=== PATIENT | male | born 1940 | race Caucasian/White ===

== ENCOUNTER 2016-08-13 08:36 | Day surgery (SDC) | payer MEDICARE, BC ==
[~2016-08-13 08:36] MED LIST: Acetaminophen TAB* 325 MG PO PRN; Buffered Lidocaine 1% SYRIN* 3 ML/SYR SYRINGE INTRADERM ONE
[2016-08-13] MEDS ORDERED: Midazolam* 1 MG/ML 5 ML VIAL (5 MG) ONE (10:31)
[2016-08-13] MEDS ORDERED: fentaNYL* 50 MCG/ML 2 ML VIAL (100 MCG VIAL) ONE (11:02)
[2016-08-13 11:32] VITALS: BP 146/82
[2016-08-13] MEDS ORDERED: Proparacaine 0.5% OPHTH.SOL* 15 ML BTL ONE (13:43)
[2016-08-13] MEDS ORDERED: Povidone Iodine 5% OPTH* 30 ML BTL ONE (13:43)
[2016-08-13] MEDS ORDERED: Neomycin/Polymy/Dex OPTH.SUSP* MAXITROL 0.1% 5 ML ONE (13:43)
[2016-08-13] MEDS ORDERED: Lidocaine 2% EPI 1:200000 MPF* 20 ML VIAL ONE (13:43)
[2016-08-13] MEDS ORDERED: Lidocaine 1% MPF* 2 ML VIAL ONE (13:43)
[2016-08-13] MEDS ORDERED: Cyclopentolate 1% OPTH.SOL* 2 ML BTL ONE (13:43)
[2016-08-13] MEDS ORDERED: Flurbiprofen 0.03% OPTH.SOL* 2.5 ML BTL ONE (13:43)
[2016-08-13] MEDS ORDERED: acetaZOLAMIDE TAB* 250 MG ONE (13:43)
[2016-08-13] MEDS ORDERED: Phenylephrine 2.5% OPTH.SOL* 2 ML BTL ONE (13:43)
--- NOTE | 2016-08-13 15:08 | OP ---
DATE OF OPERATION: 08/13/2016 - [facility] DATE OF : 1940. SURGEON: Tuan Slade M.D. PREOPERATIVE DIAGNOSIS: Cataract left eye. POSTOPERATIVE DIAGNOSIS: Cataract left eye. OPERATIVE PROCEDURE: Phacoemulsification left eye with IOL. DESCRIPTION OF PROCEDURE: The patient was brought to the operating room after being given 1/2% Alcaine with epinephrine drops in the preoperative area. The eye was prepped and draped in the usual sterile fashion. Sterile drape and eyelid speculum were placed. Again, topical 1/2% Alcaine with epinephrine was given. A paracentesis incision was made at the 3 o'clock position with the No.75 blade. Clear cornea incision 2.2 x 2.2-mm was created at the 6 o'clock position starting at the anterior limbus using the 2.2-mm keratome. The anterior chamber was irrigated with 0.4 mL of 1% non-preservative intracameral lidocaine and filled with DisCoVisc. A capsulorrhexis was completed using the cystotome and the Utrata forceps. Hydrodissection was performed with balanced salt solution. The lens nucleus was removed with the Phacoemulsification handpiece without incident. Cortex was removed with the irrigation-aspiration handpiece. The capsular bag was re-inflated using DisCoVisc and an [id number] 21.5 implant was inserted with the shooter. The irrigation-aspiration handpiece was used to remove all residual DisCoVisc. The eye was refilled with balanced salt solution and the wound checked and found to be watertight. Topical Maxitrol drops were given. [id number]/[facility] #: [id number] [facility]
== END 2016-08-13 11:40 | disposition home or self-care (01) ==
LOC: OREAST 08:36
PROVIDERS: ATTEND Specialist
DX: H25.12 Age-related nuclear cataract, left eye (principal); H34.8312 Tributary (branch) retinal vein occlusion, right eye, stable; H47.323 Drusen of optic disc, bilateral; I10 Essential (primary) hypertension; Z86.73 Personal history of transient ischemic attack (TIA), and cerebral infarction without residual deficits
CPT/HCPCS: A9270-GY; J2250; J3010; V2632

== ENCOUNTER 2017-05-24 12:28 | Emergency (ER) | payer MEDICARE, BC ==
[2017-05-24 14:51] VITALS: BP 165/102
--- NOTE | 2017-05-24 15:28 | UC ---
Ashu Bonilla Stephanie, scribed for Yoni Wiley MD on 05/24/17 at 1525 . Back Pain HPI - HPI Summary HPI Summary: The pt is a 76 y/o M presenting to with c/o back pain that began this morning when he woke up. The pain is described as constant. The pt denies radiation of pain to the LE, fever, LE numbness and dysuria. Aggravating factors include bending, movement and lifting. Pt is interested in muscle relaxers and PT. - History of Current Complaint Chief Complaint: UCBackPain Stated Complaint: BACK PAIN Time Seen by Provider: 05/24/17 15:06 Hx Obtained From: Patient Onset/Duration: Sudden Onset, Lasting Hours - since this morning, Still Present Timing: Constant Severity Currently: Moderate Pain Intensity: 7 Pain Scale Used: 0-10 Numeric Aggravating Factor(s): Movement, Lifting, Bending Alleviating Factor(s): Position Associated Signs And Symptoms: Negative: Tingling - LE - Allergies/Home Medications Allergies/Adverse Reactions: Allergies Allergy/AdvReac Type Severity Reaction Status Date / Time No Known Allergies Allergy Verified 05/24/17 14:51 PMH/Surg Hx/FS Hx/Imm Hx Cardiovascular History: Hypertension Other History Of: Anticoagulant Therapy - Surgical History Surgical History: Yes Surgery Procedure, Year, and Place: to have a cardiac ablation Apr 2012; previous ablations; hernia; GB; appendectomy - Family History Known Family History: Positive: Unknown - The pt denies any fhx. - Social History Occupation: Retired Lives: Alone Alcohol Use: Weekly Alcohol Amount: 1-2 GLASSES PER WEEK Substance Use Type: None Smoking Status (MU): Never Smoked Tobacco Review of Systems Constitutional: Negative Skin: Negative Eyes: Negative ENT: Negative Respiratory: Negative Cardiovascular: Negative Gastrointestinal: Negative Genitourinary: Negative Motor: Negative Neurovascular: Negative Musculoskeletal: Other: - back pain Neurological: Negative Psychological: Negative All Other Systems Reviewed And Are Negative: Yes Physical Exam Triage Information Reviewed: Yes Vital Signs: Initial Vital Signs Temp 97.7 F 05/24/17 14:42 Pulse 86 05/24/17 14:42 Resp 17 05/24/17 14:42 BP 165/102 05/24/17 14:42 Pulse Ox 95 05/24/17 14:42 Vital Signs Reviewed: Yes - Additional Comments General: well-appearing, no pain distress Skin: warm, color reflects adequate perfusion, dry Head: normal Eyes: EOMI, JORGITO ENT: normal Neck: supple, nontender Respiratory: CTA, breath sounds present Cardiovascular: RRR Abdomen: soft, nontender Bowel: present Musculoskeletal: strength/ROM intact, tender in paraspinous muscles in lumbar region bilaterally Neurological: normal, sensory/motor intact, A&O x3 Psychological: affect/mood appropriate Back Pain Course/Dx - Course Course Of Treatment: Medications reviewed. PT REFERRAL TO [facility]. F/U PMD; GET RECHECK IF WORSE. - Differential Dx/Diagnosis Provider Diagnoses: LOW BACK SRAIN Discharge - Discharge Plan Condition: Stable Disposition: HOME Prescriptions: Cyclobenzaprine TAB* [Flexeril 10 MG TAB*] 10 mg PO TID PRN #15 tab PRN Reason: Pain Patient Education Materials: Low Back Strain (ED) Referrals: Fernando Larios MD [Primary Care Provider] - Additional Instructions: FOLLOW UP WITH YOUR DOCTOR AND [facility], [phone]. GET RECHECKED FOR ANY WORSENING OF YOUR CONDITION; PAIN, WEAKNESS, NUMBNESS, DIFFICULTY WITH URINATION, YOU FEEL ILL OR QUESTIONS OR CONCERNS. The documentation as recorded by the Ashu burdick Stephanie accurately reflects the service I personally performed and the decisions made by me, Yoni Wiley MD.
== END 2017-05-24 15:38 | disposition home or self-care (01) ==
LOC: UCEAST 12:28
DX: S33.5XXA Sprain of ligaments of lumbar spine, initial encounter (principal); X58.XXXA Exposure to other specified factors, initial encounter; Y93.9 Activity, unspecified; Y92.9 Unspecified place or not applicable; I10 Essential (primary) hypertension; Z79.01 Long term (current) use of anticoagulants; Z90.49 Acquired absence of other specified parts of digestive tract
CPT/HCPCS: 99212; G0463

== ENCOUNTER 2018-05-10 15:11 | Emergency (ER) | payer MEDICARE, BC ==
--- NOTE | 2018-05-10 15:55 | ED ---
Palpitations / Dysrhythmia - HPI Summary HPI Summary: A 77 y/o M with PMHx: afib presents to ED with intermittent episodes of irregular and racing palpitations onset 5 days ago. Associated sx: severe fatigue. Denies: syncope, SOB, diaphoresis, and recent illness. At bedside, he feels that he in a regular rhythm, but is still having severe fatigue. Two to three days ago, his palpitations lasted 2-3 hours. During the past few days, his HR has been mildly fast but not irregular. In the past 24 hours, he feels he 's been in normal rhythm. 6 years ago, the patient had an ablasion in [place] , and states his heart has been well since. Pt sees Dr. Osborn, cardio, who is scheduled to see tomorrow AM. He spoke with Dr. Osborn today who recommended the patient be evaluated in the ED. He takes fast-acting Cardizem 30mg as needed. PMHx also includes HTN. No DM. Non-smoker. - History of Current Complaint Chief Complaint: EDDysrhythmPalp Time Seen by Provider: 05/10/18 15:35 Hx Obtained From: Patient Onset/Duration: Lasting Days, Still Present - fatigue, Resolved - afib Timing: Intermittent Episodes Lasting: - 2-3 hours Severity Currently: Moderate Character: Fast, Irregular - Allergy/Home Medications Allergies/Adverse Reactions: Allergies Allergy/AdvReac Type Severity Reaction Status Date / Time No Known Allergies Allergy Verified 05/10/18 15:33 PMH/Surg Hx/FS Hx/Imm Hx Previously Healthy: No Endocrine/Hematology History: Reports: Hx Anticoagulant Therapy Denies: Hx Diabetes Cardiovascular History: Reports: Hx Hypertension, Other Cardiovascular Problems/ Disorders - HX ARRYTHMIA- ABLATION 4.5 YEARS AGO- NO PROBLEMS SINCE Denies: Hx Pacemaker/ICD Musculoskeletal History: Denies: Hx Scoliosis Sensory History: Reports: Hx Cataracts - BILATERAL, Hx Contacts or Glasses - READING Denies: Hx Hearing Aid Opthamlomology History: Reports: Hx Cataracts - BILATERAL, Hx Contacts or Glasses - READING Neurological History: Denies: Hx Headaches, Other Neuro Impairments/Disorders - Surgical History Surgery Procedure, Year, and Place: to have a cardiac ablation Apr 2012; previous ablations; hernia; GB; appendectomy Hx Anesthesia Reactions: No - Immunization History Date of Tetanus Vaccine: ukn Date of Influenza Vaccine: ukn Infectious Disease History: No Infectious Disease History: Denies: Traveled Outside the [place] in Last 30 Days - Family History Known Family History: Positive: None Negative: Cardiac Disease - Social History Lives: Alone Alcohol Use: Weekly Alcohol Amount: 1-2 GLASSES PER WEEK Hx Substance Use: No Substance Use Type: Reports: None Hx Tobacco Use: No Smoking Status (MU): Never Smoked Tobacco Review of Systems Positive: Fatigue. Negative: Skin Diaphoresis Positive: Palpitations Negative: Shortness Of Breath Negative: Syncope All Other Systems Reviewed And Are Negative: Yes Physical Exam - Summary Physical Exam Summary: Appearance: Well appearing, no pain distress Skin: warm, dry, reflects adequate perfusion Head/face: normal Eyes: EOMI, JORGITO ENT: mucous membranes moist Neck: supple, non-tender Respiratory: CTA, breath sounds present Cardiovascular: RRR, pulses symmetrical Abdomen: non-tender, soft Bowel Sounds: present Musculoskeletal: normal, strength/ROM intact Neuro: normal, sensory motor intact, A&Ox3 Triage Information Reviewed: Yes Vital Signs On Initial Exam: Initial Vitals Temp Pulse Resp BP Pulse Ox 97.1 F 77 16 155/99 96 05/10/18 15:29 05/10/18 15:29 05/10/18 15:29 05/10/18 15:29 05/10/18 15:29 Vital Signs Reviewed: Yes Diagnostics - Vital Signs Vital Signs Temp Pulse Resp BP Pulse Ox 05/10/18 15:29 97.1 F 77 16 155/99 96 - Laboratory Result Diagrams: 05/10/18 16:08 05/10/18 16:08 Lab Statement: Any lab studies that have been ordered have been reviewed, and results considered in the medical decision making process. - Radiology CXR Radiology Interpretation Completed By: Radiologist Summary of Radiographic Findings: IMPRESSION: No active cardiopulmonary disease. ED provider has reviewed this report. - EKG 1535 Cardiac Rate: NL - 77 bpm EKG Rhythm: Sinus Rhythm ST Segment: Non-Specific Summary of EKG Findings: 1st degree AV block, nml axis Re-Evaluation - Re-Evaluation 1 Re-Evaluation Time: 17:00 Change: Unchanged Comment: Discussing results with pt and plans for discharge. Pt voiced understanding. Course/Dx - Course Course Of Treatment: nurses notes reviewed. pt with a hx of pAfib. Possible having same s/p ablation. Controlled with prn IR Cardizem. Labs benign. Has f/u in am with Dr Osborn from [facility]. D/C in good condition. - Diagnoses Differential Diagnosis/HQI/PQRI: Positive: Medication Induced, Paroxymal SVT, V- Tach, Other - PVCs, PACs Provider Diagnoses: Palpitations Discharge - Sign-Out/Discharge Documenting (check all that apply): Patient Departure - D/C - Discharge Plan Condition: Improved Disposition: HOME Patient Education Materials: Heart Palpitations (ED) Referrals: Jensen Osborn MD [Medical Doctor] - Fernando Larios MD [Primary Care Provider] - Additional Instructions: go to [facility] [employer] and get a copay card to assist with your medication cost. Follow-up with your doctor first thing tomorrow as scheduled. Take your Cardizem as needed. Return if worse, chest pain, difficulty breathing, persistent palpitations, worse or other concerns. - Billing Disposition and Condition Condition: IMPROVED Disposition: Home - Attestation Statements Document Initiated by Scribe: Yes Documenting Scribe: Vivian Richards Provider For Whom Scribe is Documenting (Include Credential): Dr. Mikal Lemon MD Scribe Attestation: I, joseph Ruizibed for Dr. Mikal Lemon MD on 05/10/18 at 1730. Scribe Documentation Reviewed: Yes Provider Attestation: The documentation as recorded by the Vivian burdick accurately reflects the service I personally performed and the decisions made by me, Dr. Mikal Lemon MD Status of Scribe Document: Viewed
[2018-05-10 16:17] LABS: ABS Basophils 0 10^3/ul (0-0.2); ABS Eosinophils 0.3 10^3/ul (0-0.6); ABS Lymphocytes 1.5 10^3/ul (1.0-4.8); ABS Monocytes 0.7 10^3/ul (0-0.8); ABS Neutrophils 3.5 10^3/ul (1.5-7.7); ABS Nucleated RBC 0 10^3/ul; Eosinophil % 5.2 %; Hematocrit 46 % (42-52); Hemoglobin 15.5 g/dl (14.0-18.0); Mean Corpuscular HGB Conc 33 g/dl (31-36); Mean Corpuscular Hemoglobin 32 pg (27-31); Mean Corpuscular Volume 95 fL (80-94); Mean Platelet Volume 7.8 fL (7.4-10.4); Nucleated Red Blood Cells % 0; Platelet Count 509 10^3/ul (150-450); Red Blood Count 4.88 10^6/ul (4.00-5.40); Red Cell Distribution Width 15 % (10.5-15)
[2018-05-10] MEDS ORDERED: Apixaban* 5 MG TAB PO ONE (16:30)
[2018-05-10 16:39] LABS: Albumin 4.7 g/dL (3.2-5.2); Albumin/Globulin Ratio 1.6 (1-3); BUN/Creatinine Ratio 12.9 (8-20); Calcium 9.9 mg/dL (8.6-10.3); Total Bilirubin 0.5 mg/dL (0.2-1.0); Total Protein 7.7 g/dL (6.4-8.9)
[2018-05-10 17:19] LABS: TSH (Thyroid Stimulating Horm) 2.58 mcIU/mL (0.34-5.60)
[2018-05-10 17:27] VITALS: BP 159/94
== END 2018-05-10 17:26 | disposition home or self-care (01) ==
LOC: ED 15:11
DX: R00.2 Palpitations (principal); R53.83 Other fatigue; Z79.01 Long term (current) use of anticoagulants
CPT/HCPCS: 36415; 71045; 80053; 83605; 83735; 83880; 84443; 84484; 85025; 93005; 99282

== ENCOUNTER 2019-01-13 20:25 | Inpatient (IN) | payer MEDICARE, BC ==
--- OUTSIDE RECORDS SUMMARY | 2019-01-13 20:52 | XMS REPORT | Continuity of Care Document ---
:1940 External Reference #:[id number] Author Name Fernando Larios M.D. Address [address] [place] [address] Care Team Providers Name Role Phone Amadou Bower MD - Surgery Care Team Information [employer] Installer [phone] Jensen Osborn MD - Cardiovascular Care Team Information Segmental Pa[employer] Installer Disease Amadou Foreman - Cardiovascular Disease Care Team Information Segmental Pa[employer] Installer [phone] Problems Active Problems Provider Date Benign essential hypertension Fernando Larios M.D. 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 Onset: obstruction Cerebrovascular disease Fernando Larios M.D. Onset: 04/04/2013 Palpitations Fernando Larios M.D. Onset: 06/21/2018 Actinic keratosis Fernando Larios M.D. Onset: 01/03/2019 Acute prostatitis Fernando Larios M.D. Onset: 01/11/2019 Inactive Problems Chalazion Fernando Larios M.D. Onset: 01/03/2019 Inactive: 01/03/2019 Conjunctivitis Fernando Larios M.D. Onset: 01/03/2019 Inactive: 01/03/2019 Adult health examination Fernando Larios M.D. Onset: 01/03/2019 Inactive: 01/03/2019 Social History Type Date Description Comments Sex Unknown Tobacco Use Start: Unknown Never Smoked Cigarettes ETOH Use Rarely consumes alcohol Tobacco Use Start: Unknown Patient has never smoked Smoking Status Reviewed: 07/20/17 Patient has never smoked Allergies, Adverse Reactions, Alerts Description No Known Drug Allergies Medications Active Medications SIG Qnty Indications Ordering Provider Date Bactrim DS 1 by mouth twice 20tabs Fernando Larios, 01/11/2019 a day M.D. 800-160mg Tablets Tobramycin instill 1 drop 5ml Fernando Larios, 01/03/2019 0.3% into affected eye M.DRosalina Solution every 4 hours for infection Diazepam 1 by mouth four 90tabs Fernando Larios, 06/21/2018 2mg times a day as M.D. Tablets needed Ramipril 1 by mouth every 90caps Fernando Larios, 01/16/2017 2.5mg day M.D. Capsules Baby Aspirin 1 po qd Family Medicine 04/04/2013 [facility] Vitamin B-12 CR 1 po qd 100tabs Fernando Larios, 08/04/2011 M.D. 1000mcg Tablets ER Potassium Chloride take 1 tablet by 90tabs Lizeth Carranza, 06/10/2010 Leah ER mouth once daily [employer] 20Meq Tablets ER Vitamin D-3 1 po qd 30tabs Unknown 4000Unit Tablets History Medications Augmentin 1 by mouth twice a 14tabs Fernando Calzada 01/03/2019 - 875-125mg Tablets day x 7 days Fernanda Larios 01/10/2019 Polymyxin B instill 2 drops 10ml H00.1 Lizeth 01/01/2019 - Sulfate/Trimethoprim right eye qid x 5 1 KORY Carranza 01/03/2019 Sulfate [place], [place]: [address]-2.1Unit/ML-% chalazion, Solution conjunctivitis Physical Therapy treatment and M54.5 Arlyn Bar, 12/28/2018 - evaluation low back [email or web address] 01/03/2019 pain Methylprednisolone dose pack as 1tabs M54.5 Lizeth 12/22/2018 - 4mg instructed KORY Carranza 12/28/2018 Tablets Medications Administered in Office Medication SIG Qnty Indications Ordering Provider Date Injection Subcutaneous Or Unknown 12/12/2017 Intramuscular Injection H1N1 MDCR vaccine any route Fernando Larios M.D. 06/18/2009 Injection Injection Subcutaneous Or Carlo Jordan M.D. 07/04/2003 Intramuscular Injection Immunizations CPT Code Status Date Vaccine Reaction Lot # [id number] Given 12/11/2018 Influenza Vac, Quadriv[place], [place] [address] Given 05/26/2018 Zoster (Shingles) Vaccine (HZV), #2 Recombinant, Subunit, Adjuvanted 36821 Given 12/17/2017 Influenza Vac, Quadriv[place], [place] [address] Given 01/16/2017 High-Dose, Influenza Virus [id number] Vacccine-fluzone 65 and older 60014 Given 01/14/2016 High-Dose, Influenza Virus [id number] Vacccine-fluzone 65 and older 98679 Given 01/12/2015 Pneumococcal Conjugate Vacc-13 [id number] 18463 Given 01/12/2015 High-Dose, Influenza Virus [id number] Vacccine-fluzone 65 and older 38192 Given 01/09/2014 High-Dose, Influenza Virus [id number] Vacccine-fluzone 65 and older 90841 Given 04/04/2013 Tdap Tetanus, W Pertussis [id number] 27747 Given 02/26/2013 Preservative free flu 3 yrs+ and older [id number] Given 01/09/2011 Split Influenza Medicare: Fluzone 51771 Given 12/21/2009 DO Not Use Split Influenza Virus [id number] Vaccine 29456 Given 03/05/2009 Pneumococcal Immunization [id number] 17994 Given 02/08/2007 DO Not Use Split Influenza Virus [id number] Vaccine 75311 Given 10/08/2006 Zostivax [id number] 02875 Given 02/03/2005 DO Not Use Split Influenza Virus Vaccine 64329 Given 06/06/2003 Pneumococcal Immunization 21462 Given 06/06/2003 Td Immunization, For Use In Individuals 7 Years Or Older 05785 Given 06/06/2003 DT Immunization 04027 Given 03/02/2003 DO Not Use Split Influenza Virus Vaccine 26345 Given 03/02/2003 DO Not Use Split Influenza Virus Vaccine 28427 Given 01/27/2002 DO Not Use Split Influenza Virus Vaccine 80542 Given 03/01/2001 DO Not Use Split Influenza Virus Vaccine 05891 Given 02/07/2000 DO Not Use Split Influenza Virus Vaccine 09334 Given 01/28/1999 Whole Influenza Virus Vaccine 20473 Given 01/28/1999 DO Not Use Split Influenza Virus Vaccine 78776 Given 02/07/1998 Influenza Immunization 97847 Given 01/12/1997 Influenza Immunization 05100 Given 02/13/1993 Td Immunization, For Use In Individuals 7 Years Or Older Vital Signs Date Vital Result Comment 01/11/2019 7:54pm BP Systolic 148 mmHg BP Diastolic 82 mmHg Heart Rate 84 /min Body Temperature 98.6 F Respiratory Rate 20 /min Weight 226.00 lb 01/03/2019 2:02pm BP Systolic 130 mmHg BP Diastolic 80 mmHg Heart Rate 78 /min Body Temperature 97.7 F Height 70.25 inches 5'10.25" measured 01/16/17 Weight 228.00 lb BMI (Body Mass Index) 32.5 kg/m2 Results Test Date Facility Test Result H/L Range Note Ua - Non Micro (a) 01/11/2019 [facility] Medicine Appearance CLEAR (607)- - Color YELLOW Glucose, Urine (a/[facility]/CTX) NEG Bilirubin NEG Ketones TRACE SP Grav 1.015 Blood NEG PH 6.0 Protein NEG Urobil 0.2 Nitrite NEG Leukocytes ([facility]/Centrex) NEG Comprehensive Metabolic 01/03/2019 Alex Cummings([facility]) Sodium 135 mEq/L 134-149 Prof Potassium 4.7 mEq/L 3.6-5.5 Chloride 103 mEq/L 94-112 Carbon Dioxide 23 mEq/L 21-32 Glucose 108 mg/dL High 70-105 1 BUN 14 mg/dL 6-26 Creatinine 0.8 mg/dL 0.6-1.4 BUN/Creat Ratio 17.5 CALC 8.0-36.0 Calcium 9.3 mg/dL 8.6-10.2 Total Protein 7.0 g/dL 6.4-8.3 Albumin 4.7 g/dL 3.8-5.5 Globulin 2.3 g/dL 2.0-4.8 A/G Ratio 2.0 CALC 0.6-2.3 Alk. Phosphatase 81 U/L 22-95 Alt (SGPT) 32 U/L 7-35 Ast (Sgot) 32 U/L 5-34 Total Bilirubin 0.4 mg/dL 0.2-1.3 GFR Non- >60 ml/min/1.73m^ >=60 GFR >60 ml/min/1.73m^ >=60 Lipid Profile 01/03/2019 Alex Zoila([facility]) Cholesterol 188 mg/dL 120- 200 Triglycerides 138 mg/dL 30-200 HDL Cholesterol 60 mg/dL 30-70 LDL (Calculated) 100 CALC 0-129 VLDL Cholesterol 28 mg/dL 0-50 HDL Risk Factor 3.1 CALC 0.0-4.4 Laboratory test 01/03/2019 Alex Zoila([facility]) Free T4 1.27 ng/dL 0.75- 1.54 finding TSH 1.86 mIU/L 0.50-6.00 PSA 0.8 ng/mL 0.0-4.0 CBC Electronic Fma 01/03/2019 Alex Zoila(a) WBC 8.2 x10^3/UL 4.0- 10.0 RBC 5.43 x10^6/UL 3.93-6.00 HGB 16.7 g/dL 12.0-17.0 HCT 50 % 35-50 MCV 92.4 fL 80.0-95.0 MCH 30.8 pg 25.6-32.2 MCHC 33.3 g/dL 32.2-36.0 RDW-CV 15.4 % High 11.6-14.4 PLT 574 x10^3/UL High 163-400 MPV 9.0 fL Low 9.4-12.4 Meghan# 5.50 x10^3/UL 1.56-6.13 Lymph# 1.48 x10^3/UL 1.18-3.74 Owsley# 0.76 x10^3/UL 0.24-0.82 Eos # 0.4 x10^3/UL 0.0-0.5 Baso # 0.06 x10^3/UL 0.01-0.08 Meghan% 67.0 % 34.0-70.0 Lymph % 18.0 % Low 20.0-52.0 Owsley% 9.3 % 5.0-12.0 Eos% 4.4 % 0.7-7.0 Baso% 0.7 % 0.1-1.2 Laboratory test finding 12/28/2018 [facility] Quickstrep negative Negative (607)- - 1 NON-FASTING Procedures Date Code Description Status 01/03/2019 16560 Electrocardiogram Complete Completed 05/01/2015 73431233 Colonoscopy Completed 01/05/2008 12655982 Colonoscopy Completed Medical Devices Description No Information Available Encounters Type Date Location Provider Dx Diagnosis Office Visit 01/03/2019 [facility] Office Fernando Larios, H00.11 Chalazion right 2:00p M.DRosalina upper eyelid I10 Essential (primary) hypertension N40.0 Benign prostatic hyperplasia without lower urinry tract symp H10.89 Other conjunctivitis L57.0 Actinic keratosis Z00.00 Encntr for general adult medical exam w/o abnormal findings Z79.82 [facility] (current) use of aspirin Office Visit 01/01/2019 12:00p [facility] Office Lizeth H00.11 Chalazion right [facility], [facility] upper eyelid H11.31 Conjunctival hemorrhage, right eye Office Visit 12/28/2018 3:40p [facility] Office Gianluca Jacobs.Boubacar Acute pharyngFernanda shcaefer unspecified M54.5 Low back pain Assessments Date Code Description Provider 01/11/2019 I10 Essential (primary) hypertension Fernando Larios M.D. 01/11/2019 N41.0 Acute prostatitis Fernando Larios M.D. 01/03/2019 H00.11 Chalazion right upper eyelid Fernando Larios M.D. 01/03/2019 I10 Essential (primary) hypertension Fernando Larios M.D. 01/03/2019 N40.0 Benign prostatic hyperplasia without lower Fernando Larios M.D. urinary tract symptoms 01/03/2019 H10.89 Other conjunctivitis Fernando Larios M.D. 01/03/2019 L57.0 Actinic keratosis Fernando Larios M.D. 01/03/2019 Z00.00 Encounter for general adult medical Fernando Larios M.D. examination without abnormal findings 01/03/2019 Z79.82 [facility] (current) use of aspirin Fernando Larios M.D. 01/01/2019 H00.11 Chalazion right upper eyelid Lizeth Tere, [employer] 01/01/2019 H11.31 Conjunctival hemorrhage, right eye Lizetheric Carranza, [facility] 12/28/2018 J02.9 Acute pharyngitis, unspecified Arlyn Bar M.D. 12/28/2018 M54.5 Low back pain Arlyn Bar M.D. Plan of Treatment 01/11/2019 - Fernando Larios M.D.I10 Essential (primary) hypertensionComments: continue current medication, call if bp elevation is persistent above 140/ 90Follow up:Followup:. (Follow up)N41.0 Acute prostatitisComments:I feel he has prostatitis, new onset of inability to void, will start on bactrim and refer to Urology urinalysis normal tonightAllNew Medication:Bactrim DS 800-160 mg - 1 by mouth twice a day Functional Status Description No Information Available Mental Status Description No Information Available Referrals Refer to Dr Reason for Referral Status Appt Date Fernando Larios MD Consult and treat. LT Created [address] [place] [address]
--- OUTSIDE RECORDS SUMMARY | 2019-01-13 20:52 | XMS REPORT | Continuity of Care Document ---
:1940 External Reference #:[id number] Author Name Fernando Larios M.D. Address [address] [place] [address] Care Team Providers Name Role Phone Amadou Bower MD - Surgery Care Team Information Assembly Line Brazer [phone] Jensen Osborn MD - Cardiovascular Care Team Information Assembly Line Brazer Disease Amadou Foreman - Cardiovascular Disease Care Team Information Assembly Line Brazer [phone] Problems Active Problems Provider Date Benign essential hypertension Fernando Larios M.D. 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 Onset: obstruction Cerebrovascular disease Fernando Larios M.D. Onset: 04/04/2013 Palpitations Fernando Larios M.D. Onset: 06/21/2018 Actinic keratosis Fernando Larios M.D. Onset: 01/03/2019 Inactive Problems Chalazion Fernando Larios M.D. Onset: [...] Medications SIG Qnty Indications Ordering Provider Date Tobramycin instill 1 drop 5ml Fernando Larios, 01/03/2019 0.3% into affected eye M.D. Solution every 4 hours for infection Augmentin 1 by mouth twice 14tabs Fernando Larios, 01/03/2019 875-125mg a day x 7 days M.D. Tablets Diazepam 1 by mouth four 90tabs Fernnado Larios, 06/21/2018 2mg times a day as M.D. Tablets needed Ramipril 1 by mouth every 90caps Fernando Larios, 01/16/2017 2.5mg day M.D. Capsules Baby Aspirin 1 po qd Family Medicine 04/04/2013 81mg [facility] Vitamin B-12 CR 1 po qd 100tabs Fernando Larios, 08/04/2011 M.D. 1000mcg Tablets ER Potassium Chloride take 1 tablet by 90tabs Lizethdewey Carranza, 06/10/2010 Leah ER mouth once daily [employer] 20Meq Tablets ER Vitamin D-3 1 po qd 30tabs Unknown 4000Unit Tablets History Medications Polymyxin B instill 2 drops 10ml H00.11 [facility] 01/01/2019 - Sulfate/Trimethoprim right eye qid x 5 KORY Carranza 01/03/2019 Sulfate days, [place]: [address]-3.1Unit/ML-% chalazion, Solution conjunctivitis Physical Therapy treatment and M54.5 Arlyn Bar, 12/28/2018 - evaluation low back M.DRosalina 01/03/2019 pain Methylprednisolone dose pack as 1tabs M54.[address] [place] [address] 12/22/2018 - 4mg Tablets instructed Tere [facility] 12/28/2018 Medications Administered in Office Medication SIG Qnty Indications Ordering Provider Date Injection Subcutaneous Or Unknown 12/12/2017 Intramuscular Injection H1N1 MDCR vaccine any route Fernando Larios M.D. 06/18/2009 Injection Injection Subcutaneous Or Carlo Jordan M.D. 07/04/2003 Intramuscular Injection Immunizations CPT Code Status Date Vaccine Reaction Lot # [id number] Given 12/11/2018 Influenza Vac, Quadrivalent, [place] [address] Given 05/26/2018 Zoster (Shingles) Vaccine (HZV), #2 Recombinant, Subunit, Adjuvanted 00201 Given 12/17/2017 Influenza Vac, [place]riv[place], [place] [address] Given 01/16/2017 High-Dose, Influenza Virus [id number] Vacccine-fluzone 65 and older 67572 Given 01/14/2016 High-Dose, Influenza Virus [id number] Vacccine-fluzone 65 and older 95612 Given 01/12/2015 Pneumococcal Conjugate Vacc-13 [id number] 53749 Given 01/12/2015 High-Dose, Influenza Virus [id number] Vacccine-fluzone 65 and older 95268 Given 01/09/2014 High-Dose, Influenza Virus [id number] Vacccine-fluzone 65 and older 33230 Given 04/04/2013 Tdap Tetanus, W Pertussis [id number] 33338 Given 02/26/2013 Preservative free flu 3 yrs+ and older [id number] Given 01/09/2011 Split Influenza Medicare: Fluzone 03350 Given 12/21/2009 DO Not Use Split Influenza Virus [id number] Vaccine 94934 Given 03/05/2009 Pneumococcal Immunization [id number] 65671 Given 02/08/2007 DO Not Use Split Influenza Virus [id number] Vaccine 66661 Given 10/08/2006 Zostivax [id number] 45221 Given 02/03/2005 DO Not Use Split Influenza Virus Vaccine 59307 Given 06/06/2003 Pneumococcal Immunization 15421 Given 06/06/2003 Td Immunization, For Use In Individuals 7 Years Or Older 71203 Given 06/06/2003 DT Immunization 84791 Given 03/02/2003 DO Not Use Split Influenza Virus Vaccine 88503 Given 03/02/2003 DO Not Use Split Influenza Virus Vaccine 76322 Given 01/27/2002 DO Not Use Split Influenza Virus Vaccine 69081 Given 03/01/2001 DO Not Use Split Influenza Virus Vaccine 75433 Given 02/07/2000 DO Not Use Split Influenza Virus Vaccine 26126 Given 01/28/1999 Whole Influenza Virus Vaccine 30994 Given 01/28/1999 DO Not Use Split Influenza Virus Vaccine 51834 Given 02/07/1998 Influenza Immunization 88477 Given 01/12/1997 Influenza Immunization 87326 Given 02/13/1993 Td Immunization, For Use In Individuals 7 Years Or Older Vital Signs Date Vital Result Comment 01/03/2019 2:02pm BP Systolic 130 mmHg BP Diastolic 80 mmHg Heart Rate 78 /min Body Temperature 97.7 F Height 70.25 inches 5'10.25" measured 01/16/17 Weight 228.00 lb BMI (Body Mass Index) 32.5 kg/m2 01/01/2019 12:10pm BP Systolic 138 mmHg BP Diastolic 88 mmHg Heart Rate 84 /min Body Temperature 97.7 F Respiratory Rate 16 /min Height 70.25 inches 5'10.25" measured 01/16/17 Weight 229.25 lb BMI (Body Mass Index) 32.7 kg/m2 Results Test Date Facility Test Result H/L Range Note Laboratory test 01/03/2019 [facility](fma) Free T4 <pending> 0.75- 1.54 finding TSH <pending> 0.5-5.0 PSA (ALL Lab Comp) <pending> 0.0-4.0 Laboratory test finding 12/28/2018 [facility] Quickstrep negative Negative (607)- - Procedures Date Code Description Status 05/01/2015 30154685 Colonoscopy Completed 01/05/2008 61380840 Colonoscopy Completed Medical Devices Description No Information Available Encounters Type Date Location Provider Dx Diagnosis Office Visit 01/01/2019 [facility] Lizeth Tere, H00.11 Chalazion right 12:00p [employer] upper eyelid H11.31 Conjunctival hemorrhage, right eye Office Visit 12/28/2018 3:[facility]p [facility] Arlyn Bar, J02.9 Acute pharyngitis, MRosalinaDRosalina unspecified M54.5 Low back pain Assessments Date Code Description Provider 01/03/2019 H00.11 Chalazion right upper eyelid Fernando Larios M.D. 01/03/2019 I10 Essential (primary) hypertension Fernando Larios M.D. 01/03/2019 N40.0 Benign prostatic hyperplasia without lower Fernando Larios M.D. urinary tract symptoms 01/03/2019 H10.89 Other conjunctivitis Fernando Larios M.D. 01/03/2019 L57.0 Actinic keratosis Fernando Larios M.D. 01/03/2019 Z00.00 Encounter for general adult medical Fernando Larios M.D. examination without abnormal findings 01/01/2019 H00.11 Chalazion right upper eyelid Lizeth Carranza, [facility] 01/01/2019 H11.31 Conjunctival hemorrhage, right eye Lizeth Carranza, [facility] 12/28/2018 J02.9 Acute pharyngitis, unspecified Arlyn Bar M.D. 12/28/2018 M54.5 Low back pain Arlyn Bar M.D. Plan of Treatment 01/03/2019 - Fernando Larios M.D.H00.11 Chalazion right upper eyelidComments: Change from polymyxin to tobramycin ophthalmic, and Augmentin twice a day for one week. Consider repeat visit with [id number] Essential (primary) hypertensionNew Labs:Ua - Non Micro (Fma), Ordered: 01/03/19Comments:Blood pressure has been under reasonable control on present dose of ramipril 2.5 mg daily, continue to monitor hopefully to obtain readings less than 140/90N40.0 Benign prostatic hyperplasia without lower urinary tract symptomsNew Labs:Ua - Non Micro (Fma), Ordered: 01/03/19Comments:The patient was advised to have yearly digital rectal exams, and a yearly psaH10.89 Other conjunctivitisComments :Patient will contact us if no gccnhuvjkevQ09.0 Actinic keratosisComments: Continue followup with Dr. Sierra's office regarding actinic keratosis, we discussed the possibility of 5-fluorouracil lyaylL88.00 Encounter for general adult medical examination without abnormal findingsNew Labs:Ict Hemoccult (Fma) , Ordered: 01/03/19Ua - Non Micro (Fma), Ordered: 01/03/19Comments:Patient is already had a flu shot at his pharmacyEKG shows normal sinus rhythm, normal tracingFollow up:Followup:. (Follow up)AllNew Medication:Tobramycin 0.3 % - instill 1 drop into affected eye every 4 hours for infectionAugmentin 875-125 mg - 1 by mouth twice a day x 7 daysComments:Medication Management Patient Understands medications he's taking? Yes No Are there Barriersto Adherence? Yes No Has the patient been asked about herbal supplements and therapies, and OTC meds? Yes No Functional Status Description No Information Available Mental Status Description No Information Available Referrals Description No Information Available
--- OUTSIDE RECORDS SUMMARY | 2019-01-13 20:53 | XMS REPORT | Continuity of Care Document ---
:1940 External Reference #:[id number] Author Name Inna Obrien O.D. Address [address] [place] [address] Care Team Providers Name Role Phone Fernando Larios M.D. - Internal Care Team Information Publishing Director Medicine Problems Active Problems Provider Date Essential hypertension Onset: Ischemic stroke Tuan Slade M.D. Onset: 02/13/2015 Note: 2006 Drusen of optic disc Tuan Slade M.D. Onset: 02/13/2015 Nuclear senile cataract Tuan Slade M.D. Onset: 02/13/2015 Venous retinal branch occlusion Monica Meija O.D. Onset: 06/20/2016 Presence of intraocular lens Tuan Slade M.D. Onset: 08/07/2016 Blepharitis Monica Mejia O.D. Onset: 08/23/2016 Myopia Monica Mejia O.D. Onset: 10/09/2016 Regular astigmatism Monica Mejia O.D. Onset: 10/09/2016 Presbyopia Monica Mejia O.D. Onset: 10/09/2016 Vitreous degeneration Tuan Slade M.D. Onset: 10/27/2016 Migraine with typical aura Tuan Slade M.D. Onset: 11/09/2018 Superficial punctate keratitis Monica Mejia O.D. Onset: 12/29/2018 Angular blepharoconjunctivitis Inna Obrien O.D. Onset: 12/30/2018 Meibomian gland dysfunction right eye, Inna Obrien O.D. Onset: 2018 upper and lower eyelids Meibomian gland dysfunction left eye, Inna Obrien O.D. Onset: 2018 upper and lower eyelids Chalazion Inna Obrien O.D. Onset: 12/31/2018 Social History Type Date Description Comments Sex Unknown ETOH Use Occasionally consumes alcohol Tobacco Use Start: Unknown Patient has never smoked Recreational Drug Use Denies Drug Use Smoking Status Reviewed: 12/31/18 Patient has never smoked Allergies, Adverse Reactions, Alerts Description No Known Drug Allergies Medications Active Medications SIG Qnty Indications Ordering Provider Date Ocusoft Lid Scrub twice a day 60units Tuan Slade, 12/30/2018 Plus M.DRosalina Pads Neomycin/Polymyxin/De apply /" in 3.500gm H10.523 Inna Ibrahim 12/30/2018 xamethasone both eyes at Kathy Obrien bedtime for 2 3.5-43113-1.1 weeks. Ointment Fish Oil 1 by mouth every Tuan Slade, 02/12/2015 1000mg day M.DRosalina Capsules Lutein 20 Tuan Slade, 02/12/2015 Capsules M.D. Refresh One drop in both Tuan Slade, 02/12/2015 1.4-0.6% eyes as needed M.D. Solution Potassium Chloride Unknown Leah ER 20Meq Tablets ER Aspir-[address] Nikolas Complete Unknown Capsules Immunizations Description No Information Available Vital Signs Description No Information Available Results Description No Information Available Procedures Date Code Description Status 11/09/2018 59437 Est Patient Comprehensive Exam Completed 11/09/2018 510 Eye Scrubs 30 Count Completed Medical Devices Description No Information Available Encounters Type Date Location Provider Dx Diagnosis Office Visit 12/30/2018 Inna Maldonado H10.523 Angular 9:30a , pc Kathy Obrien blepharoconjuncti vitis, bilateral H02.88A Meibomian gland dysfnct right eye, upper and lower eyelids H02.88B Meibomian gland dysfnct left eye, upper and lower eyelids H16.141 Punctate keratitis, right eye Office Visit 12/29/2018 3:15p Tuan Hess Monica Mejia, H16.141 Punctate MD Yany, O.Emilia keratitis, right eye Assessments Date Code Description Provider 12/31/2018 H00.11 Chalazion right upper eyelid Inna Obrien O.D. 12/31/2018 H10.523 Angular blepharoconjunctivitis, Inna Obrien O.D. bilateral 12/30/2018 H10.523 Angular blepharoconjunctivitis, Inna Obrien O.D. bilateral 12/30/2018 H02.88A Meibomian gland dysfunction right eye, Inna Obrien O.D. upper and lower eyelids 12/30/2018 H02.88B Meibomian gland dysfunction left eye, Inna Obrien O.D. upper and lower eyelids 12/30/2018 H16.141 Punctate keratitis, right eye Inna Obrien O.D. 12/29/2018 H16.141 Punctate keratitis, right eye Monica Mejia O.D. 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 11/09/2018 G43.109 Migraine with aura, not intractable, Tuan Slade M.D. without status migrainosus Plan of Treatment Future Appointment(s):01/10/2019 3:20 pm - Inna Obrien O.D. at Tuan Slade [facility], 11/14/2019 1:45 pm - Tuan Slade M.D. at Tuan Slade [facility] , 11/14/2019 1:00 pm - [facility] at Tuan Slade [facility], 12/31/2018 - Inna Obrien O.D.H00.11 Chalazion right upper eyelidComments:USE HOT COMPRESSES FOR 5-10 MINUTES 3-4 TIMES A DAYUSE OINTMENT IN MORNING AND AT BEDTIME. APPLY TO ALL LID MARGINS.USE ARTIFICIAL TEARS AT LUNCH AND DINNER TIMEFollow up:5 DAY TPOHPWUS99.523 Angular blepharoconjunctivitis, bilateral Functional Status Description No Information Available Mental Status Description No Information Available Referrals Description No Information Available
--- OUTSIDE RECORDS SUMMARY | 2019-01-13 20:53 | XMS REPORT | Continuity of Care Document ---
:1940 External Reference #:[id number] Author Name Arlyn Bar M.D. Address [address] [place] [address] Care Team Providers Name Role Phone Amadou Bower MD - Surgery Care Team Information Iron Handler [phone] Jensen Osborn MD - Cardiovascular Care Team Information Iron Handler Disease Amadou Foreman - Cardiovascular Disease Care Team Information Iron Handler Problems Active Problems Provider Date Benign essential hypertension Fernando Larios M.D. 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 Onset: obstruction Skin sensation disturbance Fernando Larios M.D. Onset: 08/04/2011 Cerebrovascular disease Fernando Larios M.D. Onset: 04/04/2013 Palpitations Fernando Larios M.D. Onset: 06/21/2018 Social History Type Date Description Comments Sex Unknown Tobacco Use Start: Unknown Never Smoked Cigarettes ETOH Use Rarely consumes alcohol Tobacco Use Start: Unknown Patient has never smoked Smoking Status Reviewed: 07/20/17 Patient has never smoked Allergies, Adverse Reactions, Alerts Description No Known Drug Allergies Medications Active Medications SIG Qnty Indications Ordering Provider Date Physical Therapy treatment and M54.5 Arlyn Bar, 12/28/2018 evaluation low M.D. back pain Diazepam 1 by mouth four 90tabs Fernando Larios, 06/21/2018 2mg times a day as M.D. Tablets needed Elidel apply thin layer 30gm Jannie Sukumar 01/13/2018 1% Cream to affected skin LINNETTE Stevens twice daily for 2 weeks. may resume after 1 week break. Ramipril 1 by mouth every 90caps Fernando MarbellaRosalina Larios, 01/16/2017 2.5mg day M.D. Capsules Ciclopirox Olamine apply once a day 90units Fernando MarbellaRosalina Larios, 01/14/2016 to feet M.D. 0.77% Cream Baby Aspirin 1 po qd Family Medicine 04/04/2013 [facility] Vitamin B-12 CR 1 po qd 100tabs Fernando Larios, 08/04/2011 M.D. 1000mcg Tablets ER Potassium Chloride take 1 tablet by 90tabs [place] 06/10/2010 Leah ER mouth once daily KORY Carranza 20Meq Tablets ER Vitamin D-3 1 po qd 30tabs Unknown 4000Unit Tablets History Medications Methylprednisolone dose pack as 1tabs M54.5 [place] 12/22/2018 - 4mg Tablets instructed KORY Carranza 12/28/2018 Medications Administered in Office Medication SIG Qnty Indications Ordering Provider Date Injection Subcutaneous Or Unknown 12/12/2017 Intramuscular Injection H1N1 MDCR vaccine any route Fernando Larios M.D. 06/18/2009 Injection Injection Subcutaneous Or Carlo Jordan M.D. 07/04/2003 Intramuscular Injection Immunizations CPT Code Status Date Vaccine Reaction Lot # [id number] Given 12/11/2018 Influenza Vac, Quadriv[place], [place] [address] Given 05/26/2018 Zoster (Shingles) Vaccine (HZV), #2 Recombinant, Subunit, Adjuvanted 75089 Given 12/17/2017 Influenza Vac, Quadriv[place], [place] [address] Given 01/16/2017 High-Dose, Influenza Virus [id number] Vacccine-fluzone 65 and older 31320 Given 01/14/2016 High-Dose, Influenza Virus [id number] Vacccine-fluzone 65 and older 24819 Given 01/12/2015 Pneumococcal Conjugate Vacc-13 [id number] 41275 Given 01/12/2015 High-Dose, Influenza Virus [id number] Vacccine-fluzone 65 and older 15003 Given 01/09/2014 High-Dose, Influenza Virus [id number] Vacccine-fluzone 65 and older 42986 Given 04/04/2013 Tdap Tetanus, W Pertussis [id number] 51904 Given 02/26/2013 Preservative free flu 3 yrs+ and older [id number] Given 01/09/2011 Split Influenza Medicare: Fluzone 66347 Given 12/21/2009 DO Not Use Split Influenza Virus [id number] Vaccine 91994 Given 03/05/2009 Pneumococcal Immunization [id number] 56167 Given 02/08/2007 DO Not Use Split Influenza Virus [id number] Vaccine 82393 Given 10/08/2006 Zostivax [id number] 35029 Given 02/03/2005 DO Not Use Split Influenza Virus Vaccine 00079 Given 06/06/2003 Pneumococcal Immunization 13301 Given 06/06/2003 Td Immunization, For Use In Individuals 7 Years Or Older 54122 Given 06/06/2003 DT Immunization 23946 Given 03/02/2003 DO Not Use Split Influenza Virus Vaccine 37903 Given 03/02/2003 DO Not Use Split Influenza Virus Vaccine 90666 Given 01/27/2002 DO Not Use Split Influenza Virus Vaccine 98797 Given 03/01/2001 DO Not Use Split Influenza Virus Vaccine 37365 Given 02/07/2000 DO Not Use Split Influenza Virus Vaccine 14461 Given 01/28/1999 Whole Influenza Virus Vaccine 39558 Given 01/28/1999 DO Not Use Split Influenza Virus Vaccine 20420 Given 02/07/1998 Influenza Immunization 07096 Given 01/12/1997 Influenza Immunization 98199 Given 02/13/1993 Td Immunization, For Use In Individuals 7 Years Or Older Vital Signs Date Vital Result Comment 12/28/2018 3:43pm BP Systolic 128 mmHg BP Diastolic 70 mmHg Heart Rate 92 /min Body Temperature 97.6 F Respiratory Rate 16 /min Height 70.25 inches 5'10.25" measured 01/16/17 Weight 226.00 lb BMI (Body Mass Index) 32.2 kg/m2 06/21/2018 10:31am BP Systolic 132 mmHg BP Diastolic 82 mmHg Heart Rate 78 /min Body Temperature 98.2 F Height 70.25 inches 5'10.25" measured 01/16/17 Weight 234.00 lb BMI (Body Mass Index) 33.3 kg/m2 Results Description No Information Available Procedures Date Code Description Status 05/01/2015 12299303 Colonoscopy Completed 01/05/2008 01139072 Colonoscopy Completed Medical Devices Description No Information Available Encounters Description No Information Available Assessments Date Code Description Provider 12/28/2018 J02.9 Acute pharyngitis, unspecified Arlyn Bar M.D. 12/28/2018 M54.5 Low back pain Arlyn Bar M.D. Plan of Treatment Future Appointment(s):01/03/2019 2:00 pm - Fernando Larios M.D. at [facility]v2912/28/2018 - Arlyn Bar M.D.J02.9 Acute pharyngitis, unspecifiedNew Labs:Quickstrep, Ordered: 12/28/18Comments:patient was instructed to call or return if symptoms did not vnmczbyD90.5 Low back painNew Medication:Physical Therapy - treatment and evaluation low back painComments:Take medications as directed. Can use heat or ice on area 15 minutes on/off. Use a tennis ball or foam roller to massage and loosen muscle spasm. Stretching exercises are recommended twice a day. Callif symptoms aren't improved/worsen in next 1-2 weeks. Refer to physical therapyFollow up:physicalAllComments:Medication Management Patient Understands medications he's taking? Yes No Are there Barriersto Adherence? Yes No Has the patient been asked about herbal supplements and therapies, and OTC meds? Yes No Functional Status Description No Information Available Mental Status Description No Information Available Referrals Description No Information Available
--- OUTSIDE RECORDS SUMMARY | 2019-01-13 20:53 | XMS REPORT | Continuity of Care Document ---
:1940 External Reference #:[id number] Author Name Inna Obrien O.D. Address [address] [place] [address] Care Team Providers Name Role Phone Fernando Larios M.D. - Internal Care Team Information Switchboard Manager Medicine Problems Active Problems Provider Date Essential hypertension Onset: Ischemic stroke Tuan Slade M.D. Onset: 02/13/2015 Note: 2006 Drusen of optic disc Tuan Slade M.D. Onset: 02/13/2015 Nuclear senile cataract Tuan Slade M.D. Onset: 02/13/2015 Venous retinal branch occlusion Monica Mejia O.D. Onset: 06/20/2016 Presence of intraocular lens Tuan Slade M.D. Onset: 08/07/2016 Blepharitis Monica Mejia O.D. Onset: 08/23/2016 Myopia Monica Mejia O.D. Onset: 10/09/2016 Regular astigmatism Monica Mejia O.D. Onset: 10/09/2016 Presbyopia Monica Mejia O.D. Onset: 10/09/2016 Vitreous degeneration Tuan Slade M.D. Onset: 10/27/2016 Migraine with typical aura Tuan Slade M.D. Onset: 11/09/2018 Superficial punctate keratitis Monica Mejia O.D. Onset: 12/29/2018 Meibomian gland dysfunction left eye, Inna Obrien O.D. Onset: 2018 upper and lower eyelids Meibomian gland dysfunction right eye, Inna Obrien O.D. Onset: 2018 upper and lower eyelids Angular blepharoconjunctivitis Inna Obrien O.D. Onset: 12/30/2018 Social History Type Date Description Comments Sex Unknown ETOH Use Occasionally consumes alcohol Tobacco Use Start: Unknown Patient has never smoked Recreational Drug Use Denies Drug Use Smoking Status Reviewed: 12/30/18 Patient has never smoked Allergies, Adverse Reactions, Alerts Description No Known Drug Allergies Medications Active Medications SIG Qnty Indications Ordering Provider Date Ocusoft Lid Scrub twice a day 60units Tuan Slade, 12/30/2018 Plus M.D. Pads Neomycin/Polymyxin/De apply 04/23" in 3.500gm H10.523 Inna Ibrahim 12/30/2018 xamethasone both eyes at [place], O.D. bedtime for 2 3.5-79099-3.1 weeks. Ointment Fish Oil 1 by mouth every Tuan Slade, 02/12/2015 1000mg day M.D. Capsules Lutein 20 Tuan Slade, 02/12/2015 Capsules M.D. Refresh One drop in both Tuan Slade, 02/12/2015 1.4-0.6% eyes as needed M.D. Solution Potassium Chloride Unknown Leah ER 20Meq Tablets ER Aspir-[address] Multi Complete Unknown Capsules Immunizations Description No Information Available Vital Signs Description No Information Available Results Description No Information Available Procedures Date Code Description Status 11/09/2018 43368 Est Patient Comprehensive Exam Completed 11/09/2018 510 Eye Scrubs 30 Count Completed Medical Devices Description No Information Available Encounters Type Date Location Provider Dx Diagnosis Office Visit 12/29/2018 Tuan Slade, Monica Mejia, H16.141 Punctate 3:15p , pc Kathy keratitis, right eye Assessments Date Code Description Provider 12/30/2018 H10.523 Angular blepharoconjunctivitis, Inna Obrien O.D. [...] without status migrainosus Plan of Treatment Future Appointment(s):11/14/2019 1:45 pm - Tuan Slade M.D. at Tuan Slade [facility], 11/14/2019 1:00 pm - [facility] at Tuan Slade [facility], 2018 - Inna Obrien O.D.H10.523 Angular blepharoconjunctivitis, bilateralNew Medication:Neomycin/Polymyxin/Dexamethasone 3.5-01859-8.1 - apply 1/4" in both eyes at bedtime for 2 weeks.Comments:USE HOT COMPRESSES 5-10 MINUTES AT LEAST TWICE A DAYUSE OINTMENT ON ALL LIDS AT BED TIME BOTH EYESUSE LID SCRUBSARTIFICIAL TEARS 3-4XDAYFollow up:1-2 KMSRYQ61.88A Meibomian gland dysfunction right eye, upper and lower lhhioxhZ85.88B Meibomian gland dysfunction left eye, upper and lower qvgrmhxU46.141 Punctate keratitis, right eye Functional Status Description No Information Available Mental Status Description No Information Available Referrals Description No Information Available
--- OUTSIDE RECORDS SUMMARY | 2019-01-13 20:53 | XMS REPORT | Continuity of Care Document ---
:1940 External Reference #:[id number] Author Name KORY Enamorado Address [address] [place] [address] Care Team Providers Name Role Phone Amadou Bower MD - Surgery Care Team Information Medical Supervisor [phone] Jensen Osborn MD - Cardiovascular Care Team Information Medical Supervisor Disease Amadou Foerman - Cardiovascular Disease Care Team Information Medical Supervisor Problems Active Problems Provider Date Benign essential [...] Medications Active Medications SIG Qnty Indications Ordering Date Provider Polymyxin B instill 2 drops right 10ml H00.11 Lizeth 01/01/2019 Sulfate/Trimethopr eye qid x 5 days, KORY Carranza im Sulfate ind: chalazion, conjunctivitis 77627-3.1Unit/ML-% Solution Physical Therapy treatment and 4 Arlyn Bar, 12/28/2018 evaluation low back M.D. pain Diazepam 1 by mouth four times 90tabs Fernando Calzada 06/21/2018 2mg a day as needed Fernanda Larios Tablets Elidel apply thin layer to 30gm Jannie San. 01/13/2018 1% Cream affected skin twice LINNETTE Stevens daily for 2 weeks. may resume after 1 week break. Ramipril 1 by mouth every day 90caps Fernando F. 01/16/2017 2.5mg Fernanda Larios Capsules Ciclopirox Olamine apply once a day to 90units Fernando FRosalina 01/14/2016 feet Fernanda Larios 0.77% Cream Baby Aspirin 1 po qd [facility] 04/04/2013 81mg [facility] Vitamin B-12 CR 1 po qd 100tabs Fernando FRosalina 08/04/2011 Fernanda Larios 1000mcg Tablets ER Potassium Chloride take 1 tablet by 90tabs [place] 06/10/2010 Leah ER mouth once daily KORY Carranza 20Meq Tablets ER Vitamin D-3 1 po qd 30tabs Unknown 4000Unit Tablets History Medications Methylprednisolone dose pack as 1tabs M54.5 Lizeth 12/22/2018 - 4mg Tablets instructed KORY Carranza 12/28/2018 Medications Administered in Office Medication SIG Qnty Indications Ordering Provider Date Injection Subcutaneous Or Unknown 12/12/2017 Intramuscular Injection H1N1 MDCR vaccine any route Fernando Larios M.D. 06/18/2009 Injection Injection Subcutaneous Or Carlo Jordan M.D. 07/04/2003 Intramuscular Injection Immunizations CPT Code Status Date Vaccine Reaction Lot # [id number] Given 12/11/2018 Influenza Vac, Quadriv[place], [place] [id number] Given 05/26/2018 Zoster (Shingles) Vaccine (HZV), #2 Recombinant, Subunit, Adjuvanted 01212 Given 12/17/2017 Influenza Vac, Quadriv[place], [place] [address] Given 01/16/2017 High-Dose, Influenza Virus [id number] Vacccine-fluzone 65 and older 58908 Given 01/14/2016 High-Dose, Influenza Virus [id number] Vacccine-fluzone 65 and older 13667 Given 01/12/2015 Pneumococcal Conjugate Vacc-13 [id number] 08853 Given 01/12/2015 High-Dose, Influenza Virus [id number] Vacccine-fluzone 65 and older 09153 Given 01/09/2014 High-Dose, Influenza Virus [id number] Vacccine-fluzone 65 and older 32258 Given 04/04/2013 Tdap Tetanus, W Pertussis [id number] 14066 Given 02/26/2013 Preservative free flu 3 yrs+ and older [id number] Given 01/09/2011 Split Influenza Medicare: Fluzone 15476 Given 12/21/2009 DO Not Use Split Influenza Virus [id number] Vaccine 18568 Given 03/05/2009 Pneumococcal Immunization [id number] 33481 Given 02/08/2007 DO Not Use Split Influenza Virus [id number] Vaccine 40558 Given 10/08/2006 Zostivax [id number] 71114 Given 02/03/2005 DO Not Use Split Influenza Virus Vaccine 10883 Given 06/06/2003 Pneumococcal Immunization 31931 Given 06/06/2003 Td Immunization, For Use In Individuals 7 Years Or Older 74671 Given 06/06/2003 DT Immunization 69327 Given 03/02/2003 DO Not Use Split Influenza Virus Vaccine 95588 Given 03/02/2003 DO Not Use Split Influenza Virus Vaccine 98554 Given 01/27/2002 DO Not Use Split Influenza Virus Vaccine 35977 Given 03/01/2001 DO Not Use Split Influenza Virus Vaccine 84910 Given 02/07/2000 DO Not Use Split Influenza Virus Vaccine 92231 Given 01/28/1999 Whole Influenza Virus Vaccine 03004 Given 01/28/1999 DO Not Use Split Influenza Virus Vaccine 07720 Given 02/07/1998 Influenza Immunization 59106 Given 01/12/1997 Influenza Immunization 21984 Given 02/13/1993 Td Immunization, For Use In Individuals 7 Years Or Older Vital Signs Date Vital Result Comment 01/01/2019 12:10pm BP Systolic 138 mmHg BP Diastolic 88 mmHg Heart Rate 84 /min Body Temperature 97.7 F Respiratory Rate 16 /min Height 70.25 inches 5'10.25" measured 01/16/17 Weight 229.25 lb BMI (Body Mass Index) 32.7 kg/m2 12/28/2018 3:43pm BP Systolic 128 mmHg BP Diastolic 70 mmHg Heart Rate 92 /min Body Temperature 97.6 F Respiratory Rate 16 /min Height 70.25 inches 5'10.25" measured 01/16/17 Weight 226.00 lb BMI (Body Mass Index) 32.2 kg/m2 Results Test Date Facility Test Result H/L Range Note Laboratory test 12/28/2018 [facility] Quickstrep negative Negative finding (607)- - Procedures Date Code Description Status 05/01/2015 92381372 Colonoscopy Completed 01/05/2008 95230994 Colonoscopy Completed Medical Devices Description No Information Available Encounters Type Date Location Provider Dx Diagnosis Office Visit 12/28/2018 [facility] Arlyn Bar J02.9 Acute pharyngitis, 3:40p M.DRosalina unspecified M54.5 Low back pain Assessments Date Code Description Provider 01/01/2019 H00.11 Chalazion right upper eyelid Lizeth Carranza, [facility] 01/01/2019 H11.31 Conjunctival hemorrhage, right eye Lizeth Carranza, [facility] 12/28/2018 J02.9 Acute pharyngitis, unspecified Arlyn Bar M.D. 12/28/2018 M54.5 Low back pain Arlyn Bar M.D. Plan of Treatment Future Appointment(s):01/03/2019 2:00 pm - Fernando Larios M.D. at [facility]01/01/2019 - Lizeth Carranza, FNPH00.11 Chalazion right upper eyelidNew Medication:Polymyxin B Sulfate/Trimethoprim Sulfate 61290-4.1 Unit/ML-% - instill 2 drops right eye qid x 5 days, ind: chalazion, conjunctivitisComments: SWITCH from ointment to drops, DO NOT USE BOTHOk to continue lubricant drops as previously prescribed/described, use the lubricant drops first and follow with medicated drops so as to retain the medicated dropsI would suggest only treating right eye, the left eye is not affectedWarm compresses help to unclog the gland responsible for the swollen lid: make a washrag very warm under tap water, and keep applied to closed eye until the heat is gonePerform the compress at least 2x dailyAvoid rubbing, scratching the eyes which further irritatesThis may take up to 10 days to resolve entirely, even havingstarted sxdbhzpzaN93.31 Conjunctival hemorrhage, right eyeAllComments:Medication Management Patient Understands medications he 's taking? Yes No Are there Barriers to Adherence? Yes No Has the patient been asked about herbal supplements and therapies, andOTC meds? Yes No As always, we strongly encourage a healthy diet and making physical activity a part of your every day life. If you have questions about how or where to start, please contact the office. Functional Status Description No Information Available Mental Status Description No Information Available Referrals Description No Information Available
--- OUTSIDE RECORDS SUMMARY | 2019-01-13 20:53 | XMS REPORT | Continuity of Care Document ---
:1940 External Reference #:[id number] Author Name Monica Mejia O.D. Address [address] [place] [address] Care Team Providers Name Role Phone Fernando Larios M.D. - Internal Care Team Information Greens Picker Medicine Problems Active Problems Provider Date Essential [...] punctate keratitis Monica Mejia O.D. Onset: 12/29/2018 Social History Type Date Description Comments Sex Unknown ETOH Use Occasionally consumes alcohol Tobacco Use Start: Unknown Patient has never smoked Recreational Drug Use Denies Drug Use Smoking Status Reviewed: 12/29/18 Patient has never smoked Allergies, Adverse Reactions, Alerts Description No Known Drug Allergies Medications Active Medications SIG Qnty Indications Ordering Provider Date Fish Oil 1 by mouth every Tuan Slade, 02/12/2015 1000mg Capsules day M.D. Lutein 20 Tuan Slade, 02/12/2015 Capsules M.D. Refresh One drop in both Tuan Slade, 02/12/2015 1.4-0.6% Solution eyes as needed M.D. 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 right eye, stable 11/09/2018 Z96.1 Presence of intraocular lens Tuan Slade M.D. 11/09/2018 G43.109 Migraine with aura, not intractable, Tuan Slade M.D. without status migrainosus Plan of Treatment Future Appointment(s):11/14/2019 1:45 pm - Tuan Slade M.D. at [facility], 11/14/2019 1:00 pm - [facility], 2018 - Monica Mejia O.D.H16.141 Punctate keratitis, right eyeComments: Smoking can increase the risk of developing or worsening any eye related disease , as well as affect your overall health. If you are a smoker, we strongly recommend that you quit.If you are not a smoker, we strongly recommend that you do not start. INCREASE THE ARTIFICIAL TEARS TO 3-4 TIMES A DAY IN THE RIGHT EYEIF YOUR SYMPTOMS PERSIST, PLEASE CALL THE OFFICE TO BE SEENFollow up: SCHEDULED Functional Status Description No Information Available Mental Status Description No Information Available Referrals Description No Information Available
[2019-01-13] MEDS ORDERED: Ondansetron INJ* 2 MG/ML VIAL IV ONE (23:00)
[2019-01-13] MEDS ORDERED: NS 0.9% 1000 ML** 1,000 ML IV ONE (23:00)
[2019-01-13] MEDS ORDERED: Ketorolac INJ* 30 MG/ML 1 ML VIAL IV ONE (23:00)
[2019-01-13] MEDS ORDERED: cefTRIAXone(*) 1 GM in NS 0.9% 50 ML* 50 ML IVPB ONE (23:00)
--- NOTE | 2019-01-13 23:01 | ED ---
Abdominal Pain/Male - HPI Summary HPI Summary: This pt is a 78 y/[facility] lower abdominal pain since 01/10/19. Patient reports he saw his PCP on 01/11/19 for this abd pain and was placed on Bactrim for a UTI. Since then he notes his abd pain has been worsening. Patient saw Dr. Tenorio, urologist, today and had a bradford catheter placed. Pt states he has emptied his bradford twice since being in the ED today and the last time was about 15 minutes ago at 2245. He notes he has had some back pain described as "muscle soreness" for the past 1 month. As of today, pt reports decreased appetite. Denies fever, nausea, vomiting, feeling of urinary retention. Pt also reports he usually walks 3-4 miles a day but he states he wouldn't trust himself to walk through the door right now. He states it feels like his balance is off. PMHx includes CVA where he also had unsteady gait. NKDA. - History of Current Complaint Chief Complaint: EDUrogenitalProblems Stated Complaint: ABD PAIN PER PT Time Seen by Provider: 01/13/19 22:36 Hx Obtained From: Patient Onset/Duration: Lasting Days, Still Present Timing: Lasting Days Severity Currently: Moderate Pain Intensity: 8 Pain Scale Used: 0-10 Numeric Location: Suprapubic Radiates: No Character: Burning Aggravating Factor(s): Nothing Alleviating Factor(s): Nothing Associated Signs And Symptoms: Positive: Other - POSITIVE: decreased appetite, unsteady gait.. Negative: Fever, Nausea, Vomiting - Allergies/Home Medications Allergies/Adverse Reactions: Allergies Allergy/AdvReac Type Severity Reaction Status Date / Time No Known Allergies Allergy Verified 01/13/19 20:35 Home Medications: Home Medications Ramipril CAP* [Altace CAP*] 2.5 mg PO DAILY 01/14/19 [History Confirmed 01/14/19 ] PMH/Surg Hx/FS Hx/Imm Hx Endocrine/Hematology History: Reports: Hx Anticoagulant Therapy Denies: Hx Diabetes Cardiovascular History: Reports: Hx Hypertension, Other Cardiovascular Problems/ Disorders - HX ARRYTHMIA- ABLATION 4.5 YEARS AGO- NO PROBLEMS SINCE Denies: Hx Pacemaker/ICD Musculoskeletal History: Denies: Hx Scoliosis Sensory History: Reports: Hx Cataracts - BILATERAL, Hx Contacts or Glasses - READING Denies: Hx Hearing Aid Opthamlomology History: Reports: Hx Cataracts - BILATERAL, Hx Contacts or Glasses - READING Neurological History: Reports: Hx CVA Denies: Hx Headaches, Other Neuro Impairments/Disorders - Surgical History Surgery Procedure, Year, and Place: to have a cardiac ablation Apr 2012; previous ablations; hernia; GB; appendectomy Hx Anesthesia Reactions: No - Immunization History Date of Tetanus Vaccine: ukn Date of Influenza Vaccine: ukn Immunizations Up to Date: Yes Infectious Disease History: No Infectious Disease History: Denies: Traveled Outside the [place] in Last 30 Days - Family History Known Family History: Positive: None - The pt denies any fhx. Negative: Cardiac Disease - Social History Alcohol Use: Weekly Alcohol Amount: 1-2 GLASSES PER WEEK Hx Substance Use: No Substance Use Type: Reports: None Hx Tobacco Use: No Smoking Status (MU): Never Smoked Tobacco Review of Systems - ROS Summary Review of Systems Summary: Home Medications Medication Instructions Recorded Confirmed Type Potassium Chlor TAB* [Klor Con 10 20 meq PO DAILY 02/10/12 01/14/19 History ER TAB*] Aspirin 81 mg CHEW TAB* [Aspirin 81 mg PO DAILY 04/27/15 01/14/19 History Low Dose TAB*] Ramipril CAP* [Altace CAP*] 2.5 mg PO DAILY 01/14/19 01/14/19 History Constitutional: Other - POSITIVE: decreased appetite Negative: Fever, Chills Positive: Abdominal Pain. Negative: Vomiting, Nausea Negative: other - NEGATIVE: urinary retention Neurological: Other - POSITIVE: unsteady gait All Other Systems Reviewed And Are Negative: Yes Physical Exam - Summary Physical Exam Summary: General: Well-developed, Well-nourished male. Patient appears shaky. Patient is not ill-appearing. HEENT: Normocephalic, Atraumatic. Eyes: Conjuctiva normal, PERRL. Ears: TMs within normal limits. Nares: (-) discharge, (-) erythema. Oropharynx: Clear, mucous membranes moist, (-) exudates. Neck: Soft, FROM, (-) lymphadenopathy, (-) thyromegaly, (-) JVD. Cardiovascular: Normal sinus rhythm, (-) murmur. Lungs: Clear to auscultation bilaterally (-) wheezes, (-) rales, (-) rhonchi. Abdomen: Soft, moderate suprapubic tenderness to palpation, non-distended, (-) organomegaly, normal bowel sounds. Back: (-) CVA tenderness Extremities: No edema. Skin: Warm, dry, (-) rash. Neuro: Alert and oriented x3, no focal deficits. Psychiatric: Mood normal, affect normal. Triage Information Reviewed: Yes Vital Signs On Initial Exam: Initial Vitals Temp Pulse Resp BP Pulse Ox 98.8 F 74 20 156/88 94 01/13/19 20:30 01/13/19 20:30 01/13/19 20:30 01/13/19 20:30 01/13/19 20:30 Vital Signs Reviewed: Yes - Shannan Coma Scale Best Eye Response: 4 - Spontaneous Best Motor Response: 6 - Obeys Commands Best Verbal Response: 5 - Oriented Coma Scale Total: 15 Diagnostics - Vital Signs Vital Signs Temp Pulse Resp BP Pulse Ox 01/13/19 20:30 98.8 F 74 20 156/88 94 - Laboratory Result Diagrams: 01/14/19 00:16 01/14/19 00:16 Lab Statement: Any lab studies that have been ordered have been reviewed, and results considered in the medical decision making process. - CT CT abdomen/pelvis CT Interpretation Completed By: Radiologist Summary of CT Findings: IMPRESSION: There is colonic diverticulosis without evidence for acute diverticulitis. Dr. Calix has reviewed this report. Brain CT Summary of CT Findings: Pending official radiology report. Re-Evaluation - Re-Evaluation First Eval Re-Evaluation Time: 03:39 Change: Unchanged Comment: Pt reports he is still in pain. Pt states he lives at home alone. He is requesting admission. Second Eval Re-Evaluation Time: 04:00 Comment: Bladder scan shows 45 CC. Abdominal Pain Male Course/Dx - Course Assessment/Plan: Pt is a 78 y/o male presenting to [facility] c/o worsening lower abdominal pain since 01/10/19. Patient reports he saw his PCP on 01/11/19 for this abd pain and was placed on Bactrim for a UTI. Since then he notes his abd pain has been worsening. Patient saw Dr. Tenorio, urologist, today and had a bradford catheter placed. Pt states he has emptied his bradford twice since being in the ED today and the last time was about 15 minutes ago at 2245. He notes he has had some back pain described as "muscle soreness" for the past 1 month. As of today, pt reports decreased appetite. On exam, pt is shaky but not ill appearing. Patient has moderate suprapubic tenderness to palpation. Lab work is unremarkable except for platelet count of 585, sodium 129. Abdomen/Pelvis CT shows there is colonic diverticulosis without evidence for acute diverticulitis. In the ED course the pt was given IV fluids, Toradol, Zofran, Rocephin, fentanyl. On re-evaluation pt is still c/o abd pain and is requesting admission. Bladder scan shows 45 cc. Discussed case with Dr. Yan , hospitalist, who will evaluate the pt. Dr. Yan accepts the patient for admission. Brain CT is pending at this time. - Diagnoses Provider Diagnoses: Gait disturbance - Provider Notifications Discussed Care Of Patient With: Yasmine Yan - hospitalist Time Discussed With Above Provider: 04:41 Instructed by Provider To: Other - Discussed with Dr. Yan, hospitalist, who will evaluate the pt. Discharge ED - Sign-Out/Discharge Documenting (check all that apply): Patient Departure - Admit to [facility] Patient Received Moderate/Deep Sedation with Procedure: No - Discharge Plan Condition: Stable Disposition: ADMITTED TO [facility] Referrals: Fernando Larios MD [Primary Care Provider] - - Billing Disposition and Condition Condition: STABLE Disposition: Admitted to [facility] - Attestation Statements Document Initiated by Winter: Yes Documenting Raymundoibalvin: Marcelle Patel Provider For Whom Winter is Documenting (Include Credential): Dr. Gianna Calix MD Scribe Attestation: Marcelle Bonilla scribed for Dr. Gianna Calix MD on 01/14/19 at 0615. Scribe Documentation Reviewed: Yes Provider Attestation: The documentation as recorded by the Marcelle burdick accurately reflects the service I personally performed and the decisions made by me, Dr. Gianna Calix MD Status of Scribe Document: Viewed
[2019-01-13] MEDS ORDERED: NS 0.9% 50 ML* 50 ML ONE (23:06)
[2019-01-14 00:35] LABS: ABS Basophils 0.1 10^3/ul (0-0.2); ABS Eosinophils 0.2 10^3/ul (0-0.6); ABS Lymphocytes 1.2 10^3/ul (1.0-4.8); ABS Monocytes 0.8 10^3/ul (0-0.8); ABS Neutrophils 6.6 10^3/ul (1.5-7.7); Eosinophil % 2.5 %; Hematocrit 45 % (42-52); Hemoglobin 15.2 g/dL (14.0-18.0); Lymphocyte % 12.9 %; Mean Corpuscular HGB Conc 34 g/dL (31-36); Mean Corpuscular Hemoglobin 31 pg (27-31); Mean Corpuscular Volume 93 fL (80-94); Mean Platelet Volume 7.3 fL (7.4-10.4); Platelet Count 585 10^3/uL (150-450); Red Blood Count 4.88 10^6 /uL (4.18-5.48); Red Cell Distribution Width 15 % (10-15)
[2019-01-14 00:47] LABS: Albumin 3.9 g/dL (3.2-5.2); Albumin/Globulin Ratio 1.7 (1-3); BUN/Creatinine Ratio 11.7 (8-20); Calcium 8.4 mg/dL (8.6-10.3); EGFR African American 84.7 (>60); Globulin 2.3 g/dL (2-4); Potassium 4.2 mmol/L (3.5-5.0); Total Bilirubin 0.5 mg/dL (0.2-1.0); Total Protein 6.2 g/dL (6.4-8.9)
[2019-01-14 01:15] LABS: Urine Appearance Clear; Urine Bacteria Absent (Absent); Urine Bilirubin Negative (Negative); Urine Blood 2+ (Negative); Urine Color Straw; Urine Glucose Negative (Negative); Urine Ketones Trace (Negative); Urine Nitrite Negative (Negative); Urine Protein Negative (Negative); Urine Red Blood Cell Trace(0-2/hpf) (Absent); Urine Specific Gravity 1.003 (1.010-1.030); Urine Urobilinogen Negative (Negative); Urine White Blood Cell 1+(6-10/hpf) (Absent)
[2019-01-14] MEDS ORDERED: Iohexol 300* (CONTRAST) 10 ML SDV IV ONE (01:36)
[2019-01-14] MEDS ORDERED: Eye Irrigation Solution 30 ML BOTTLE BOTH EYES ONE (02:36)
[2019-01-14] MEDS: fentaNYL* 50 MCG/ML 2 ML VIAL (100 MCG VIAL) IV SLOW PU PRN ×2 (02:45→08:21)
[2019-01-14] MEDS ORDERED: Morphine INJ* 2 MG/ML 1 ML SYRINGE (TWO MG - NEW SYRINGE VERSION) IV PRN ×2 (05:21→18:18)
[2019-01-14] MEDS: oxyCODONE/Acetamin 5/325 MG* TAB PO PRN ×2 (07:40→17:28)
[2019-01-14] MEDS: Enoxaparin(*) 40 MG/0.4 ML SYR SUBCUT SCH (07:42)
[2019-01-14] MEDS: Aspirin 81 mg CHEW TAB* 81 MG TAB.CHEW PO SCH (08:09)
[2019-01-14] MEDS: Potassium Chlor TAB* 10 MEQ TAB.ER PO SCH (08:09)
[2019-01-14] MEDS: Ramipril CAP* 2.5 MG PO SCH (08:09)
--- NOTE | 2019-01-14 08:57 | HP ---
CC: Dr. Fernando Larios * HISTORY AND PHYSICAL: DATE OF ADMISSION: 01/14/19 PRIMARY CARE PROVIDER: Dr. Fernando Larios. ATTENDING PHYSICIAN: Dr. Yasmine Yan.* (DICTATED BY ODALYS CELAYA NP) CHIEF COMPLAINT: Abdominal pain. HISTORY OF PRESENT ILLNESS: Mr. Soto is 78-year-old male with past medical history of atrial fibrillation and flutter, hypertension and CVA, who presented to the emergency room yesterday evening with complaints of abdominal pain. The patient reports that abdominal pain started on 01/10/19. There were no aggravating or alleviating factors. On 01/11/19, he saw his primary care provider because of this pain and was prescribed a course of Bactrim for a urinary tract infection. It is unclear if the patient had a positive UA at that time or if this was just based on symptoms. The patient did start taking the antibiotics, though did note worsening in pain. Yesterday, 01/13/19, the patient saw Dr. Tenorio. It sounds as though the patient was noted to have some urinary retention. He was not sure how much he was retaining, although Dr. Tenorio put in a Nash that has not resolved the abdominal pain. He also reports feeling quite weak and unsteady on his feet. He believes that this is recrudescence of his stroke symptom secondary to pain. He does note a decreased appetite. He describes the pain as 8/10, sharp and burning in the lower abdomen and suprapubic area. He did have a bowel movement on the morning of 01/13/19, which was normal. No fevers, no shortness of breath, no chest pain , no nausea or vomiting, no focal neurological deficits. In the emergency room, the patient had an abdomen and pelvis CT, which showed diverticulosis, though no evidence of diverticulitis. No acute process. His vitals were stable. Labs were mostly unremarkable. Because of the patient's continued pain, hospitalist service was asked to evaluate for admission. PAST MEDICAL HISTORY: 1. Atrial fibrillation/flutter, status post ablation and multiple cardioversions. 2. Hypertension. 3. CVA. 4. Obstructive sleep apnea, not on CPAP. PAST SURGICAL HISTORY: 1. Cholecystectomy. 2. Appendectomy. 3. Inguinal hernia repair. HOME MEDICATIONS: 1. Aspirin 81 mg p.o. daily. 2. Potassium chloride 20 mEq p.o. daily. 3. Ramipril 2.5 mg p.o. daily. ALLERGIES: No known drug allergy. FAMILY HISTORY: The patient's parents both of lung cancer. SOCIAL HISTORY: The patient denies any tobacco or recreational drug use. He reports 1 to 2 alcoholic drinks per week. He is retired and lives alone, though he does rent out a room to a college student. The patient's friend Campos Hammond will be his surrogate decision maker in the event he is unable to make his own decisions. REVIEW OF SYSTEMS: All 11-point review of systems was performed and all the pertinent positive and negative findings are in the HPI. All other systems are negative. PHYSICAL EXAMINATION GENERAL: Mr. Soto is a well-developed, well-nourished overweight white male lying in bed, in no acute distress. He appears his stated age. He is sleeping on my arrival to his room. VITAL SIGNS: Temp 98.9, heart rate 70, respiratory rate 18, oxygen saturation 91 % on room air, blood pressure 136/78. HEENT: Head is atraumatic, normocephalic. Visual dumont are grossly intact. Pupils are equal, round, and reactive to light and accommodation. Extraocular movements intact. Oral mucous membranes are moist. NECK: Thyroid not palpable. No lymphadenopathy. RESPIRATORY: Symmetrical chest expansion. No chest wall deformities. Lungs are clear to auscultation throughout. No rhonchi, wheezes, or rubs. CARDIOVASCULAR: Regular rate and rhythm. S1, S2 present. No murmurs, rubs, or gallops. ABDOMEN: Soft, tender throughout particularly to the lower quadrants and suprapubic area. Bowel sounds are normoactive. EXTREMITIES: Skin is warm and smooth bilaterally. No edema. Pedal pulses 2+ bilaterally. NEURO: Awake, alert, and oriented x4, though he is forgetful. Moves all extremities. DIAGNOSTIC STUDIES/LAB DATA: WBC 9.0, RBC 4.88, hemoglobin 15.2, hematocrit 45 , platelets 585. Sodium 129, potassium 4.2, chloride 99, carbon dioxide 23, BUN 12, creatinine 1.03, glucose 111, lactic acid 0.8. Urinalysis with trace ketones, 2+ blood, 2+ leukocyte esterase, and 1+ white blood cell. Abdomen pelvis CT reads as there is colonic diverticulosis without evidence for acute diverticulitis. ASSESSMENT AND PLAN: Mr. Soto is a 78-year-old male with past medical history of atrial fibrillation and flutter, hypertension and cerebrovascular accident, who presented to the emergency room with complaints of intractable abdomen pain. The patient will be admitted on observation for: 1. Intractable abdominal pain: There is no clear cause of this pain, although I suspect that the pain is related to urinary retention. It is unclear if the patient has had issues with urinary retention in the past, although he certainly was having some degree of urinary retention which prompted Dr. Tenorio to place a Nash in the office and I would hope that now that the bladder has been decompressed, pain will begin to dissipate. He did receive 1 dose of fentanyl in the emergency room without relief. Going forward, I have ordered Percocet and morphine to manage his pain. 2. Weakness: The patient reports generalized weakness secondary to pain. He is typically independent, but does not feel as though he would be able to ambulate even in his room at this point. I do not think this represents any acute neurological process, although the ED physician has ordered a brain CT, which is pending at this time. I have ordered physical therapy and occupational therapy evaluation. 3. Atrial fibrillation/flutter: He is in normal sinus rhythm. He is not any medication for his atrial fibrillation and does not take any anticoagulation per his choice. 4. Hypertension: The patient is normotensive at this point. The systolic pressure in the 130s. I will continue with ramipril. 5. History of cerebrovascular accident: The patient does not have any residual neurological deficits from his cerebrovascular accident. I will continue aspirin. 6. FEN: The patient does not require any fluid resuscitation or electrolyte repletion. I have ordered a heart-healthy diet. 7. Code status: The patient will be full code. 8. DVT prophylaxis: According to the DVT Risk Assessment, the patient scores a 4, putting him at high risk. I have ordered Lovenox. TIME SPENT: Approximately 50 minutes were spent on this admission; greater than half of that spent face to face with the patient obtaining my history, performing my physical examination and reviewing the plan of care. The case has been reviewed with my attending Dr. Yan who is in agreement with the plan of care. ODALYS CELAYA, AGENCY DEVELOPMENT MANAGER [id number]/[facility] #: [id number] [facility] MEDICAL CENTERManuel
[2019-01-14] MEDS ORDERED: HYDROmorphone INJ1* 1 MG/ML SYRINGE IV SLOW PU PRN (10:46)
--- NOTE | 2019-01-14 18:23 | PN ---
Progress Note - Progress Note Date of Service: 01/14/19 Note: Follow-up note: Patient admitted earlier this AM w/ abdominal pain, recent bladder catheter insertion. Pain nearly constant, had some relief from morphine. Dilaudid causes nausea, not helpful w/ pain. Selected Entries 01/14/19 16:03 Pulse Rate 57 Respiratory 20 Rate Blood Pressure 126/71 (mmHg) O2 Sat by Pulse 94 Oximetry PE: alert, anxious appearance Lungs: clear Heart; RRR, no murmur Abdo: soft, tender epigastric, +BS, no masses A/P: Abdo pain: discussed with Dr. Tenorio, not -related. Differential includes gastritis/ulcer, vs mesenteric ischemia Will have Doppler mesenteric, and consult with Dr. Winter.
[2019-01-15] MEDS: Carboxymethylcellulose/Glyceri 10 ML OPHTH.GEL lubricant eye gel BOTH EYES PRN ×3 (00:51→22:02)
[2019-01-15] MEDS ORDERED: Famotidine IV* 10 MG/ML 2 ML (20 mg) IV SLOW PU ONE (01:17)
[2019-01-15] MEDS: Acetaminophen TAB* 325 MG PO PRN ×3 (01:46→22:02)
[2019-01-15] MEDS: Enoxaparin(*) 40 MG/0.4 ML SYR SUBCUT SCH (05:28)
[2019-01-15 07:09] LABS: ABS Basophils 0.1 10^3/ul (0-0.2); ABS Eosinophils 0.2 10^3/ul (0-0.6); ABS Lymphocytes 0.9 10^3/ul (1.0-4.8); ABS Monocytes 0.8 10^3/ul (0-0.8); ABS Neutrophils 6.7 10^3/ul (1.5-7.7); Eosinophil % 2.1 %; Hematocrit 45 % (42-52); Hemoglobin 15.3 g/dL (14.0-18.0); Lymphocyte % 10.6 %; Mean Corpuscular HGB Conc 34 g/dL (31-36); Mean Corpuscular Hemoglobin 31 pg (27-31); Mean Corpuscular Volume 92 fL (80-94); Mean Platelet Volume 7.3 fL (7.4-10.4); Platelet Count 595 10^3/uL (150-450); Red Cell Distribution Width 15 % (10-15); White Blood Count 8.6 10^3/uL (3.5-10.8)
[2019-01-15 07:24] LABS: BUN/Creatinine Ratio 10.5 (8-20); Calcium 8.8 mg/dL (8.6-10.3); EGFR African American 82.9 (>60); EGFR Non-African American 68.5 (>60); Potassium 4.4 mmol/L (3.5-5.0)
[2019-01-15] MEDS: Ramipril CAP* 2.5 MG PO SCH (08:12)
[2019-01-15] MEDS: Potassium Chlor TAB* 10 MEQ TAB.ER PO SCH (08:13)
[2019-01-15] MEDS: Aspirin 81 mg CHEW TAB* 81 MG TAB.CHEW PO SCH (08:13)
[2019-01-15 11:52] LABS: C Reactive Protein 11.14 mg/L (<8.01)
--- NOTE | 2019-01-15 13:56 | PN ---
Subjective Date of Service: 01/15/19 Interval History: Patient feels maybe 50% better. He has no nausea, diarrhea. He also feels weak, can walk w/ walker and assist. He has an appetite. He is concerned a UTI could be missed, because he was on antibiotic when urine collected here and in Dr. Tenorio's office. Family History: Unchanged from Admission Social History: Unchanged from Admission Past Medical History: Unchanged from Admission Objective Active Medications: Acetaminophen (Tylenol Tab*) 650 mg PO Q4H PRN PRN Reason: MILD PAIN or TEMP > 100.4 Last Admin: 01/15/19 08:13 Dose: 650 mg Aspirin (Aspirin 81 Mg Chew Tab*) 81 mg PO DAILY [facility] Last Admin: 01/15/19 08:13 Dose: 81 mg Carboxymethylcellulose/Glycerin (Refresh Optive Gel Eye Gel) 1 applic BOTH EYES TID PRN PRN Reason: DRY EYE Last Admin: 01/15/19 00:51 Dose: 1 drop Enoxaparin Sodium (Lovenox(*)) 40 mg SUBCUT Q24H [facility] Last Admin: 01/15/19 05:28 Dose: 40 mg Morphine Sulfate (Morphine Inj (Syringe))*) 2 mg IV Q3H PRN PRN Reason: PAIN - SEVERE Last Admin: 01/14/19 20:58 Dose: 2 mg Oxycodone/Acetaminophen (Percocet 5/325 Tab*) 1 tab PO Q4H PRN PRN Reason: PAIN - MODERATE Last Admin: 01/14/19 17:28 Dose: 1 tab Potassium Chloride (Klor Con Er Tab*) 20 meq PO DAILY [facility] Last Admin: 01/15/19 08:13 Dose: 20 meq Ramipril (Altace Cap*) 2.5 mg PO DAILY [facility] Last Admin: 01/15/19 08:12 Dose: 2.5 mg Vital Signs - 8 hr 01/15/19 01/15/19 07:18 11:20 Temperature 36.9 C 36.8 C Pulse Rate 66 96 Respiratory 16 16 Rate Blood Pressure 125/61 151/77 (mmHg) O2 Sat by Pulse 96 93 Oximetry Oxygen Devices in Use Now: None Appearance: alert, no distress Eyes: No Scleral Icterus Ears/Nose/Mouth/Throat: NL Teeth, Lips, Gums Neck: NL Appearance and Movements; NL JVP Respiratory: Symmetrical Chest Expansion and Respiratory Effort Cardiovascular: NL Sounds; No Murmurs; No JVD, RRR, - Abdominal: No Hepatosplenomegaly, - - +BS, subjective tenderness rosa-umbilical Lymphatic: No Cervical Adenopathy Lines/Tubes/Other Access: Clean, Dry and Intact Peripheral IV Nutrition: Taking PO's Result Diagrams: 01/15/19 06:57 01/15/19 06:57 Microbiology and Other Data: Microbiology 01/13/19 00:59 Urine Culture - Final Urine No Growth (<1,000 CFU/mL) 01/14/19 00:16 Aerobic Blood Culture - Preliminary Blood Venous No Growth Day 1 Anaerobic Blood Culture - Preliminary No Growth Day 1 01/14/19 00:16 Aerobic Blood Culture - Preliminary Blood Venous No Growth Day 1 Anaerobic Blood Culture - Preliminary No Growth Day 1 Assess/Plan/Problems-Billing Assessment: 78 year old man w/ recent urinary catheter insertion due to retention, admitted with diffuse abdominal pain unknown etiology - Patient Problems (1) Abdominal pain Current Visit: Yes Status: Acute Priority: High Code(s): R10.9 - UNSPECIFIED ABDOMINAL PAIN SNOMED Code(s): 65797273 Comment: -Differential includes gastritis, cardio-embolic disease to intestinal vascular bed, mesenteric adenitis, or atypical pain from cystitis -Discussed extensively with Dr. Winter -Will assess EKG, telemetry, since he has h/o a-fib and is not anticoagulated. (2) UTI (urinary tract infection) Current Visit: Yes Status: Acute Priority: Medium Comment: -Has been off antibiotics since admission -Will check UA, and try to obtain culture data from Dr. Larios (3) Paroxysmal atrial fibrillation Current Visit: Yes Status: Acute Priority: Medium Code(s): I48.0 - PAROXYSMAL ATRIAL FIBRILLATION SNOMED Code(s): 606352568 Comment: -Checking EKG to assure NSR -will monitor on telemetry Status and Disposition: will make inpatient due to duration, further testing needed
--- NOTE | 2019-01-15 13:59 | CONS ---
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 This morning on my entering the room he states "for the first time I am beginning to feel better." Yesterday, his ongoing symptoms were unexplained and this had led to consideration of further tests and consults including reinterpretation of the CT scan for vascular problems. He states that in general he has not been having any gastrointestinal problems, taking psyllium steadily and with that he has a regular bowel pattern every morning and that has not been a problem. Regular bowel movements appearing normal have continued throughout this current illness. He had his regular physical exam with Dr Larios on 01/10/19 and said everything was fine. The next morning; however, he began feeling horrible with burning lower abdominal distress and motions with both hands well below the umbilicus. Later, he will admit that the burning correlated with urination and he was having trouble urinating. He saw his primary office the very day after his physical and was started on Bactrim. He was referred to Urology and had a catheter placed during the day on 01/13/19. He was feeling worse in the evening and went to the emergency room. He was afebrile. His white count was normal at 9.0. CT scan showed no acute disease. There was diverticulosis, but no diverticulitis. He continued to have distress during the day yesterday. An addendum to his CT scan showed a very healthy vascular supply to the gut. He states he has not been treated ever for any stomach acid problems or peptic conditions recognizing many [id number] remedies, which he does not use or need. He has had colonoscopies for screening, most recently in April 2015 where there was a small tubular adenoma in the rectum. There was mild prather colonic diverticulosis without much scarring then and at previous screening exams in 2007 and 2000. PAST MEDICAL HISTORY: 1. History of atrial fibrillation - status post ablation x4 (Dr Harjit Ayers) and he is followed carefully by Dr. Osborn, being on low dose aspirin only. 2. Hypertension. 3. Diverticulosis - prather colonic without any treatment for diverticulitis to my knowledge. 4. Colon polyp - rectal tubular adenoma - Apr 2015 5. Status post hemorrhoidal banding, 2011. 6. Right hemidiaphragm paralysis - listed in 2003 and he saw a local supply chain procurement manager, Dr. Daigle in consult. 7. Appendectomy in 1953. 8. Cholecystectomy in 1994. 9. Inguinal hernia repair. 10. 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 He is a lifetime nonsmoker. REVIEW OF SYSTEMS: He had a right eye infection treated with "supercharged penicillin" (?Augmentin) that ended about 10 days ago. He is a little bit vague on those details. There is no history of seizure. He has had neurologic consults with Dr. Whiteside last in 2008. No history of acid indigestion or vomiting or restrictive diet. He has been obese. No history of hepatitis, jaundice or abnormal LFTs. No history of recent fracture. PHYSICAL EXAM: He is a pleasant, interactive and smiling man in a chair having just had two-thirds of a clear liquid diet. He is afebrile, 98.2. Blood pressure 151/77. HEENT exam is unremarkable. He is anicteric. Mucous membranes are normal. His lungs are clear. Heart sounds are irregular, but normal sounding. The abdomen is obese, symmetric with old appendectomy scar. He is tender throughout, but to very superficial palpation and it seems unexpected and out of proportion to his smiling and saying he has an interest in eating. Extremities show no edema. Neurologic is nonfocal with normal cranial nerves and movement of all four extremities. LABS: Hemoglobin 15.3, hematocrit 45, white count 8.6, platelets 595,000. LFTs normal. Albumin 3.9. Last iron panel and B12 from 2011 showed ferritin 182, B12 of 758. Urinalysis from 01/13/19 showed specific gravity 1.003, 2+ blood, 2+ esterase , absent bacteria, negative nitrite. IMPRESSION: At this time, the patient is improving and his stated interest in food certainly overrides concerns about abdominal tenderness on exam which seems atypical. He is not on antibiotics. The overall picture is not quite clear, though there was no evidence of any gastrointestinal inflammatory process or obstruction and no indication right now for further studies on the GI tract. His thromboembolic risk is elevated the question is how much? Still he does not seem sick enough for a clot to the gut. Agree with advancing his diet as is being planned and follow his course. It seems most likely that the functioning of his urinary tract will control his reported symptom level. [id number]/[facility] #: [id number] DONNA
[2019-01-15 18:54] LABS: Urine Appearance Clear; Urine Bacteria 1+ (Absent); Urine Bilirubin Negative (Negative); Urine Blood 2+ (Negative); Urine Color Straw; Urine Glucose Negative (Negative); Urine Ketones Negative (Negative); Urine Nitrite Negative (Negative); Urine Protein Negative (Negative); Urine Red Blood Cell Trace(0-2/hpf) (Absent); Urine Specific Gravity 1.002 (1.010-1.030); Urine Urobilinogen Negative (Negative); Urine White Blood Cell Trace(0-5/hpf) (Absent)
[2019-01-16] MEDS: Carboxymethylcellulose/Glyceri 10 ML OPHTH.GEL lubricant eye gel BOTH EYES PRN ×2 (03:57→09:32)
[2019-01-16] MEDS: Enoxaparin(*) 40 MG/0.4 ML SYR SUBCUT SCH (05:35)
[2019-01-16] MEDS: Potassium Chlor TAB* 10 MEQ TAB.ER PO SCH (09:31)
[2019-01-16] MEDS: Acetaminophen TAB* 325 MG PO PRN (09:32)
[2019-01-16] MEDS: Ramipril CAP* 2.5 MG PO SCH (09:32)
[2019-01-16] MEDS: Aspirin 81 mg CHEW TAB* 81 MG TAB.CHEW PO SCH (09:35)
[2019-01-16 12:02] VITALS: BP 123/61
[2019-01-16] MEDS ORDERED: Tamsulosin CAP* 0.4 MG PO SCH (21:00)
--- NOTE | 2019-01-16 23:13 | DS ---
CC: Dr. Larios; Dr. Tenorio * DISCHARGE SUMMARY: DATE OF ADMISSION: 01/14/19 DATE OF DISCHARGE: 01/16/19 PRIMARY DIAGNOSES: Abdominal pain, unknown etiology. SECONDARY DIAGNOSES: 1. Recent history of parostitis and bladder outlet obstruction, treated with Nash catheter. 2. Paroxysmal atrial fibrillation. 3. History of stroke with right-sided weakness. 4. Hypertension. 5. Obstructive sleep apnea, they are not currently treated with CPAP. 6. Blepharitis, right eye. MEDICATIONS ON DISCHARGE: 1. Aspirin 81 mg p.o. daily. 2. Potassium chloride 20 mEq p.o. daily. 3. Ramipril 2.5 mg p.o. daily. 4. Acetaminophen 650 mg p.o. q.4 hours p.r.n. 5. Refresh optho gel 1 application both eyes, 3 times a day for dry eyes. 6. Tamsulosin 0.4 mg p.o. q.p.m. 7. Tobramycin 0.3 mg topical solution, 1 drop right eye q.4 hours. CONSULTATIONS: Dr. Winter of Gastroenterology. PROCEDURES: None. HOSPITAL COURSE: Mr. Soto was admitted to the emergency department with severe abdominal pain without any associated fever, nausea, vomiting, or diarrhea. He in the week prior to admission had been to Dr. Tenorio's office and had excessive post void residual, which led to a fixing of a Nash catheter. Routine records from visit earlier the week with Dr. Larios, also where he was diagnosed with prostatitis, but the urine culture was negative. He was treated during the last week with Bactrim for prostatitis and this was stopped on admission due to lack of cultures and lack of clarity of other diagnosis. Please see the history and physical for full details of the presentation. In short, the patient had negative abdominopelvic CT as well as a negative CT of the brain. Initial white count was 9.0, platelets were 585. Initial sodium was 129, which joanna to 130 on the next day. Lactic acid was normal, liver enzymes were normal. Urinalysis showed specific gravity of 1.003, trace ketones , 2+ blood, 1+ leukocyte esterase, and urine culture was negative. Urinalysis was repeated on 01/15/19 and it showed only 2+ blood and 1+ bacteria. Urine culture is pending on discharge. The patient's abdominal pain was evaluated by Dr. Winter. He saw no associated symptoms and did not advise endoscopy or colonoscopy. We discussed possibilities including pain from prostatitis as well as mesenteric adenitis, and cardioembolic disease to the celiac trunk. The CT of the abdomen was re- reviewed by Radiology and they found patent celiac artery and superior mesenteric and inferior mesenteric arteries. We had ordered a Doppler of those arteries, but this was deferred to outpatient if necessary. The patient also presented with weakness and trouble walking, which led to his CAT scan. He, during the 2 days of hospital, progressed to walking well with a walker. He had a physical therapy evaluation as well. No clear etiology was found for his trouble walking, although he has history of old stroke, which might be masked when there is an infectious process going on. DISPOSITION: To home. STATUS: Inpatient. ACTIVITY: As tolerated. Walks with walker. CONDITION: Stable. DIET: Regular. FOLLOWUP: Follow up with Dr. Tenorio as planned on 01/19/19 regarding a voiding trial with Nash catheter. He shall also see Dr. Larios within 1 week. [id number]/[facility] #: [id number] MTDD
== END 2019-01-16 15:30 | disposition home or self-care (01) | DRG 392 ==
LOC: ED 20:25 → MEDTELE 01-14 05:21 → OBSVTOIN 01-14 14:10 → INTOOBSV 01-14 14:10 → OBSVTOIN 01-15 14:10
PROVIDERS: ADMIT Hospitalist; ATTEND Internal Medicine
DX: R10.9 Unspecified abdominal pain (principal); N39.0 Urinary tract infection, site not specified; K57.90 Diverticulosis of intestine, part unspecified, without perforation or abscess without bleeding; I10 Essential (primary) hypertension; D12.6 Benign neoplasm of colon, unspecified; I48.0 Paroxysmal atrial fibrillation; H26.9 Unspecified cataract; G47.33 Obstructive sleep apnea (adult) (pediatric); R53.1 Weakness; H01.003 Unspecified blepharitis right eye, unspecified eyelid; Z90.49 Acquired absence of other specified parts of digestive tract; Z86.73 Personal history of transient ischemic attack (TIA), and cerebral infarction without residual deficits; Z72.89 Other problems related to lifestyle; Z80.1 Family history of malignant neoplasm of trachea, bronchus and lung; Z79.82 Long term (current) use of aspirin
CPT/HCPCS: 36415; 70450; 74177; 80048; 80053; 81003; 81015; 82272; 83605; 85025; 86140; 87040; 87086; 93005; 96365; 96372; 96375; 96376; 99285; A9270-GY; G0378; G8978-GP-CK; G8979-GP-CI; G8987-GO-CJ; G8988-GO-CI; J1170; J1650; J1885; J2270; J2405; J3010; Q9967

== ENCOUNTER 2019-01-18 10:59 | Emergency (ER) | payer MEDICARE, BC ==
--- OUTSIDE RECORDS SUMMARY | 2019-01-18 11:15 | XMS REPORT | Continuity of Care Document ---
:1940 External Reference #:[id number] Author Name Lisa Haley M.D. (transmitted by agent of provider Nellie Morris) Address [address] [address] Care Team Providers Name Role Phone Fernando Larios MD - Family Medicine Care Team Information Classified Advertising Manager [phone] Amadou Foreman MD - Clinical Care Team Information Classified Advertising Manager [phone] Cardiac Electrophysiology Problems Active Problems Provider Date Benign essential hypertension Jensen Osborn M.D. Onset: 02/07/2011 Atrial flutter Jensen Osborn M.D. Onset: 08/11/2011 Palpitations Jensen Osborn M.D. Onset: 08/11/2011 Morbid obesity Jensen Osborn M.D. Onset: 08/11/2011 Atrial fibrillation Jensen Osborn M.D. Onset: 08/11/2011 Electrocardiogram abnormal Jensen Osborn M.D. Onset: 01/05/2013 Social History Type Date Description Comments Sex Unknown ETOH Use Consumes 1 glass of wine per week Tobacco Use Start: Unknown Patient has never smoked Recreational Drug Use Denies Drug Use Smoking Status Reviewed: 06/16/18 Patient has never smoked Exercise Type/Frequency Exercises regularly Walks 2-3 miles daily Allergies, Adverse Reactions, Alerts Active Allergies Reaction Severity Comments Date Cardizem CD fatigue 07/25/2004 betapace fatigue 07/25/2004 Altace sore throat.on higher 10/22/2006 dose Cozaar ?depression 08/25/2007 Lopressor depression 05/22/2010 Multaq gi upset 10/10/2010 Flecanide fatigue 10/24/2011 Tikosyn transient QTc 11/27/2011 prolongation. Inactive Allergies NKDA feels washed out on beta blockers 07/07/2003 Medications Active Medications SIG Qnty Indications Ordering Provider Date Ramipril 1 by mouth every 90caps Jensen Calzada 05/11/2016 2.5mg Capsules day Fernanda Osborn Aspir-81 1 po qd 100tabs Jensen Calzada 01/05/2013 [address] Potassium Chloride ER 1 by mouth every 90tabs Jensen Calzada 02/17/2012 day Fernanda Osborn 20Meq Tablets ER Cardizem 1 by mouth every 60tabs Lina Chang, 10/10/2010 30mg Tablets day as needed N.P. Immunizations Description No Information Available Vital Signs Date Vital Result Comment 06/16/2018 9:39am Height 69 inches 5'9" Weight 231.38 lb with shoes Heart Rate 78 /min BP Systolic Sitting 118 mmHg BP Diastolic Sitting 80 mmHg BP Systolic Standing 126 mmHg BP Diastolic Standing 80 mmHg BMI (Body Mass Index) 34.2 kg/m2 Ejection Fraction 55-60% 06/07/18 05/11/2018 9:23am Height 69 inches 5'9" Weight 232.25 lb with shoes Heart Rate 78 /min BP Systolic Sitting 136 mmHg BP Diastolic Sitting 88 mmHg BMI (Body Mass Index) 34.3 kg/m2 Ejection Fraction 60-65% echo 05/06/17 Results Description No Information Available Procedures Description No Information Available Medical Devices Description No Information Available Encounters Description No Information Available Assessments Description No Information Available Plan of Treatment 06/16/2018 - Lina Chang, N.P.I48.0 Paroxysmal atrial fibrillationFollow up: 6 mo JFM OV 2mo SaraRecommendations:OK to take cardizem 30mg PRN for sustained palpitations I'll ask Anurag about having PRN sotalol.I10 Essential (primary) xcnkfgxbladgZ04.1 Atrial premature snubenbjwsslkuV04.9 Sleep disorder, unspecified Functional Status Description No Information Available Mental Status Description No Information Available Referrals Description No Information Available
[2019-01-18] MEDS ORDERED: Ondansetron INJ* 2 MG/ML VIAL IV ONE (12:42)
[2019-01-18] MEDS ORDERED: Famotidine IV* 10 MG/ML 2 ML (20 mg) IV SLOW PU ONE (12:42)
[2019-01-18] MEDS ORDERED: Lactated Ringers 1000 ML Bag* 1,000 ML IV ONE (13:00)
--- NOTE | 2019-01-18 13:17 | ED ---
Abdominal Pain/Male - HPI Summary HPI Summary: This pt is a 78 y/o male presenting to [facility] c/o lower abd pain. Pt was recently admitted for 4 days for abd pain and was discharged home 2 days ago. Pt reports his lower abdominal pain has increased and can't take care of himself at home secondary to poor balance. He notes he barely got any sleep last night secondary to pain, which he describes as burning pain in his lower abdomen. He states he spoke with his PCP, Dr. Larios, last night and he was concerned there was no diagnosis. Denies chest pain, SOB, headache, change in vision or hearing, weakness in arms or legs. Pt notes his balance had been off prior to his admission 4 days ago and notes he started using his walker (after not having to use it for a decade) 6 days ago secondary to pain. Pt has hx of CVA and notes Dr. Whiteside, his neurologist, told him that for the rest of his life when pt gets "sick or tired" he would have balance issues. Pt states his catheter was placed by Dr. Tenorio on 01/13/19 in his office because pt was not fully voiding. Pt reports burning with urination currently. - History of Current Complaint Chief Complaint: EDAbdPain Stated Complaint: ABD PAIN PER PT Time Seen by Provider: 01/18/19 12:39 Hx Obtained From: Patient Onset/Duration: Lasting Days, Still Present Timing: Lasting Days Severity Currently: Moderate Pain Intensity: 6 Pain Scale Used: 0-10 Numeric Location: Other - Lower abdomen Radiates: No Character: Burning Aggravating Factor(s): Nothing Alleviating Factor(s): Nothing Associated Signs And Symptoms: Negative: Fever, Chest Pain - Allergies/Home Medications Allergies/Adverse Reactions: Allergies Allergy/AdvReac Type Severity Reaction Status Date / Time No Known Allergies Allergy Verified 01/18/19 11:13 PMH/Surg Hx/FS Hx/Imm Hx Endocrine/Hematology History: Reports: Hx Anticoagulant Therapy - Apirin Denies: Hx Diabetes Cardiovascular History: Reports: Hx Hypertension, Other Cardiovascular Problems/ Disorders - HX ARRYTHMIA- ABLATION 4.5 YEARS AGO- NO PROBLEMS SINCE Denies: Hx Pacemaker/ICD Respiratory History: Reports: Hx Sleep Apnea Musculoskeletal History: Reports: Hx Arthritis Denies: Hx Scoliosis Sensory History: Reports: Hx Cataracts - BILATERAL, Hx Contacts or Glasses - Reading Denies: Hx Hearing Aid Opthamlomology History: Reports: Hx Cataracts - BILATERAL, Hx Contacts or Glasses - Reading Neurological History: Reports: Hx CVA Denies: Hx Headaches, Hx Seizures, Other Neuro Impairments/Disorders - Surgical History Surgery Procedure, Year, and Place: to have a cardiac ablation Apr 2012; previous ablations; hernia; GB; appendectomy Hx Anesthesia Reactions: No - Immunization History Date of Tetanus Vaccine: [facility] Date of Influenza Vaccine: 12/09/2018 Immunizations Up to Date: Yes Infectious Disease History: No Infectious Disease History: Denies: Traveled Outside the [place] in Last 30 Days - Family History Known Family History: Positive: None - Pt denies any Negative: Cardiac Disease - Social History Alcohol Use: Weekly Alcohol Amount: 1-2 GLASSES PER WEEK Hx Substance Use: No Substance Use Type: Reports: None Hx Tobacco Use: No Smoking Status (MU): Never Smoked Tobacco Review of Systems Negative: Fever Negative: Other - NEGATIVE: change in vision Negative: Other - NEGATIVE: change in hearing Negative: Chest Pain Negative: Shortness Of Breath Positive: Abdominal Pain Positive: burning Neurological: Other - POSITIVE: balance off Negative: Headache All Other Systems Reviewed And Are Negative: Yes Physical Exam - Summary Physical Exam Summary: Constitutional: Well-developed, Well-nourished, Alert. (-) Distressed Skin: Warm, Dry HENT: Normocephalic; Atraumatic Eyes: Conjunctiva normal Neck: Musculoskeletal ROM normal neck. (-) JVD, (-) Stridor, (-) Tracheal deviation Cardio: Rhythm regular, rate normal, Heart sounds normal; Intact distal pulses; The pedal pulses are 2+ and symmetric. Radial pulses are 2+ and symmetric. Pulmonary/Chest wall: Effort normal. (-) Respiratory distress, (-) Wheezes, (-) Rales Abd: Soft, No suprapubic tenderness, (-) Distension, (-) Guarding, (-) Rebound : Bradford in place. Circumcised. No discharge or bleeding from urethral meatus. There is discharge and odor coming from his pants possibly from leaking around catheter. Musculoskeletal: No edema. Neuro: Alert, Oriented x3 Psych: Patient is anxious about me hurting him during exam, but as soon as I distract him patient is fine. Triage Information Reviewed: Yes Vital Signs On Initial Exam: Initial Vitals Temp Pulse Resp BP Pulse Ox 98.0 F 86 18 140/84 96 01/18/19 11:04 01/18/19 11:04 01/18/19 11:04 01/18/19 11:04 01/18/19 11:04 Vital Signs Reviewed: Yes Procedures - Sedation Patient Received Moderate/Deep Sedation with Procedure: No Diagnostics - Vital Signs Vital Signs Temp Pulse Resp BP Pulse Ox 01/18/19 11:04 98.0 F 86 18 140/84 96 - Laboratory Lab Results: Lab Results 01/18/19 Range/Units 12:05 Parasite Exam Pending Result Diagrams: 01/18/19 13:44 01/18/19 13:44 Lab Statement: Any lab studies that have been ordered have been reviewed, and results considered in the medical decision making process. Re-Evaluation - Re-Evaluation First Eval Re-Evaluation Time: 14:48 Change: Improved Comment: Reviewed resuls with pt. Pt notes he is drinking a lot of cups of water a day. He will be discharged home with follow up from his PCP. Abdominal Pain Male Course/Dx - Course Assessment/Plan: Pt is a 78 y/o male presenting to [facility] c/o lower abd pain. Pt was recently admitted for 4 days for abd pain and was discharged home 2 days ago. Pt reports his lower abdominal pain has increased and can't take care of himself at home secondary to poor balance. He notes he barely got any sleep last night secondary to pain, which he describes as burning pain in his lower abdomen. Pt also c/o burning with urination. Pt has bradford in place. In the ED course the pt received IV fluids, Pepcid, and Zofran. Patient has no white count, sodium is 129 [address] [place] [address] he lives. His sodium was 130 and 131 when he was admitted and there is no change today. Glucose is normal. Creatinine is normal. Urine specific gravity is 1.002 and I suspect he is drinking too much water and needs fluid restriction per day. UA shows 3+ blood, trace leukocytes , no bacteria, no nitrates, no WBC. Stool specimen is brown, formed and soft pasty. Stools studies were negative. No signs of infection. CT abdomen/pelvis from 01/14/19 shows diverticulosis without diverticulitis. Pt has no LLQ pain, no fever, no chills, no tachycardia and I have no reason he has suddenly developed diverticulitis. Furthermore diverticulosis should not be attributing to his abd pain. During pt's last admission he had a GI consult and had no inflammatory process or obstrution found. The chances of ischemic colitis is also negative because his lactic acid is normal. I reviewed results with pt and importance of following up with his PCP regarding sodium level. - Diagnoses Provider Diagnoses: Abdominal pain Discharge ED - Sign-Out/Discharge Documenting (check all that apply): Patient Departure - Discharge home - Discharge Plan Condition: Good Disposition: HOME Patient Education Materials: Abdominal Pain (ED) Referrals: Fernando Larios MD [Primary Care Provider] - - Billing Disposition and Condition Condition: GOOD Disposition: Home - Attestation Statements Document Initiated by Winter: Yes Documenting Scribe: Marcelle Patel Provider For Whom Winter is Documenting (Include Credential): Amadou Brown MD Scribe Attestation: Marcelle Bonilla, scribed for Amadou Brown MD on 01/31/19 at 0756. Scribe Documentation Reviewed: Yes Provider Attestation: The documentation as recorded by the Marcelle burdick accurately reflects the service I personally performed and the decisions made by me, Amadou Brown MD Status of Scribalvin Document: Viewed
[2019-01-18 13:56] LABS: ABS Basophils 0.1 10^3/ul (0-0.2); ABS Eosinophils 0.2 10^3/ul (0-0.6); ABS Lymphocytes 0.9 10^3/ul (1.0-4.8); ABS Monocytes 0.7 10^3/ul (0-0.8); ABS Neutrophils 5.8 10^3/ul (1.5-7.7); Eosinophil % 2.7 %; Hematocrit 46 % (42-52); Hemoglobin 15.4 g/dL (14.0-18.0); Lymphocyte % 11.8 %; Mean Corpuscular HGB Conc 33 g/dL (31-36); Mean Corpuscular Hemoglobin 31 pg (27-31); Mean Corpuscular Volume 92 fL (80-94); Mean Platelet Volume 7.4 fL (7.4-10.4); Nucleated Red Blood Cells % 0.1; Platelet Count 676 10^3/uL (150-450); Red Blood Count 5.02 10^6 /uL (4.18-5.48); Red Cell Distribution Width 15 % (10-15); White Blood Count 7.7 10^3/uL (3.5-10.8)
[2019-01-18 14:01] LABS: Urine Appearance Clear; Urine Bacteria Absent (Absent); Urine Bilirubin Negative (Negative); Urine Blood 3+ (Negative); Urine Color Straw; Urine Glucose Negative (Negative); Urine Ketones Negative (Negative); Urine Nitrite Negative (Negative); Urine Protein Negative (Negative); Urine Red Blood Cell Trace(0-2/hpf) (Absent); Urine Specific Gravity 1.002 (1.010-1.030); Urine Urobilinogen Negative (Negative); Urine White Blood Cell Trace(0-5/hpf) (Absent)
[2019-01-18 14:16] LABS: Albumin 3.9 g/dL (3.2-5.2); Albumin/Globulin Ratio 1.6 (1-3); BUN/Creatinine Ratio 13.9 (8-20); EGFR African American 115.1 (>60); EGFR Non-African American 95.1 (>60); Globulin 2.5 g/dL (2-4); Indirect Bilirubin 0.3 mg/dL (0.3-1.0); Magnesium 1.8 mg/dL (1.9-2.7); Potassium 4.7 mmol/L (3.5-5.0); Total Bilirubin 0.4 mg/dL (0.2-1.0); Total Protein 6.4 g/dL (6.4-8.9)
[2019-01-18 16:06] VITALS: BP 153/85
== END 2019-01-18 16:01 | disposition home or self-care (01) ==
LOC: ED 10:59
DX: R10.30 Lower abdominal pain, unspecified (principal); Z79.82 Long term (current) use of aspirin; I10 Essential (primary) hypertension; R30.0 Dysuria; Z86.73 Personal history of transient ischemic attack (TIA), and cerebral infarction without residual deficits
CPT/HCPCS: 36415; 80048; 80076; 81003; 81015; 83605; 83690; 83735; 85025; 87045; 87046; 87077; 87086; 87177; 87209; 87328; 87329; 87899; 96361; 96365; 99283; J2405

== ENCOUNTER 2019-06-01 08:35 | Emergency (ER) | payer MEDICARE, BC ==
--- OUTSIDE RECORDS SUMMARY | 2019-06-01 08:52 | XMS REPORT | Continuity of Care Document ---
:1940 External Reference #:[id number] Author Name Lizeth Tere, [facility] Address [address] [place] [address] Care Team Providers Name Role Phone Amadou Bower MD - Surgery Care Team Information Compliance Aide [phone] Jensen Osborn MD - Cardiovascular Care Team Information Compliance Aide Disease Amadou Foreman - Cardiovascular Disease Care Team Information Compliance Aide Problems Active Problems Provider Date Benign essential hypertension Fernando Larios M.D. 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 Onset: obstruction Cerebrovascular disease Fernando Larios M.D. Onset: 04/04/2013 Actinic keratosis Fernando Larios M.D. Onset: 01/03/2019 Acute pharyngitis Fernando Larios M.D. Onset: 02/19/2019 Inactive Problems Chalazion Fernando Larios M.D. Onset: 01/03/2019 Inactive: 01/03/2019 Conjunctivitis Fernando Larios M.D. Onset: 01/03/2019 Inactive: 01/03/2019 Adult health examination Fernando Larios M.D. Onset: 01/03/2019 Inactive: 01/03/2019 Acute prostatitis Fernando Larios M.D. Onset: 01/11/2019 Inactive: 02/01/2019 Diarrhea Fernando Larios M.D. Onset: 01/17/2019 Inactive: 02/01/2019 Social History Type Date Description Comments Sex Unknown Tobacco Use Start: Unknown Never Smoked Cigarettes ETOH Use Rarely consumes alcohol Tobacco Use Start: Unknown Patient has never smoked Smoking Status Reviewed: 02/23/19 Patient has never smoked Allergies, Adverse Reactions, Alerts Description No Known Drug Allergies Medications Active Medications SIG Qnty Indications Ordering Provider Date Ketoconazole apply to 60gm B37.2 Lizeth Carranza, 03/26/2019 2% Cream affected area STORE HAND groin twice a day Diazepam 1 by mouth four 90tabs Fernando Larios, 06/21/2018 2mg Tablets times a day as M.D. needed Ramipril Take 1 Capsule 90caps Fernando Larios, 01/16/2017 2.5mg By Mouth Once M.D. Capsules Daily Baby Aspirin 1 po qd Family [facility]04[facility]2013 [facility] Vitamin B-12 CR 1 po qd 100tabs Fernando Larios, 08/04/2011 M.D. 1000mcg Tablets ER Potassium Chloride take 1 tablet by 90tabs Fernando Larios, 06/10/2010 Leah ER mouth once daily M.D. 20Meq Tablets ER Vitamin D-3 1 po qd 30tabs Unknown 4000Unit Tablets History Medications Cipro 1 by mouth twice a 14tabs Fernando Calzada 02/19/2019 - 250mg Tablets day x 7 d Fernanda Larios 03/26/2019 Uroxatral 1 by mouth every day 60tabs Fernando Calzada 01/28/2019 - 10mg Tablets ER Fernanda Larios 02/19/2019 24HR Note needs stayabimbola Calzada 01/28/2019 - stabilization device Fernanda Larios 02/19/2019 Oxycodone-Acetaminophen take one tablet by 30tabs Fernando Calzada 01/17/2019 - mouth every 6 hours Fernanda Larios 02/19/2019 5-325mg Tablets as needed - maximum daily dose of 4 per day Bactrim DS 1 by mouth twice a 20tabs Fernando Calzada 01/11/2019 - 800-160mg Tablets day Fernanda Larios 02/19/2019 Tobramycin instill 1 drop into 5ml Fernando Calzada 01/03/2019 - 0.3% Solution affected eye every 4 Fernanda Larios 02/19/2019 hours for infection Augmentin 1 by mouth twice a 14tabs Fernando Calzada 01/03/2019 - 875-125mg Tablets day x 7 days Fernanda Larios 01/10/2019 Polymyxin B instill 2 drops 10ml H00.1 Lizeth 01/01/2019 - Sulfate/Trimethoprim right eye qid x 5 1 KORY Carranza 01/03/2019 Sulfate days, [place]: [address]-4.1Unit/ML-% chalazion, Solution conjunctivitis Physical Therapy treatment and M54.5 Arlyn Bar 12/28/2018 - evaluation low back Fernanda 01/03/2019 pain Methylprednisolone dose pack as 1tabs M54.5 [place] 12/22/2018 - 4mg instructed KORY Carranza 12/28/2018 Tablets Medications Administered in Office Medication SIG Qnty Indications Ordering Provider Date Injection Subcutaneous Or Unknown 12/12/2017 Intramuscular Injection H1N1 MDCR vaccine any route Fernando Larios M.D. 06/18/2009 Injection Injection Subcutaneous Or Carlo Jordan M.D. 07/04/2003 Intramuscular Injection Immunizations CPT Code Status Date Vaccine Reaction Lot # 16811 Given 12/11/2018 Influenza Vac, Quadriv[place], [place] [id number] Given 05/26/2018 Zoster (Shingles) Vaccine (HZV), #2 Recombinant, Subunit, Adjuvanted 10039 Given 12/17/2017 Influenza Vac, Quadriv[place], [place] [address] Given 01/16/2017 High-Dose, Influenza Virus [id number] Vacccine-fluzone 65 and older 74170 Given 01/14/2016 High-Dose, Influenza Virus [id number] Vacccine-fluzone 65 and older 19042 Given 01/12/2015 Pneumococcal Conjugate Vacc-13 [id number] 61252 Given 01/12/2015 High-Dose, Influenza Virus [id number] Vacccine-fluzone 65 and older 06479 Given 01/09/2014 High-Dose, Influenza Virus [id number] Vacccine-fluzone 65 and older 27717 Given 04/04/2013 Tdap Tetanus, W Pertussis [id number] 70626 Given 02/26/2013 Preservative free flu 3 yrs+ and older [id number] Given 01/09/2011 Split Influenza Medicare: Fluzone 28918 Given 12/21/2009 DO Not Use Split Influenza Virus [id number] Vaccine 98702 Given 03/05/2009 Pneumococcal Immunization [id number] 21588 Given 02/08/2007 DO Not Use Split Influenza Virus [id number] Vaccine 91778 Given 10/08/2006 Zostivax [id number] 50685 Given 02/03/2005 DO Not Use Split Influenza Virus Vaccine 33122 Given 06/06/2003 Pneumococcal Immunization 46579 Given 06/06/2003 Td Immunization, For Use In Individuals 7 Years Or Older 56630 Given 06/06/2003 DT Immunization 94092 Given 03/02/2003 DO Not Use Split Influenza Virus Vaccine 43605 Given 03/02/2003 DO Not Use Split Influenza Virus Vaccine 43214 Given 01/27/2002 DO Not Use Split Influenza Virus Vaccine 85029 Given 03/01/2001 DO Not Use Split Influenza Virus Vaccine 51036 Given 02/07/2000 DO Not Use Split Influenza Virus Vaccine 22986 Given 01/28/1999 Whole Influenza Virus Vaccine 81535 Given 01/28/1999 DO Not Use Split Influenza Virus Vaccine 75030 Given 02/07/1998 Influenza Immunization 20033 Given 01/12/1997 Influenza Immunization 43279 Given 02/13/1993 Td Immunization, For Use In Individuals 7 Years Or Older Vital Signs Date Vital Result Comment 05/07/2019 11:24am BP Systolic 168 mmHg BP Diastolic 90 mmHg Heart Rate 84 /min Body Temperature 98.6 F Respiratory Rate 16 /min Weight 229.00 lb 04/07/2019 2:36pm BP Systolic 166 mmHg BP Diastolic 100 mmHg Heart Rate 86 /min Body Temperature 97.2 F Weight 232.00 lb Results Test Acquired Date Facility Test Result H/L Range Note Ua - Non Micro (Fma) 02/23/2019 family [facility] Appearance clear (607)- - Color yellow Glucose, Urine (Fma/CMC/CTX) neg Bilirubin neg Ketones neg SP Grav 1.015 Blood neg PH 7.0 Protein neg Urobil 0.2 Nitrite neg Leukocytes (Fma/CMC/Centrex) neg Laboratory test finding 02/19/2019 [facility] Quickstrep NEG Negative (607)- - Ua - Micro (Fma) 02/19/2019 family [facility] Appearance cloudy (607)- - Color yellow Glucose, Urine (Fma/CMC/CTX) neg Bilirubin neg Ketones neg SP Grav 1.010 Blood trace-intact PH 6.5 Protein neg Urobil 0.2 Nitrite positive Leukocytes (Fma/CMC/Centrex) large Hyaline - /Lpf Granular - /Lpf WBC (Fma,Centrex) >50 RBC 1-2 Mucus (Fma/CBC/Centrex) small amt /Lpf Epith - /Lpf Bacteria 2++ /Hpf Amorphous (Fma/CMC/Centrex) - /Lpf Crystals, Fluid (Fma/CMC/CTX) - Z#Comments - Urine Culture And 02/19/2019 [facility] Urine Culture SEE RESULT 1 Sensitivities BELOW Ict-Hemoccult 01/21/2019 [facility] Ict Hemoccult (1) 01/10/19 Neg. (MCR)Fma Screeni (607)- - Ict Hemoccult-(2) 01/11/19 Neg. Ict-Hemoccult (3) 01/12/19 Neg. Ova & Parasites Full 01/18/2019 [facility] Parasitic Exam, See Comment 2 Result O P: 01/18/2019 [facility] O P: SEE RESULT 3 Giardia/Cryptospor Giardia/Cryptospo BELOW Screen r Screen Laboratory test 01/18/2019 [facility] Stool Culture SEE RESULT 4, 5 finding BELOW Urine Culture And 01/18/2019 [facility] Urine Culture SEE RESULT 6 Sensitivities BELOW Laboratory test 01/18/2019 [facility] Magnesium 1.8 mg/dL Low 1.9-2.7 finding Lipase 17 U/L Normal 11.0-82.0 Liver Function Panel 01/18/2019 [facility] Total Protein 6.4 g/dL Normal 6.4- 8.9 Albumin 3.9 g/dL Normal 3.2-5.2 Globulin 2.5 g/dL Normal 2-4 Albumin/Globulin Ratio 1.6 Normal 1-3 Total Bilirubin 0.40 mg/dL Normal 0.2-1.0 Direct Bilirubin 0.10 mg/dL Normal 0.03-0.18 Indirect Bilirubin 0.3 mg/dL Normal 0.3-1.0 Alkaline Phosphatase 82 U/L Normal 34-104 Alt 49 U/L Normal 7-52 Ast 31 U/L Normal 13-39 Basic Metabolic Panel 01/18/2019 [facility] Sodium 129 mmol/L Low 135-145 Potassium 4.7 mmol/L Normal 3.5-5.0 Chloride 98 mmol/L Low 101-111 Co2 Carbon Dioxide 25 mmol/L Normal 22-32 Anion Gap 6 mmol/L Normal 2-11 Glucose 115 mg/dL High 70-100 Blood Urea Nitrogen 11 mg/dL Normal 6-24 Creatinine 0.79 mg/dL Normal 0.67-1.17 BUN/Creatinine Ratio 13.9 Normal 8-20 Calcium 9.0 mg/dL Normal 8.6-10.3 Egfr Non- 95.1 >60 Egfr 115.1 >60 7 Laboratory test finding 01/18/2019 [facility] Lactic Acid 1.2 mmol/L Normal 0.5- 2.0 8 Urinalysis Profile 01/18/2019 [facility] Urine Color Straw Urine Appearance Clear Urine Specific [place] 1.002 Low 1.010-1.030 Urine pH 6.0 Normal 5-9 Urine Urobilinogen Negative Negative Urine Ketones Negative Negative Urine Protein Negative Negative Urine Leukocytes Trace Abnormal Negative Urine Blood 3+ Abnormal Negative Urine Nitrite Negative Negative Urine Bilirubin Negative Negative Urine Glucose Negative Negative Urine White Blood Cell Trace(0-5/hpf) Absent Urine Red Blood Cell Trace(0-2/hpf) Absent Urine Bacteria Absent Absent CBC Auto Diff 01/18/2019 [facility] White Blood Count 7.7 10^3/uL Normal 3.5- 10.8 Red Blood Count 5.02 10^6/uL Normal 4.18-5.48 Hemoglobin 15.4 g/dL Normal 14.0-18.0 Hematocrit 46 % Normal 42-52 Mean Corpuscular Volume 92 fL Normal 80-94 Mean Corpuscular Hemoglobin 31 pg Normal 27-31 Mean Corpuscular HGB Conc 33 g/dL Normal 31-36 Red Cell Distribution Width 15 % Normal 10-15 Platelet Count 676 10^3/uL High 150-450 Mean Platelet Volume 7.4 fL Normal 7.4-10.4 Abs Neutrophils 5.8 10^3/uL Normal 1.5-7.7 Abs Lymphocytes 0.9 10^3/uL Low 1.0-4.8 Abs Monocytes 0.7 10^3/uL Normal 0-0.8 Abs Eosinophils 0.2 10^3/uL Normal 0-0.6 Abs Basophils 0.1 10^3/uL Normal 0-0.2 Abs Nucleated RBC 0.0 10^3/uL Granulocyte % 75.5 % Lymphocyte % 11.8 % Monocyte % 9.0 % Eosinophil % 2.7 % Basophil % 1.0 % Nucleated Red Blood Cells % 0.1 Urine Culture And 01/14/2019 [facility] Urine Culture SEE RESULT 9 Sensitivities BELOW Laboratory test 01/14/2019 [facility] Blood Culture SEE RESULT 10 finding BELOW CBC Auto Diff 01/14/2019 [facility] White Blood 9.0 10^3/uL Normal 3.5-10.8 Count Red Blood Count 4.88 10^6/uL Normal 4.18-5.48 Hemoglobin 15.2 g/dL Normal 14.0-18.0 Hematocrit 45 % Normal 42-52 Mean Corpuscular Volume 93 fL Normal 80-94 Mean Corpuscular Hemoglobin 31 pg Normal 27-31 Mean Corpuscular HGB Conc 34 g/dL Normal 31-36 Red Cell Distribution Width 15 % Normal 10-15 Platelet Count 585 10^3/uL High 150-450 Mean Platelet Volume 7.3 fL Low 7.4-10.4 Abs Neutrophils 6.6 10^3/uL Normal 1.5-7.7 Abs Lymphocytes 1.2 10^3/uL Normal 1.0-4.8 Abs Monocytes 0.8 10^3/uL Normal 0-0.8 Abs Eosinophils 0.2 10^3/uL Normal 0-0.6 Abs Basophils 0.1 10^3/uL Normal 0-0.2 Abs Nucleated RBC 0.0 10^3/uL Granulocyte % 74.1 % Lymphocyte % 12.9 % Monocyte % 9.2 % Eosinophil % 2.5 % Basophil % 1.3 % Nucleated Red Blood Cells % 0.0 Urinalysis Profile 01/14/2019 [facility] Urine Color Straw Urine Appearance Clear Urine Specific [place] 1.003 Low 1.010-1.030 Urine pH 5.0 Normal 5-9 Urine Urobilinogen Negative Negative Urine Ketones Trace Abnormal Negative Urine Protein Negative Negative Urine Leukocytes 2+ Abnormal Negative Urine Blood 2+ Abnormal Negative Urine Nitrite Negative Negative Urine Bilirubin Negative Negative Urine Glucose Negative Negative Urine White Blood Cell 1+(6-10/hpf) Abnormal Absent Urine Red Blood Cell Trace(0-2/hpf) Absent Urine Bacteria Absent Absent Comp Metabolic Panel 01/14/2019 [facility] Sodium 129 mmol/L Low 135-145 Potassium 4.2 mmol/L Normal 3.5-5.0 Chloride 99 mmol/L Low 101-111 Co2 Carbon Dioxide 23 mmol/L Normal 22-32 Anion Gap 7 mmol/L Normal 2-11 Glucose 111 mg/dL High 70-100 Blood Urea Nitrogen 12 mg/dL Normal 6-24 Creatinine 1.03 mg/dL Normal 0.67-1.17 BUN/Creatinine Ratio 11.7 Normal 8-20 Calcium 8.4 mg/dL Low 8.6-10.3 Total Protein 6.2 g/dL Low 6.4-8.9 Albumin 3.9 g/dL Normal 3.2-5.2 Globulin 2.3 g/dL Normal 2-4 Albumin/Globulin Ratio 1.7 Normal 1-3 Total Bilirubin 0.50 mg/dL Normal 0.2-1.0 Alkaline Phosphatase 61 U/L Normal 34-104 Alt 21 U/L Normal 7-52 Ast 22 U/L Normal 13-39 Egfr Non- 70.0 >60 Egfr 84.7 >60 11 Laboratory test 01/14/2019 [facility] Lactic Acid 0.8 mmol/L Normal 0.5-2.0 12 finding Ua - Non Micro 01/11/2019 family medicine Appearance CLEAR (Fma) (607)- - Color YELLOW Glucose, Urine (Fma/CMC/CTX) NEG Bilirubin NEG Ketones TRACE SP Grav 1.015 Blood NEG PH 6.0 Protein NEG Urobil 0.2 Nitrite NEG Leukocytes (Fma/[facility]rex) NEG Comprehensive Metabolic 01/03/2019 [facility]) Sodium 135 mEq/L 134-149 Prof Potassium 4.7 mEq/L 3.6-5.5 Chloride 103 mEq/L 94-112 Carbon Dioxide 23 mEq/L 21-32 Glucose 108 mg/dL High 70-105 13 BUN 14 mg/dL 6-26 Creatinine 0.8 mg/dL [...] >60 ml/min/1.73m^ >=60 Lipid Profile 01/03/2019 Alex [facility]) Cholesterol 188 mg/dL 120- 200 Triglycerides 138 mg/dL 30-200 HDL Cholesterol 60 mg/dL 30-70 LDL (Calculated) 100 CALC 0-129 VLDL Cholesterol 28 mg/dL 0-50 HDL Risk Factor 3.1 CALC 0.0-4.4 Laboratory test 01/03/2019 Alex Cummings([facility]) Free T4 1.27 ng/dL 0.75- 1.54 finding TSH 1.86 mIU/L 0.50-6.00 PSA 0.8 ng/mL 0.0-4.0 CBC Electronic Fma 01/03/2019 Alex Cummings([facility]) WBC 8.2 x10^3/UL 4.0- 10.0 RBC 5.43 x10^6/UL 3.93-6.00 HGB 16.7 g/dL 12.0-17.0 HCT 50 % 35-50 MCV 92.4 fL 80.0-95.0 MCH 30.8 pg 25.6-32.2 MCHC 33.3 g/dL 32.2-36.0 RDW-CV 15.4 % High 11.6-14.4 PLT 574 x10^3/UL High 163-400 MPV 9.0 fL Low 9.4-12.4 Meghan# 5.50 x10^3/UL 1.56-6.13 Lymph# 1.48 x10^3/UL 1.18-3.74 Bullock# 0.76 x10^3/UL 0.24-0.82 Eos # 0.4 x10^3/UL 0.0-0.5 Baso # 0.06 x10^3/UL 0.01-0.08 Meghan% 67.0 % 34.0-70.0 Lymph % 18.0 % Low 20.0-52.0 Bullock% 9.3 % 5.0-12.0 Eos% 4.4 % 0.7-7.0 Baso% 0.7 % 0.1-1.2 Laboratory test finding 12/28/2018 [facility] Quickstrep negative Negative (601)- - 1 SEE RESULT BELOW Name: CORRINERADHA : [address]: Fernando Larios MD Acct: [id number] Unit: [id number] AGE: 78 Location: [facility] Re02/19/19 SEX: M Status: REG REF SPEC: [id number] MARLON: 02/19/[address]: Fernando Larios MD REQ: [id number] RECD: 02/19/19 STATUS:COMP _ SOURCE: URINE SPDESC: ORDERED: Urine Culture COMMENTS: [id number] Urine Source: Random Procedure Result Reported Site Urine Culture Final 02/22/19- 0843 ML Mixed upon extended incubation. Suggest resubmission. * ML - Main Lab . END OF REPORT DEPARTMENT OF PATHOLOGY, [address] [place] [address] Miguel Harmon M.D. Director CLIA # [id number] 2 SOURCE: STOOL PARASITIC EXAMINATION FINAL No parasites seen. Cryptosporidium, Cyclospora, and microsporidia are not readily detected by this method. Single negative specimen does not rule out parasitic infection. Test Performed by: [place] [address] Rn Teacher: Yoni Ramirez M.D. Ph.D.; CLIA# [id number] 3 SEE RESULT BELOW Name: RADHA SOTO : [address]: Amadou Brown MD Acct: [id number] Unit: [id number] AGE: 78 Location: ED Re01/18/19 SEX: M Status: REG ER SPEC: [id number] MARLON: 01/18/[address]: Myla BECKER REQ: [id number] RECD: 01/18/19 STATUS: JANIE PETE DR: Amadou Larios MD _ SOURCE: STOOL [facility]: ORDERED: O P: Giar/Crypt Procedure Result Reported Site O P: Giardia/Cryptospor Screen Final 01/18/19- 1417 ML Organism 1 Neg Cryptosporidium/Giardia Giardia and cryptosporidium antigen testing performed by enzyme immunoassay. Specimen has been forwarded to reference lab for microscopic parasite examination. TEST LIMITATIONS: As with all diagnostic procedures, the results obtained should be used in conjunction with other clinical information available to the physician, including confirmation by another method. Negative results can occur in samples containing antigen below lower limits of detection of the assay. One negative specimen does not rule out the possibility of a parasitic infection. To improve detection it is recommended that three specimens be collected on separate days over a period of not more than seven days. The use of colonic washes, aspirates or other diluted sample types has not been established and could affect the performance of the assay. Stool samples contaminated with an oily or particulate base (eg. Barium, mineral oil etc.) could interfere with the test and are not recommended. * ML - Main Lab . END OF REPORT DEPARTMENT OF PATHOLOGY, [address] [place] [address] Miguel Harmon M.D. Director [facility] # [id number] 4 PLAIN CONTAINER ONLY RECEIVED: PLACE INTO [employer] AT 1305 5 SEE RESULT BELOW Name: RADHA SOTO : [address]: Amadou Brown MD Acct: [id number] Unit: [id number] AGE: 78 Location: ED Re01/18/19 SEX: M Status: DEP ER SPEC: [id number] MARLON: 01/18/[address]: Myla BECKER REQ: [id number] RECD: 01/18/19 STATUS: JANIE PETE DR: Amadou Larios MD _ SOURCE: STOOL SPDESC: ORDERED: Stool Culture COMMENTS: PLAIN CONTAINER ONLY RECEIVED: PLACE INTO [employer] AT 1305 Procedure Result Reported Site Stool Culture Final 01/20/19- 0911 ML Result No enteric pathogens isolated Overgrowth of pseudomonas observed Testing for Salmonella, Shigella, Aeromonas, Plesiomonas, Yersinia and Campylobacter are included in a Stool Culture. Vibrio spp not routinely tested for in a stool culture. If testing is desired, please request specifically when placing test order. Sensitivities not routinely performed on stool isolates, as antibiotics may prolong the carriage rate of bacteria. Please contact the microbiology lab if sensitivities are required. Stool Specimen Description Final 01/18/19- 1306 ML Stool Color Brown Stool Form Formed Stool Consistency Soft Pasty Shiga Toxin 1 2 Final 01/19/19- 1536 ML Organism 1 Negative Shiga Toxin 1 2 Immunochromatographic Assay * ML - Main Lab . END OF REPORT DEPARTMENT OF PATHOLOGY, [address] [place] [address] Miguel Harmon M.D. Director [facility] # [id number] 6 SEE RESULT BELOW Name: RADHA SOTO : [address]: Amadou Brown MD Acct: [id number] Unit: [id number] AGE: 78 Location: ED Re01/18/19 SEX: M Status: DEP ER SPEC: [id number] MARLON: 01/18/19-[address]: Amadou Brown MD REQ: [id number] RECD: 01/18/19 STATUS: COMP [facility] DR: Fernando Larios MD _ SOURCE: URINE SPDESC: ORDERED: Urine Culture Procedure Result Reported Site Urine Culture Final 01/19/19- 1226 ML No Growth (<1,000 CFU/mL) * ML - Main Lab . END OF REPORT DEPARTMENT OF PATHOLOGY, [address] [place] [address] Miguel Harmon M.D. Director [facility] # [id number] 7 Because ethnic data is not always readily available, this report includes an eGFR for both -Americans and non- Americans. The National Kidney Disease Education Program (NKDEP) does not endorse the use of the MDRD equation for patients that are not between the ages of 18 and 70, are , have extremes of body size, muscle mass, or nutritional status, or are non- or non-. According to the National Kidney Foundation, irrespective of diagnosis, the stage of the disease is based on the level of kidney function: Stage Description GFR(mL/min/1.73 m(2)) 1 Kidney damage with normal or decreased GFR 90 2 Kidney damage with mild decrease in GFR 60-89 3 Moderate decrease in GFR 30-59 4 Severe decrease in GFR 15-29 5 Kidney failure <15 (or dialysis) 8 [facility] Severe Sepsis and Septic Shock Management Bundle Measure requires all lactic acids initially measuring >2.0 mmol/L be repeated. 9 SEE RESULT BELOW Name: RADHA SOTO : [address]: Lucy Brothers MD Acct: [id number] Unit: [id number] AGE: 78 Location: [place] [address] Re01/14/19 SEX: M Status: ADM Marie SPEC: [id number] MARLON: 01/13/[address] [facility] [address]: Gianna Calix MD REQ: [id number] RECD: 01/14/19 STATUS: JANIE PETE DR: Fernando Larios MD _ SOURCE: URINE SPDESC: ORDERED: Urine Culture Procedure Result Reported Site Urine Culture Final 01/15/19- 09 ML No Growth (<1,000 CFU/mL) * ML - Main Lab . END OF REPORT DEPARTMENT OF PATHOLOGY, [address] [place] [address] Miguel Harmon M.D. Director [facility] # [id number] 10 SEE RESULT BELOW Name: GUCCIRADHA BORJAS : [address]: Lucy Brothers MD Acct: [id number] Unit: [id number] AGE: 78 Location: [place] [address] Re01/14/19 Dis: 01/16/19 SEX: M Status: DIS IN SPEC: [id number] MARLON: 01/14/19-[address] [facility] [address]: Gianna Calix MD REQ: [id number] RECD: 01/14/190023 STATUS: JANIE PETE DR: Fernando Larios MD _ SOURCE: BLOOD,VENO SPDESC: ORDERED: Blood Cult Procedure Result Reported Site Aerobic Culture Bottle Final 01/19/19- 0025 ML No Growth Day 5 Anaerobic Culture Bottle Final 01/19/19- 0025 ML No Growth Day 5 * ML - [facility] . END OF REPORT DEPARTMENT OF PATHOLOGY, [address] [place] [address] Miguel Harmon M.D. Director [facility] # [id number] 11 Because ethnic data is not always readily available, this report includes an eGFR for both -Americans and non- Americans. The National Kidney Disease Education Program (NKDEP) does not endorse the use of the MDRD equation for patients that are not between the ages of 18 and 70, are , have extremes of body size, muscle mass, or nutritional status, or are non- or non-. According to the National Kidney Foundation, irrespective of diagnosis, the stage of the disease is based on the level of kidney function: Stage Description GFR(mL/min/1.73 m(2)) 1 Kidney damage with normal or decreased GFR 90 2 Kidney damage with mild decrease in GFR 60-89 3 Moderate decrease in GFR 30-59 4 Severe decrease in GFR 15-29 5 Kidney failure <15 (or dialysis) 12 [facility] Severe Sepsis and Septic Shock Management Bundle Measure requires all lactic acids initially measuring >2.0 mmol/L be repeated. 13 NON-FASTING Procedures Date Code Description Status 01/03/2019 84949 Electrocardiogram Complete Completed 05/01/2015 98009044 Colonoscopy Completed 01/05/2008 74201047 Colonoscopy Completed Medical Devices Description No Information Available Encounters Type Date Location Provider Dx Diagnosis Office Visit 04/07/2019 [facility] Office Lizeth B37.2 Candidiasis of skin 2:30p Tere, STORE HAND and nail Office Visit 03/26/2019 [facility] Office Lizeth B37.2 Candidiasis of skin 12:30p Tere, STORE HAND and nail Office Visit 02/23/2019 [facility] Office Lizeth N40.0 Benign prostatic 9:45a Tere, STORE HAND hyperplasia without lower urinry tract symp N39.0 Urinary tract infection, site not specified Office Visit 02/19/2019 9:00a [facility] Fernando Calzada N40.0 Benign prostatic Fernanda Larios hyperplasia without lower urinry tract symp J02.9 Acute pharyngitis, unspecified R10.84 Generalized abdominal pain N39.0 Urinary tract infection, site not specified Office Visit 01/28/2019 3:00p [facility] Office Fernando Calzada N40.1 Benign prostatic Fernanda Larios hyperplasia with lower urinary tract symp Office Visit 01/11/2019 6:40p Main Office Fernando Calzada I10 Essential Fernanda Larios (primary) hypertension N41.0 Acute prostatitis Office Visit 01/03/2019 2:00p [facility] Fernando Calzada H00.11 Chalazion right Ric M.D. 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 unspecified M54.5 Low back pain Assessments Date Code Description Provider 05/07/2019 B37.2 Candidiasis of skin and nail Lizeth Tere, [facility] 05/07/2019 I10 Essential (primary) hypertension Lizeth Tere, [facility] 05/07/2019 R53.1 Weakness Lizeth Tere, [facility] 04/07/2019 B37.2 Candidiasis of skin and nail Lizeth Tere, [facility] 03/26/2019 B37.2 Candidiasis of skin and nail Lizeth Tere, [facility] 02/23/2019 N40.0 Benign prostatic hyperplasia without lower Lizeth Tere, [facility] urinary tract symptoms 02/23/2019 N39.0 Urinary tract infection, site not specified Lzieth Tere, [facility] 02/19/2019 N40.0 Benign prostatic hyperplasia without lower Fernando Larios M.D. urinary tract symptoms 02/19/2019 J02.9 Acute pharyngitis, unspecified Fernando Larios M.D. 02/19/2019 R10.84 Generalized abdominal pain Fernando Larios M.D. 02/19/2019 N39.0 Urinary tract infection, site not specified Fernando Larios M.D. 01/28/2019 N40.1 Benign prostatic hyperplasia with lower Fernando Larios M.D. urinary tract symptoms 01/21/2019 Z12.11 Encounter for screening for malignant Fernando Larios M.D. neoplasm of colon 01/21/2019 Z12.12 Encounter for screening for malignant Fernando Larios M.D. neoplasm of rectum 01/17/2019 R19.7 Diarrhea, unspecified Fernando Larios M.D. 01/11/2019 I10 Essential (primary) hypertension Fernando Larios [...] M.D. examination without abnormal findings 01/03/2019 Z79.82 FDC (current) use of aspirin Fernando Larios M.D. 01/01/2019 H00.11 Chalazion right upper eyelid Lizeth Carranza, [facility] 01/01/2019 H11.31 Conjunctival hemorrhage, right eye Lizeth Carrnaza, [facility] 12/28/2018 J02.9 Acute pharyngitis, unspecified Arlyn Bar M.D. 12/28/2018 M54.5 Low back pain Arlyn Bar M.D. Plan of Treatment Future Appointment(s):07/01/2019 10:00 am - Fernando Larios M.D. at [facility]05/07/2019 - Lizeth Carranza, FNPB37.2 Candidiasis of skin and nailI10 Essential (primary) hypertensionNew Labs:Comp Metabolic-ALL Lab [facility], Ordered : 05/07/19CBC Electronic-ALL Lab Compani, Ordered: 05/07/19Comments:The patient will continue to monitor blood pressure in the near future, and let me know the blood pressure results if there are readings above 135/85.Follow up: increase ramipril to 5 mg daily, in split doses is fine, and I need to know your blood pressure by about WEDS/THURS next week at the zauoyjI55.1 Weakness Functional Status Description No Information Available Mental Status Description No Information Available Referrals Refer to Reason for Referral Status Appt Date Taye Tenorio Consult and treat. LT Created [address] [place] [address] [place] [address] [phone]
--- OUTSIDE RECORDS SUMMARY | 2019-06-01 08:52 | XMS REPORT | Continuity of Care Document ---
:1940 External Reference #:[id number] Author Name Tuan Lei MD Address [address] [place] [address] Care Team Providers Name Role Phone Amadou Bower MD - Surgery Care Team Information Manager Terminal [phone] Jensen Osborn MD - Cardiovascular Care Team Information Manager Terminal Disease Amadou Foreman - Cardiovascular Disease Care Team Information Manager Terminal [phone] Problems Active Problems Provider Date Benign essential [...] Medications SIG Qnty Indications Ordering Provider Date Fluconazole 300mg orally 6tabs B37.2 Tuan BlairRosalina 05/09/2019 100mg once a week, MD Quique Tablets repeat in one week. Ketoconazole apply to 60gm B37.2 Tuan BlairRosalina 03/26/2019 2% Cream affected area MD Quique groin twice a day Diazepam 1 by mouth four 90tabs Fernando Larios, 06/21/2018 2mg Tablets times a day as M.D. needed Ramipril take 2 capsule 180caps Lizeth Carranza, 01/16/2017 2.5mg by mouth once [employer] Capsules daily Baby Aspirin 1 po qd Family Medicine 04/04/2013 81mg [facility] Vitamin B-12 CR 1 po qd 100tabs [...] Polymyxin B instill 2 drops 10ml H00.1 [place] 01/01/2019 - Sulfate/Trimethoprim right eye qid x 5 1 [facility] 01/03/2019 Sulfate [place], [place]: [address]-7.1Unit/ML-% chalazion, Solution conjunctivitis Physical Therapy treatment and M54.5 Arlyn Bar 12/28/2018 - evaluation low back Fernanda 01/03/2019 pain Methylprednisolone dose pack as 1tabs M54.5 Lizeth 12/22/2018 - 4mg instructed [facility] 12/28/2018 Tablets Medications Administered in Office Medication SIG Qnty Indications Ordering Provider Date Injection Subcutaneous Or Unknown 12/12/2017 Intramuscular Injection H1N1 MDCR vaccine any route Fernando Larios M.D. 06/18/2009 Injection Injection Subcutaneous Or Carlo Jordan M.D. 07/04/2003 Intramuscular Injection Immunizations CPT Code Status Date Vaccine Reaction Lot # [id number] Given 12/11/2018 Influenza Vac, Quadriv[place], [place] [address] Given 05/26/2018 Zoster (Shingles) Vaccine (HZV), #2 Recombinant, Subunit, Adjuvanted 00671 Given 12/17/2017 Influenza Vac, Quadriv[place], [place] [address] Given 01/16/2017 High-Dose, Influenza Virus [id number] Vacccine-fluzone 65 and older 75070 Given 01/14/2016 High-Dose, Influenza Virus [id number] Vacccine-fluzone 65 and older 94084 Given 01/12/2015 Pneumococcal Conjugate Vacc-13 [id number] 88604 Given 01/12/2015 High-Dose, Influenza Virus [id number] Vacccine-fluzone 65 and older 38060 Given 01/09/2014 High-Dose, Influenza Virus [id number] Vacccine-fluzone 65 and older 23830 Given 04/04/2013 Tdap Tetanus, W Pertussis [id number] 25842 Given 02/26/2013 Preservative free flu 3 yrs+ and older [id number] Given 01/09/2011 Split Influenza Medicare: Fluzone 50500 Given 12/21/2009 DO Not Use Split Influenza Virus [id number] Vaccine 78786 Given 03/05/2009 Pneumococcal Immunization [id number] 48650 Given 02/08/2007 DO Not Use Split Influenza Virus [id number] Vaccine 19099 Given 10/08/2006 Zostivax [id number] 69949 Given 02/03/2005 DO Not Use Split Influenza Virus Vaccine 58110 Given 06/06/2003 Pneumococcal Immunization 77669 Given 06/06/2003 Td Immunization, For Use In Individuals 7 Years Or Older 89996 Given 06/06/2003 DT Immunization 70765 Given 03/02/2003 DO Not Use Split Influenza Virus Vaccine 17654 Given 03/02/2003 DO Not Use Split Influenza Virus Vaccine 81112 Given 01/27/2002 DO Not Use Split Influenza Virus Vaccine 35856 Given 03/01/2001 DO Not Use Split Influenza Virus Vaccine 92119 Given 02/07/2000 DO Not Use Split Influenza Virus Vaccine 97369 Given 01/28/1999 Whole Influenza Virus Vaccine 83473 Given 01/28/1999 DO Not Use Split Influenza Virus Vaccine 87125 Given 02/07/1998 Influenza Immunization 23453 Given 01/12/1997 Influenza Immunization 14788 Given 02/13/1993 Td Immunization, For Use In Individuals 7 Years Or Older Vital Signs Date Vital Result Comment 05/09/2019 8:30am BP Systolic 160 mmHg BP Diastolic 84 mmHg Heart Rate 80 /min Body Temperature 97.7 F Height 70 inches 5'10" per pt Weight 228.00 lb BMI (Body Mass Index) 32.7 kg/m2 05/07/2019 11:24am BP Systolic 168 mmHg BP Diastolic 90 mmHg Heart Rate 84 /min Body Temperature 98.6 F Respiratory Rate 16 /min Weight 229.00 lb Results Test Acquired Date Facility Test Result H/L Range Note CBC + Hematology 05/10/2019 [facility] WBC 9.3 x10E3/uL 3.4-10.8 Review [address] [place] [address] (607)- - RBC 5.96 x10E6/uL High 4.14-5.80 Hemoglobin 18.5 g/dL High 13.0-17.7 Hematocrit 54.3 % High 37.5-51.0 MCV 91 fL 79-97 MCH 31.0 pg 26.6-33.0 MCHC 34.1 g/dL 31.5-35.7 RDW 15.1 % 11.6-15.4 Immature Cells TNP NRBC TNP Laboratory test 05/09/2019 [facility] Fungal Cult <pending> finding Other Sources CBC Electronic ([facility] 05/07/2019 [facility] WBC 7.61 4.0-10.0 New) (607)- - RBC 6.32 High 3.93-6.0 Hemoglobin (Fma/CMC/CTX) 19.2 g/dL High 12.0-17.0 Hematocrit (a/CMC/CTX) 58.4 % High 35.0-50.0 Mean Corpuscular Vol 92.4 fL 80-95 Mean Corpuscular Hemoglobin 30.4 pg 25.6-32.2 Mean Corpuscular Hemo Concen 32.9 g/dL 32.2-36.0 Platelets 699 10^3/ul High 163-400 RDW-CV 15.9 High 11.6-14.4 Mean Platelet Volume 8.6 fL 8.0-12.4 Absolute Neutrophils BLD 5.56 1.56-6.13 Absolute Lymphocytes 1.00 Low 1.18-3.74 Absolute Monocytes BLD Auto 0.70 0.24-0.82 Absolute Eos Blood 0.22 0.04-0.54 Absolute Basophils 0.09 High 0.01-0.08 Neutrophil % 73.1 % High 34.0-70.0 Lymph% 13.1 % Low 20.0-52.0 Monocytes % 9.2 % 5.0-12.0 Eos % 2.9 % 0.7-7.0 Basophil% 1.2 % 0-1.2 Ua - Non Micro ([facility]) 02/23/2019 [facility] Appearance clear (607)- - Color yellow Glucose, Urine (a/CMC/CTX) neg Bilirubin neg Ketones neg SP Grav 1.015 Blood neg PH 7.0 Protein neg Urobil 0.2 Nitrite neg Leukocytes ([facility]) neg Laboratory test finding 02/19/2019 [facility] Quickstrep NEG Negative (607)- - Ua - Micro (Fma) 02/19/2019 [facility] Appearance cloudy (607)- - Color yellow Glucose, [...] - Z#Comments - Urine Culture And 02/19/2019 [facility] Urine Culture SEE RESULT 1 Sensitivities BELOW Ict-Hemoccult 01/21/2019 [facility] Ict Hemoccult (1) 01/10/19 Neg. (MCR)Fma Screeni (607)- - Ict Hemoccult-(2) 01/11/19 Neg. Ict-Hemoccult (3) 01/12/19 Neg. Ova & Parasites Full 01/18/2019 [facility] Parasitic Exam, See Comment 2 Result O P: 01/18/2019 [facility] O P: SEE RESULT 3 Giardia/Cryptospor Giardia/Cryptospo BELOW Screen r Screen Laboratory test 01/18/2019 [facility] Stool Culture SEE RESULT 4, 5 finding BELOW Urine Culture And 01/18/2019 [facility] Urine Culture SEE RESULT 6 Sensitivities BELOW Laboratory test 01/18/2019 [facility] Magnesium 1.8 mg/dL Low 1.9-2.7 finding Lipase 17 U/L Normal 11.0-82.0 Liver Function Panel 01/18/2019 [facility] Total Protein 6.4 g/dL Normal 6.4- 8.9 Albumin 3.9 g/dL Normal 3.2-5.2 Globulin 2.5 g/dL Normal 2-4 Albumin/Globulin Ratio 1.6 Normal 1-3 Total Bilirubin 0.40 mg/dL Normal 0.2-1.0 Direct Bilirubin 0.10 mg/dL Normal 0.03-0.18 Indirect Bilirubin 0.3 mg/dL Normal 0.3-1.0 Alkaline Phosphatase 82 U/L Normal 34-104 Alt 49 U/L Normal 7-52 Ast 31 U/L Normal 13-39 Basic Metabolic Panel 01/18/2019 [facility] Sodium 129 mmol/L Low 135-145 Potassium 4.7 [...] 115.1 >60 7 Laboratory test finding 01/18/2019 [facility] Lactic Acid 1.2 mmol/L Normal 0.5- 2.0 8 Urinalysis Profile 01/18/2019 [facility] Urine Color Straw Urine Appearance Clear Urine Specific O'Brien 1.002 Low 1.010-1.030 Urine pH 6.0 Normal 5-9 Urine Urobilinogen Negative Negative Urine Ketones Negative Negative Urine Protein Negative Negative Urine Leukocytes Trace Abnormal Negative Urine Blood 3+ Abnormal Negative Urine Nitrite Negative Negative Urine Bilirubin Negative Negative Urine Glucose Negative Negative Urine White Blood Cell Trace(0-5/hpf) Absent Urine Red Blood Cell Trace(0-2/hpf) Absent Urine Bacteria Absent Absent CBC Auto Diff 01/18/2019 [facility] White Blood Count 7.7 10^3/uL Normal 3.5- [...] Cells % 0.1 Urine Culture And 01/14/2019 [facility] Urine Culture SEE RESULT 9 Sensitivities BELOW Laboratory test 01/14/2019 [facility] Blood Culture SEE RESULT 10 finding BELOW CBC Auto Diff 01/14/2019 [facility] White Blood 9.0 10^3/uL Normal 3.5-10.8 Count [...] Blood Cells % 0.0 Urinalysis Profile 01/14/2019 [facility] Urine Color Straw Urine Appearance Clear Urine Specific O'Brien 1.003 Low 1.010-1.030 Urine pH 5.0 Normal [...] Bacteria Absent Absent Comp Metabolic Panel 01/14/2019 [facility] Sodium 129 mmol/L Low 135-145 Potassium 4.2 [...] Egfr 84.7 >60 11 Laboratory test 01/14/2019 [facility] Lactic Acid 0.8 mmol/L Normal 0.5-2.0 12 finding Ua - Non Micro 01/11/2019 [facility] Appearance CLEAR (Fma) (607)- - Color YELLOW Glucose, Urine (Fma/CMC/CTX) NEG Bilirubin NEG Ketones TRACE SP Grav 1.015 Blood NEG PH 6.0 Protein NEG Urobil 0.2 Nitrite NEG Leukocytes (Fma/CMC/[facility]) NEG Comprehensive Metabolic 01/03/2019 [facility](fma) Sodium 135 mEq/L 134-149 Prof Potassium 4.7 [...] >60 ml/min/1.73m^ >=60 Lipid Profile 01/03/2019 Alex Cummings([facility]) Cholesterol 188 mg/dL 120- 200 Triglycerides 138 mg/dL 30-200 HDL Cholesterol 60 mg/dL 30-70 LDL (Calculated) 100 CALC 0-129 VLDL Cholesterol 28 mg/dL 0-50 HDL Risk Factor 3.1 CALC 0.0-4.4 Laboratory test 01/03/2019 Alex Cummings([facility]) Free T4 1.27 ng/dL 0.75- 1.54 finding TSH 1.86 mIU/L 0.50-6.00 PSA 0.8 ng/mL 0.0-4.0 CBC Electronic Fma 01/03/2019 Alex Cummings([facility]) WBC 8.2 x10^3/UL 4.0- 10.0 RBC 5.43 x10^6/UL 3.93-6.00 HGB 16.7 g/dL 12.0-17.0 HCT 50 % 35-50 MCV 92.4 fL 80.0-95.0 MCH 30.8 pg 25.6-32.2 MCHC 33.3 g/dL 32.2-36.0 RDW-CV 15.4 % High 11.6-14.4 PLT 574 x10^3/UL High 163-400 MPV 9.0 fL Low 9.4-12.4 Meghan# 5.50 x10^3/UL 1.56-6.13 Lymph# 1.48 x10^3/UL 1.18-3.74 Placer# 0.76 x10^3/UL 0.24-0.82 Eos # 0.4 x10^3/UL 0.0-0.5 Baso # 0.06 x10^3/UL 0.01-0.08 Meghan% 67.0 % 34.0-70.0 Lymph % 18.0 % Low 20.0-52.0 Placer% 9.3 % 5.0-12.0 Eos% 4.4 % 0.7-7.0 Baso% 0.7 % 0.1-1.2 Laboratory test [facility] - 1 SEE RESULT BELOW Name: CORRINERADHA Emanuel : [address]: Fernando Larios MD Acct: [id number] Unit: [id number] AGE: 78 Location: [facility] Re02/19/19 SEX: M Status: REG REF SPEC: [id number] MARLON: 02/19/19-[address]: Fernando Larios MD REQ: [id number] RECD: 02/19/19 STATUS:COMP _ SOURCE: URINE SPDESC: ORDERED: Urine Culture COMMENTS: [id number] Urine Source: Random Procedure Result Reported Site Urine Culture Final 02/22/19- 0843 ML Mixed upon extended incubation. Suggest resubmission. * ML - Main Lab . END OF REPORT DEPARTMENT OF PATHOLOGY, [address] [place] [address] Miguel Harmon M.D. Director [place] # [id number] 2 SOURCE: STOOL PARASITIC EXAMINATION FINAL No parasites seen. Cryptosporidium, Cyclospora, and microsporidia are not readily detected by this method. Single negative specimen does not rule out parasitic infection. Test Performed by: [place] [address] [employer] Sewing Machine Operator: Yoni Ramirez M.D. Ph.D.; CLIA# [id number] 3 SEE RESULT BELOW Name: RADHA SOTO : [address]: Amadou Brown MD Acct: [id number] Unit: [id number] AGE: 78 Location: ED Re01/18/19 SEX: M Status: REG ER SPEC: [id number] MARLON: 01/18/19-[address]: Myla BECKER REQ: [id number] RECD: 01/18/19 STATUS: JANIE PETE DR: Amadou Larios MD _ SOURCE: STOOL [facility]: ORDERED: O P: Giar/Crypt Procedure Result Reported Site O P: Giardia/Cryptospor Screen Final 01/18/19- 141 ML Organism 1 Neg Cryptosporidium/Giardia Giardia and [...] . END OF REPORT DEPARTMENT OF PATHOLOGY, [address] [place] [address] Miguel Harmon M.D. Director [facility] # [id number] 4 PLAIN CONTAINER ONLY RECEIVED: PLACE INTO [employer] AT 1305 5 SEE RESULT BELOW Name: RADHA SOTO : [address]: Amadou Brown MD Acct: [id number] Unit: [id number] AGE: 78 Location: ED Re01/18/19 SEX: M Status: DEP ER SPEC: [id number] MARLON: 01/18/[address]: Myla BECKER REQ: [id number] RECD: 01/18/19 STATUS: JANIE PETE DR: Amadou Larios MD _ SOURCE: STOOL SPDESC: ORDERED: Stool Culture COMMENTS: PLAIN CONTAINER ONLY RECEIVED: PLACE INTO [employer] AT 1305 Procedure Result Reported Site Stool [...] . END OF REPORT DEPARTMENT OF PATHOLOGY, [address] [place] [address] Miguel Harmon M.D. Director [facility] # [id number] 6 SEE RESULT BELOW Name: RADHA SOTO : [address]: Amadou Brown MD Acct: [id number] Unit: [id number] AGE: 78 Location: ED Re01/18/19 SEX: M Status: DEP ER SPEC: [id number] MARLON: 01/18/[address] [facility] [address]: Amadou Brown MD REQ: [id number] RECD: 01/18/19 STATUS: JANIE PETE DR: Fernando Larios MD _ SOURCE: URINE SPDESC: ORDERED: Urine Culture Procedure Result Reported Site Urine Culture Final 01/19/19- 1226 ML No Growth (<1,000 CFU/mL) * ML - Main Lab . END OF REPORT DEPARTMENT OF PATHOLOGY, [address] [place] [address] Mgiuel Harmon M.D. Director [facility] # [id number] 7 Because ethnic data is not always [...] 5 Kidney failure <15 (or dialysis) 8 MNS Severe Sepsis and Septic Shock Management Bundle Measure requires all lactic acids initially measuring >2.0 mmol/L be repeated. 9 SEE RESULT BELOW Name: GUCCIRADHA BORJAS : [address]: Lucy Brothers MD Acct: [id number] Unit: [id number] AGE: 78 Location: [place] [address] Re01/14/19 SEX: M Status: ADM Marie SPEC: [id number] MARLON: 01/13/19-[address] [facility] [address]: Gianna Calix MD REQ: [id number] RECD: 01/14/19-101 STATUS: JANIE PETE DR: Fernando Larios MD _ SOURCE: URINE SPDESC: ORDERED: Urine Culture Procedure Result Reported Site Urine Culture Final 01/15/19- 907 ML No Growth (<1,000 CFU/mL) * ML - Main Lab . END OF REPORT DEPARTMENT OF PATHOLOGY, [address] [place] [address] Miguel Harmon M.D. Director [facility] # [id number] 10 SEE RESULT BELOW Name: RADHA SOTO : [address]: Lucy Brothers MD Acct: [id number] Unit: [id number] AGE: 78 Location: [place] [address] Re01/14/19 Dis: 01/16/19 SEX: M Status: DIS IN SPEC: [id number] MARLON: 01/14/19-[address]: Gianna Calix MD REQ: [id number] RECD: 01/14/19 STATUS: COMP OTHR DR: Fernando Larios MD _ SOURCE: BLOOD,VENO SPDESC: ORDERED: Blood Cult Procedure Result Reported Site Aerobic Culture Bottle Final 01/19/19- 0025 ML No Growth Day 5 Anaerobic Culture Bottle Final 01/19/19- 0025 ML No Growth Day 5 * ML - Main Lab . END OF REPORT DEPARTMENT OF PATHOLOGY, [address] [place] [address] Miguel Harmon M.D. Director [facility] # [id number] 11 Because ethnic data is not always [...] 5 Kidney failure <15 (or dialysis) 12 [facility] Severe Sepsis and Septic Shock Management Bundle Measure requires all lactic acids initially measuring >2.0 mmol/L be repeated. 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 and nail I10 Essential (primary) hypertension R53.1 Weakness Office Visit 04/07/2019 2:30p [facility] Office Lizeth B37.2 Candidiasis of Tere, [employer]ELOPER skin and nail Office Visit 03/26/2019 12:30p [facility] Lizeth B37.2 Candidiasis of Tere, [employer] DEVELOPER skin and nail Office Visit 02/23/2019 9:45a [facility] Lizeth N40.0 Benign prostatic Tere, [employer]ELOPER hyperplasia without lower urinry tract symp N39.0 Urinary tract infection, site not specified Office Visit 02/19/2019 9:00a [facility] Fernando Calzada N40.0 Benign prostatic Fernanda Larios hyperplasia without lower urinry tract symp J02.9 Acute pharyngitis, unspecified R10.84 Generalized abdominal pain N39.0 Urinary tract infection, site not specified Office Visit 01/28/2019 3:00p [facility] Fernando Calzada N40.1 Benign prostatic Fernanda Larios hyperplasia with lower urinary tract symp Office Visit 01/11/2019 6:40p Main Office Fernando FRosalina I10 Essential Fernanda Larios (primary) hypertension N41.0 Acute prostatitis Office Visit 01/03/2019 2:00p [facility] Fernando Calzada H00.11 Chalazion right Fernanda Larios upper eyelid I10 Essential (primary) hypertension N40.0 Benign prostatic hyperplasia without lower urinry tract symp H10.89 Other conjunctivitis L57.0 Actinic keratosis Z00.00 Encntr for general adult medical exam w/o abnormal findings Z79.82 snf (current) use of aspirin Office Visit 01/01/2019 12:00p [facility] Office Lizeth H00.11 Chalazion right [facility], [facility] upper eyelid H11.31 Conjunctival hemorrhage, right eye Office Visit 12/28/2018 3:40p [facility] Office rAlyn Bar, J02.9 Acute pharyngitis, MRosalinaDRosalina unspecified M54.5 Low back pain Assessments Date Code Description Provider 05/10/2019 I10 Essential (primary) hypertension Fernando Larios M.D. 05/10/2019 I10 Essential (primary) hypertension Lizeth Tere, [facility] 05/09/2019 B37.2 Candidiasis of skin and nail Tuan Lei MD 05/07/2019 B37.2 Candidiasis of skin and nail Lizeth Tere, [facility] 05/07/2019 I10 Essential (primary) hypertension Lizeth Tere, [facility] 05/07/2019 R53.1 Weakness Lizeth Tere, [facility] 04/07/2019 B37.2 Candidiasis of skin and nail Lizeth Tere, [facility] 03/26/2019 B37.2 Candidiasis of skin and nail Lizeth Tere, [facility] 02/23/2019 N40.0 Benign prostatic hyperplasia without lower Lizeth Tere, [facility] urinary tract symptoms 02/23/2019 N39.0 Urinary tract infection, site not Lizeth Tere, [employer] DEVEL[employer] specified 02/19/2019 N40.0 Benign prostatic hyperplasia without lower Fernando Larios M.D. urinary tract symptoms 02/19/2019 J02.9 Acute pharyngitis, unspecified Fernando Larios M.D. 02/19/2019 R10.84 Generalized abdominal pain Fernando Larios M.D. 02/19/2019 N39.0 Urinary tract infection, site not Fernando Larios M.D. specified 01/28/2019 N40.1 Benign prostatic hyperplasia with lower [...] M.D. examination without abnormal findings 01/03/2019 Z79.82 snf (current) use of aspirin Fernando Larios M.D. 01/01/2019 H00.11 Chalazion right upper eyelid Lizeth Carranza, [facility] 01/01/2019 H11.31 Conjunctival hemorrhage, right eye Lizeth Carranza, [facility] 12/28/2018 J02.9 Acute pharyngitis, unspecified Arlyn Bar M.D. 12/28/2018 M54.5 Low back pain Arlyn Bar M.D. Plan of Treatment Future Appointment(s):07/01/2019 10:00 am - Fernando Larios M.D. at [facility]05/09/2019 - Tuan Lei MDB37.2 Candidiasis of skin and nailNew Medication:Fluconazole 100 mg - 300mg orally once a week, repeat in one week.AllComments:Medication Management Patient Understands medications he's taking? Yes No Are there Barriersto Adherence? Yes No Has the patient been asked about herbal supplements and therapies, and OTC meds? Yes No Functional Status Description No Information Available Mental Status Description No Information Available Referrals Refer to Reason for Referral Status Appt Date Taye Tenorio Consult and treat. LT Created [address] [place] [address] [place] [address] [phone]
[2019-06-01 10:53] LABS: Hematocrit 51 % (42-52); Hemoglobin 16.9 g/dL (14.0-18.0); Mean Corpuscular HGB Conc 33 g/dL (31-36); Mean Corpuscular Hemoglobin 31 pg (27-31); Mean Corpuscular Volume 92 fL (80-94); Mean Platelet Volume 7.3 fL (7.4-10.4); Platelet Count 755 10^3/uL (150-450); Red Blood Count 5.51 10^6 /uL (4.18-5.48); Red Cell Distribution Width 15 % (10-15); White Blood Count 14.4 10^3/uL (3.5-10.8)
[2019-06-01 11:06] LABS: INR 1.07 (0.82-1.09)
[2019-06-01 11:14] LABS: ABS Basophils 0.2 10^3/ul (0-0.2); ABS Eosinophils 0.1 10^3/ul (0-0.6); ABS Lymphocytes 0.8 10^3/ul (1.0-4.8); ABS Monocytes 1.3 10^3/ul (0-0.8); ABS Neutrophils 12.1 10^3/ul (1.5-7.7); Eosinophil % 0.8 %; Lymphocyte % 5.2 %; Nucleated Red Blood Cells % 0.2
[2019-06-01] MEDS ORDERED: Acetaminophen TAB* 325 MG PO ONE (11:34)
[2019-06-01 11:35] LABS: Albumin/Globulin Ratio 1.4 (1-3); BUN/Creatinine Ratio 17.1 (8-20); Calcium 9.4 mg/dL (8.6-10.3); EGFR African American 82.9 (>60); EGFR Non-African American 68.5 (>60); Globulin 2.8 g/dL (2-4); Total Protein 6.8 g/dL (6.4-8.9)
[2019-06-01 12:34] VITALS: BP 117/74
--- NOTE | 2019-06-01 12:54 | ED ---
Lower Extremity - HPI Summary HPI Summary: This patient is a 78-year-old male presenting to the ED with moderate to severe left posterior leg pain over the hamstring which is been present 2 days. He states 2 days ago while walking across [facility] he felt a sharp pain to his left hamstring and had diffuse pain immediately following throughout the hamstring as well as the lateral portion of the leg. Denies any pain to the thigh. Denies any pain to the knee, posterior knee or to the calf. He has required the use of a walker for the past 2 days for ambulation. He typically ambulate well independently. His past medical history is significant for recent findings of thrombocytosis, high hemoglobin count and recent fatigue. He is a patient of Dr. Hams, oncology, who is currently working up this patient for these abnormalities. Pt denies hx of blood disorder. Denies history of tears, recent abx use, recent illness. He does state he has been more fatigued recently (over the past few weeks to months.) Current medications include: Baby aspirin. - History of Current Complaint Chief Complaint: EDExtremityLower Stated Complaint: LEFT LEG PAIN PER PT Time Seen by Provider: 06/01/19 08:59 Hx Obtained From: Patient Mechanism Of Injury: Other - none Onset of Pain: Immediate Onset/Duration: Days Severity Initially: Moderate Severity Currently: Moderate Pain Intensity: 8 Pain Scale Used: 0-10 Numeric Timing: Constant Location: Is Discrete @ - hamstring without pain to the quadricep Character Of Pain: Aching Associated Signs And Symptoms: Negative: Swelling, Redness, Bruising Aggravating Factor(s): Standing, Ambulation Alleviating Factor(s): Rest Able to Bear Weight: Yes - with walker - Allergies/Home Medications Allergies/Adverse Reactions: Allergies Allergy/AdvReac Type Severity Reaction Status Date / Time No Known Allergies Allergy Verified 01/18/19 11:13 PMH/Surg Hx/FS Hx/Imm Hx Previously Healthy: Yes Endocrine/Hematology History: Reports: Hx Anticoagulant Therapy - Apirin Denies: Hx Diabetes Cardiovascular History: Reports: Hx Hypertension, Other Cardiovascular Problems/ Disorders - HX ARRYTHMIA- ABLATION 4.5 YEARS AGO- NO PROBLEMS SINCE Denies: Hx Pacemaker/ICD Respiratory History: Reports: Hx Sleep Apnea Musculoskeletal History: Reports: Hx Arthritis Denies: Hx Scoliosis Sensory History: Reports: Hx Cataracts - BILATERAL, Hx Contacts or Glasses - Reading Denies: Hx Hearing Aid Opthamlomology History: Reports: Hx Cataracts - BILATERAL, Hx Contacts or Glasses - Reading Neurological History: Reports: Hx CVA Denies: Hx Headaches, Hx Seizures, Other Neuro Impairments/Disorders - Surgical History Surgery Procedure, Year, and Place: cardiac ablations; hernia; GB; appendectomy Hx Anesthesia Reactions: No - Immunization History Date of Tetanus Vaccine: [place] Date of Influenza Vaccine: 12/09/2018 Hx Pertussis Vaccination: No Immunizations Up to Date: Yes Infectious Disease History: No Infectious Disease History: Denies: Traveled Outside the [place] in Last 30 Days - Family History Known Family History: Positive: None - Pt denies any Negative: Cardiac Disease - Social History Occupation: Employed Part-time Lives: Alone Alcohol Use: Weekly Alcohol Amount: 1-2 GLASSES PER WEEK Hx Substance Use: No Substance Use Type: Reports: None Hx Tobacco Use: No Smoking Status (MU): Never Smoked Tobacco Review of Systems Negative: Fever, Chills, Fatigue, Skin Diaphoresis Negative: Palpitations, Chest Pain Negative: Shortness Of Breath, Cough Negative: Abdominal Pain, Vomiting, Diarrhea, Nausea Genitourinary: Negative Positive: no symptoms reported, see HPI Positive: Myalgia - hamstring pain. Negative: Edema Positive: Bruising - small amount of ecchymosis just distal to the posterior knee Neurological/Mental Status: Negative Positive: Headache All Other Systems Reviewed And Are Negative: Yes Physical Exam Triage Information Reviewed: Yes Vital Signs On Initial Exam: Initial Vitals Temp Pulse Resp BP Pulse Ox 97.0 F 93 18 137/74 95 06/01/19 08:38 06/01/19 08:38 06/01/19 08:38 06/01/19 08:38 06/01/19 08:38 Vital Signs Reviewed: Yes Appearance: Positive: Well-Appearing, Well-Nourished Skin: Positive: Warm, Skin Color Reflects Adequate Perfusion, Other - some ecchymosis just distal to the posterior knee without discoloration to the thigh or evidence of tendon rupture Neck: Positive: Supple, No Lymphadenopathy Respiratory/Lung Sounds: Positive: Clear to Auscultation, Breath Sounds Present Cardiovascular: Positive: RRR, Pulses are Symmetrical in both Upper and Lower Extremities Musculoskeletal: Positive: Other - pt has full mobility and can flex and extend at the hip, the knee and the ankle without limitations Neurological: Positive: Sensory/Motor Intact, Alert, Oriented to Person Place, Time, Speech Normal Psychiatric: Positive: Affect/Mood Appropriate Procedures - Sedation Patient Received Moderate/Deep Sedation with Procedure: No Diagnostics - Vital Signs Vital Signs Temp Pulse Resp BP Pulse Ox 06/01/19 08:38 97.0 F 93 18 137/74 95 - Laboratory Lab Results: Lab Results 06/01/19 06/01/19 06/01/19 Range/Units 10:39 10:39 10:39 WBC 14.4 H (3.5-10.8) 10^3/uL RBC 5.51 H (4.18-5.48) 10^6 /uL Hgb 16.9 (14.0-18.0) g/dL Hct 51 (42-52) % MCV 92 (80-94) fL MCH 31 (27-31) pg MCHC 33 (31-36) g/dL RDW 15 (10-15) % Plt Count 755 H (150-450) 10^3/uL MPV 7.3 L (7.4-10.4) fL Neut % (Auto) 84.0 % Lymph % (Auto) 5.2 % Cobb % (Auto) 8.8 % Eos % (Auto) 0.8 % Baso % (Auto) 1.2 % Absolute Neuts (auto) 12.1 H (1.5-7.7) 10^3/ul Absolute Lymphs (auto) 0.8 L (1.0-4.8) 10^3/ul Absolute Monos (auto) 1.3 H (0-0.8) 10^3/ul Absolute Eos (auto) 0.1 (0-0.6) 10^3/ul Absolute Basos (auto) 0.2 (0-0.2) 10^3/ul Absolute Nucleated RBC 0.0 10^3/ul Nucleated RBC % 0.2 INR (Anticoag Therapy) 1.07 (0.82-1.09) Sodium 133 L (135-145) mmol/L Potassium 5.0 (3.5-5.0) mmol/L Chloride 99 L (101-111) mmol/L Carbon Dioxide 27 (22-32) mmol/L Anion Gap 7 (2-11) mmol/L BUN 18 (6-24) mg/dL Creatinine 1.05 (0.67-1.17) mg/dL Est GFR ( Amer) 82.9 (>60) Est GFR (Non-Af Amer) 68.5 (>60) BUN/Creatinine Ratio 17.1 (8-20) Glucose 121 H (70-100) mg/dL Calcium 9.4 (8.6-10.3) mg/dL Total Bilirubin 1.00 (0.2-1.0) mg/dL AST 45 H (13-39) U/L ALT 46 (7-52) U/L Alkaline Phosphatase 84 (34-104) U/L Total Protein 6.8 (6.4-8.9) g/dL Albumin 4.0 (3.2-5.2) g/dL Globulin 2.8 (2-4) g/dL Albumin/Globulin Ratio 1.4 (1-3) Result Diagrams: 06/01/19 10:39 06/01/19 10:39 Lab Statement: Any lab studies that have been ordered have been reviewed, and results considered in the medical decision making process. Lower Extremity Course/Dx - Course Course Of Treatment: This patient is evaluated for left hamstring injury which occurred 2 days ago. Since that time he has been using a walker. He does have a recent history of abnormal blood work and is being seen by Dr. Weinstein. Labs obtained: Shows a slightly elevated white count with an elevated RBC. Normal H &H. Thrombocytosis at 755. This has been trending upward over the past year. H&H 2 weeks ago 19.1 and 57, today 16.[address] of the lower extremity was obtained which shows findings suggestive of a hematoma in the proximal left hamstring muscles. Recommend MRI without contrast for further evaluation. Patient remained in Lipitor, however with a walker. Discussed treatment options with the patient as well as pain control. Discussed case with Dr. Weinstein who will see the patient either tomorrow or Thursday as a follow- up. As pt appears to be in little distress and continues to be ambulatory, he will be DCd with f/u to hematology and I have recommended he call PCP for evaluation. May need a non-emergency outpatient MRI. Strict return precautions are given to this patient and he is prescribed tramadol. He will discontinue aspirin. He will use heat, elevation and wrap the area. He understands to return to the ED for worsening pain, inability to walk, pain out of proportion, fevers, worsening discoloration throughout or numbness or tingling. - Diagnoses Differential Diagnosis/HQI/PQRI: Positive: Contusion, Sprain, Strain, Other - tendon rupture Provider Diagnoses: Hematoma - Physician Notifications Discussed Care Of Patient With: Yovanny Weinstein Instructed by Provider To: Have Pt Call For Appt. - pt will follow up tmw or next day Discharge ED - Sign-Out/Discharge Documenting (check all that apply): Patient Departure - Discharge Plan Condition: Good Disposition: HOME Prescriptions: traMADol TAB* [Ultram*] 50 mg PO Q8H PRN #16 tab MDD 4 PRN Reason: Pain Patient Education Materials: Hematoma (ED) Referrals: Fernando Larios MD [Primary Care Provider] - Additional Instructions: Tylenol 650mg four times daily If symptoms are not well controlled with Tylenol, please take Tramadol in addition (up to four times daily) The best symptom control will be if you take these intermittently (every 3 hours ) If you take Tramadol and feel you may be becoming constipated, add on a SENNA TAB (over the counter) once at bedtime Commonly, a leg hematoma is treated with: Now that it has been over 48 hours, I recommend heat only and no ice light compression with a wrapped bandage may help heat for 10 minutes three times daily following the injury to increase blood flow Please follow up with Dr. Weinstein either tomorrow or Thursday I recommend you call your PCP as well for a follow up as you MAY require a MRI. If you develop any worsening symptoms, pain, fevers, inability to walk with assistance or numbness to your lower extremity - return to the ED - Billing Disposition and Condition Condition: GOOD Disposition: Home - Attestation Statements Provider Attestation: I was available for consult. This patient was seen by the RAYMOND. The patient was not presented to, seen by, or examined by me. Jesus Huber MD
== END 2019-06-01 12:34 | disposition home or self-care (01) ==
LOC: ED 08:35
DX: S70.12XA Contusion of left thigh, initial encounter (principal); X58.XXXA Exposure to other specified factors, initial encounter; Y93.01 Activity, walking, marching and hiking; Y92.214 College as the place of occurrence of the external cause; I10 Essential (primary) hypertension; Z79.82 Long term (current) use of aspirin; Z86.73 Personal history of transient ischemic attack (TIA), and cerebral infarction without residual deficits
CPT/HCPCS: 36415; 80053; 85025; 85610; 99283; A9270-GY

== ENCOUNTER 2019-07-02 03:06 | Emergency (ER) | payer MEDICARE, BC ==
--- OUTSIDE RECORDS SUMMARY | 2019-07-02 03:25 | XMS REPORT | Continuity of Care Document ---
:1940 External Reference #:[id number] Author Name Fernando Larios M.D. Address [address] [place] [address] Care Team Providers Name Role Phone Amadou Bower MD - Surgery Care Team Information Radiation Engineer [phone] Jensen Osborn MD - Cardiovascular Care Team Information Radiation Engineer Disease Amadou Foreman - Cardiovascular Disease Care Team Information Radiation Engineer Problems Active Problems Provider Date Benign essential hypertension Fernando Larios M.D. 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 Onset: obstruction Cerebrovascular disease Fernando Larios M.D. Onset: 04/04/2013 Actinic keratosis Fernando Larios M.D. Onset: 01/03/2019 Candidiasis of skin and nail Fernando Larios M.D. Onset: 06/08/2019 Open wound of hip AND thigh with tendon Fernando Larios M.D. Onset: 2019 involvement Polycythemia vera (clinical) Fernando Larios M.D. Onset: 06/08/2019 Acute pharyngitis Fernando Larios M.D. Onset: 02/19/2019 [...] Medications SIG Qnty Indications Ordering Date Provider Ramipril take one capsule 90caps Tuan Ibrahim 05/24/2019 5mg Capsules by mouth Fernanda Husain Ketoconazole apply to affected 60gm B37.2 Tuan JohnnieRosalina 03/26/2019 2% Cream area groin twice MD Quique a day Diazepam 1 by mouth four 90tabs Fernando FRosalina 06/21/2018 2mg Tablets times a day as Fernanda Larios needed Vitamin B-12 CR 1 po qd 100tabs Fernando FRosalina 08/04/2011 1000mcg Fernanda Larios Tablets ER Potassium Chloride take 1 tablet by 90tabs Fernando Calzada 06/10/2010 Leah ER mouth once daily Fernanda Larios 20Meq Tablets ER Vitamin D-3 1 po qd 30tabs Unknown 4000Unit Tablets History Medications Fluconazole 300mg orally once a 6tabs B37.2 Fernando Calzada 05/09/2019 - 100mg Tablets week, repeat in one Fernanda Larios 06/08/2019 week. Cipro 1 by mouth twice a 14tabs Fernando Calzada 02/19/2019 - 250mg Tablets day x 7 d Fernanda Larios 03/26/2019 Uroxatral 1 by mouth every 60tabs Fernando Calzada 01/28/2019 - 10mg Tablets ER day Fernanda Larios 02/19/2019 24HR Note needs staylock Fernando Calzada 01/28/2019 - bradford stabilization Fernanda Larios 02/19/2019 device Oxycodone-Acetaminophen take one tablet by 30tabs Fernando Calzada 01/17/2019 - mouth every 6 hours Fernanda Larios 02/19/2019 5-325mg Tablets as needed - maximum daily dose of 4 per day Bactrim DS 1 by mouth twice a 20tabs Fernando Calzada 01/11/2019 - 800-160mg day Fernanda Larios 02/19/2019 Tablets Tobramycin instill 1 drop into 5ml Fernando Zheng 01/03/2019 - 0.3% Solution affected eye every Fernanda Larios 02/19/2019 4 hours for infection Augmentin 1 by mouth twice a 14tabs Fernando Calzada 01/03/2019 - 875-125mg Tablets day x 7 days Fernanda Larios 01/10/2019 Polymyxin B instill 2 drops 10ml H00.11 Gloster 01/01/2019 - Sulfate/Trimethoprim right eye qid x 5 [facility], [facility] 01/03/2019 Sulfate days, ind: [address]-3.1Unit/ML-% chalazion, Solution conjunctivitis Physical Therapy treatment and M54.5 Arlyn Bar 12/28/2018 - evaluation low back Fernanda 01/03/2019 pain Methylprednisolone dose pack as 1tabs M54.5 Gloster 12/22/2018 - 4mg instructed [facility] 12/28/2018 Tablets Medications Administered in Office Medication SIG Qnty Indications Ordering Provider Date Injection Subcutaneous Or Unknown 12/12/2017 Intramuscular Injection H1N1 MDCR vaccine any route Fernando Larios M.D. 06/18/2009 Injection Injection Subcutaneous Or Carlo Jordan M.D. 07/04/2003 Intramuscular Injection Immunizations CPT Code Status Date Vaccine Reaction Lot # 76841 Given 12/11/2018 Influenza Vac, Quadriv[place], [place] [address] Given 05/26/2018 Zoster (Shingles) Vaccine (HZV), #2 Recombinant, Subunit, Adjuvanted 55652 Given 12/17/2017 Influenza Vac, Quadriv[place], [place] [address] Given 01/16/2017 High-Dose, Influenza Virus [id number] Vacccine-fluzone 65 and older 72466 Given 01/14/2016 High-Dose, Influenza Virus [id number] Vacccine-fluzone 65 and older 53121 Given 01/12/2015 Pneumococcal Conjugate Vacc-13 [id number] 37084 Given 01/12/2015 High-Dose, Influenza Virus [id number] Vacccine-fluzone 65 and older 89625 Given 01/09/2014 High-Dose, Influenza Virus [id number] Vacccine-fluzone 65 and older 31125 Given 04/04/2013 Tdap Tetanus, W Pertussis [id number] 94103 Given 02/26/2013 Preservative free flu 3 yrs+ and older [id number] Given 01/09/2011 Split Influenza Medicare: Fluzone 17149 Given 12/21/2009 DO Not Use Split Influenza Virus [id number] Vaccine 98983 Given 03/05/2009 Pneumococcal Immunization [id number] 77598 Given 02/08/2007 DO Not Use Split Influenza Virus [id number] Vaccine 10991 Given 10/08/2006 Zostivax [id number] 89264 Given 02/03/2005 DO Not Use Split Influenza Virus Vaccine 51083 Given 06/06/2003 Pneumococcal Immunization 40494 Given 06/06/2003 Td Immunization, For Use In Individuals 7 Years Or Older 16664 Given 06/06/2003 DT Immunization 41561 Given 03/02/2003 DO Not Use Split Influenza Virus Vaccine 81589 Given 03/02/2003 DO Not Use Split Influenza Virus Vaccine 11217 Given 01/27/2002 DO Not Use Split Influenza Virus Vaccine 41179 Given 03/01/2001 DO Not Use Split Influenza Virus Vaccine 75009 Given 02/07/2000 DO Not Use Split Influenza Virus Vaccine 94224 Given 01/28/1999 Whole Influenza Virus Vaccine 94826 Given 01/28/1999 DO Not Use Split Influenza Virus Vaccine 44189 Given 02/07/1998 Influenza Immunization 92572 Given 01/12/1997 Influenza Immunization 96008 Given 02/13/1993 Td Immunization, For Use In Individuals 7 Years Or Older Vital Signs Date Vital Result Comment 06/08/2019 9:21am Heart Rate 84 /min Body Temperature 97.2 F Height 70 inches 5'10" per pt Weight 231.00 lb BMI (Body Mass Index) 33.1 kg/m2 05/24/2019 1:53pm BP Systolic 146 mmHg BP Diastolic 86 mmHg Heart Rate 80 /min Body Temperature 97.9 F Respiratory Rate 16 /min Height 70 inches 5'10" per pt Results Test Acquired Date Facility Test Result H/L Range Note CBC Electronic (Fma New) 06/08/2019 [facility] WBC 9.66 4.0-10.0 (607)- - RBC 5.26 3.93-6.0 Hemoglobin (Fma/CMC/CTX) 15.7 g/dL 12.0-17.0 Hematocrit (Fma/CMC/CTX) 48.2 % 35.0-50.0 Mean Corpuscular Vol 91.6 fL 80-95 Mean Corpuscular Hemoglobin 29.8 pg 25.6-32.2 Mean Corpuscular Hemo Concen 32.6 g/dL 32.2-36.0 Platelets 734 10^3/ul High 163-400 RDW-CV 14.6 High 11.6-14.4 Mean Platelet Volume 8.8 fL 8.0-12.4 Absolute Neutrophils BLD 7.28 High 1.56-6.13 Absolute Lymphocytes 0.96 Low 1.18-3.74 Absolute Monocytes BLD Auto 0.99 High 0.24-0.82 Absolute Eos Blood 0.18 0.04-0.54 Absolute Basophils 0.11 High 0.01-0.08 Neutrophil % 0.14 % Low 34.0-70.0 Lymph% 75.5 % High 20.0-52.0 Monocytes % 9.9 % 5.0-12.0 Eos % 10.2 % High 0.7-7.0 Basophil% 1.9 % High 0-1.2 CBC Auto Diff 06/03/2019 [facility] White Blood Count 10.2 10^3/uL Normal 3.5- 10.8 Red Blood Count 4.90 10^6/uL Normal 4.18-5.48 Hemoglobin 15.3 g/dL Normal 14.0-18.0 Hematocrit 45 % Normal 42-52 Mean Corpuscular Volume 92 fL Normal 80-94 Mean Corpuscular Hemoglobin 31 pg Normal 27-31 Mean Corpuscular HGB Conc 34 g/dL Normal 31-36 Red Cell Distribution Width 15 % Normal 10-15 Platelet Count 766 10^3/uL High 150-450 Mean Platelet Volume 7.1 fL Low 7.4-10.4 Abs Neutrophils 7.4 10^3/uL Normal 1.5-7.7 Abs Lymphocytes 1.3 10^3/uL Normal 1.0-4.8 Abs Monocytes 1.0 10^3/uL High 0-0.8 Abs Eosinophils 0.4 10^3/uL Normal 0-0.6 Abs Basophils 0.1 10^3/uL Normal 0-0.2 Abs Nucleated RBC 0.0 10^3/uL Granulocyte % 72.5 % Lymphocyte % 12.5 % Monocyte % 10.1 % Eosinophil % 3.9 % Basophil % 1.0 % Nucleated Red Blood Cells % 0.1 Manual Differential 06/03/2019 [facility] Immature Granulocytes 3.0 % Normal 0- 9 Neutrophil % 74.0 % Band % 3.0 % Normal 0-8 Lymphocytes % 9.0 % Monocytes % 6.0 % Eosinophils % 2.0 % Basophil % 1.0 % Variant Lymph % 5.0 % Normal 0-6 RBC Morphology Normal Normal Von Willebrand Disease 06/03/2019 [facility] Coagulation F VIII 179 % 55 - 200 1 Profile Activity von Willebrand Factor Antigen 208 % Abnormal 55 - 200 2 von Willebrand Factor Activity 147 % 55 - 200 3 von Willebrand Disease Interpr See Comment 4 Laboratory test 06/03/2019 [facility] Pathologist Review (SEE NOTE) 5 finding CBC Auto Diff 06/01/2019 [facility] White Blood Count 14.4 10^3/uL High 3.5- 10.8 Red Blood Count 5.51 10^6/uL High 4.18-5.48 Hemoglobin 16.9 g/dL Normal 14.0-18.0 Hematocrit 51 % Normal 42-52 Mean Corpuscular Volume 92 fL Normal 80-94 Mean Corpuscular Hemoglobin 31 pg Normal 27-31 Mean Corpuscular HGB Conc 33 g/dL Normal 31-36 Red Cell Distribution Width 15 % Normal 10-15 Platelet Count 755 10^3/uL High 150-450 Mean Platelet Volume 7.3 fL Low 7.4-10.4 Abs Neutrophils 12.1 10^3/uL High 1.5-7.7 Abs Lymphocytes 0.8 10^3/uL Low 1.0-4.8 Abs Monocytes 1.3 10^3/uL High 0-0.8 Abs Eosinophils 0.1 10^3/uL Normal 0-0.6 Abs Basophils 0.2 10^3/uL Normal 0-0.2 Abs Nucleated RBC 0.0 10^3/uL Granulocyte % 84.0 % Lymphocyte % 5.2 % Monocyte % 8.8 % Eosinophil % 0.8 % Basophil % 1.2 % Nucleated Red Blood Cells % 0.2 Inr/Protime 06/01/2019 [facility] Inr 1.07 Normal 0.82-1.09 6 Comp Metabolic Panel 06/01/2019 [facility] Sodium 133 mmol/L Low 135-145 Potassium 5.0 mmol/L Normal 3.5-5.0 Chloride 99 mmol/L Low 101-111 Co2 Carbon Dioxide 27 mmol/L Normal 22-32 Anion Gap 7 mmol/L Normal 2-11 Glucose 121 mg/dL High 70-100 Blood Urea Nitrogen 18 mg/dL Normal 6-24 Creatinine 1.05 mg/dL Normal 0.67-1.17 BUN/Creatinine Ratio 17.1 Normal 8-20 Calcium 9.4 mg/dL Normal 8.6-10.3 Total Protein 6.8 g/dL Normal 6.4-8.9 Albumin 4.0 g/dL Normal 3.2-5.2 Globulin 2.8 g/dL Normal 2-4 Albumin/Globulin Ratio 1.4 Normal 1-3 Total Bilirubin 1.00 mg/dL Normal 0.2-1.0 Alkaline Phosphatase 84 U/L Normal 34-104 Alt 46 U/L Normal 7-52 Ast 45 U/L High 13-39 Egfr Non- 68.5 >60 Egfr 82.9 >60 7 Myeloprolif Neoplasm With 05/20/2019 [facility] MPNR Result see interpretati <SEE 8 RFX NOTE> MPNR Final Diagnosis See Comment 9 Laboratory test 05/20/2019 [facility] Erythropoietin 1.5 mIU/mL Abnormal 2.6 - 10 finding 18.5 BCR/Abl P190 05/20/2019 [facility] BCR/Abl p190 Result see interpretati 11 PCR <SEE NOTE> BCR/Abl PCR Specimen Whole Blood BCR/Abl p190 Final Diagnosis See Comment 12 BCR/Abl P210 PCR 05/20/2019 [facility] BCR/Abl p210 Result see interpretati <SEE 13 NOTE> BCR/Abl PCR Specimen Blood BCR/Abl p210 Final Diagnosis See Comment 14 Laboratory test finding 05/20/2019 [facility] Erythrocyte Sed Rate 0 mm/Hr Normal 0-19 Retic Count 05/20/2019 [facility] Retic Count 1.2 % Normal 0.5-1.5 Corrected Retic Count 1.5 % Normal 0.5-1.5 Maturation Factor Retic 1.0 Retic Index 1.50 Mean Retic Volume 120.1 Immature Retic Fraction 0.51 RBC Retic Count 6.19 10^6/uL High 4.18-5.48 Hematocrit for Retic CNT 57 % High 42-52 CBC Auto Diff 05/20/2019 [facility] White Blood Count 8.5 10^3/uL Normal 3.5- 10.8 Red Blood Count 6.19 10^6/uL High 4.18-5.48 Hemoglobin 19.1 g/dL High 14.0-18.0 Hematocrit 57 % High 42-52 Mean Corpuscular Volume 92 fL Normal 80-94 Mean Corpuscular Hemoglobin 31 pg Normal 27-31 Mean Corpuscular HGB Conc 34 g/dL Normal 31-36 Red Cell Distribution Width 15 % Normal 10-15 Platelet Count 715 10^3/uL High 150-450 Mean Platelet Volume 7.3 fL Low 7.4-10.4 Abs Neutrophils 6.2 10^3/uL Normal 1.5-7.7 Abs Lymphocytes 1.4 10^3/uL Normal 1.0-4.8 Abs Monocytes 0.7 10^3/uL Normal 0-0.8 Abs Eosinophils 0.3 10^3/uL Normal 0-0.6 Abs Basophils 0.0 10^3/uL Normal 0-0.2 Abs Nucleated RBC 0.0 10^3/uL Granulocyte % 72.3 % Lymphocyte % 16.2 % Monocyte % 8.0 % Eosinophil % 3.2 % Basophil % 0.3 % Nucleated Red Blood Cells % 0.2 Laboratory test finding 05/20/2019 [facility] Ferritin 20.9 ng/mL Low 24-336 Iron & Iron Binding Capacity 05/20/2019 [facility] Iron 85 g/dL Normal 50-212 Unsaturated Iron Binding < 451 g/dL Total Iron Binding Capacity 466 g/dL High 250-450 Transferrin 333 mg/dL Normal 203-362 % Iron Saturation 18 % Normal 15-55 Laboratory test 05/20/2019 [facility] CRP High 1.31 mg/L <2.00 finding Sensitivity CBC + Hematology 05/10/2019 [facility] WBC 9.3 3.4-10.[address] x10E3/[place] [address] (607)- - RBC 5.96 x10E6/uL High 4.14-5.80 Hemoglobin 18.5 g/dL High 13.0-17.7 Hematocrit 54.3 % High 37.5-51.0 MCV 91 fL 79-97 MCH 31.0 pg 26.6-33.0 MCHC 34.1 g/dL 31.5-35.7 RDW 15.1 % 11.6-15.4 Immature Cells TNP NRBC TNP Neutrophils 63 % Not Estab. Lymphs 24 % Not Estab. Monocytes 8 % Not Estab. Eos 4 % Not Estab. Basos 1 % Not Estab. Neutrophils Absolute 5.9 x10E3/uL 1.4-7.0 Lymphs (Absolute) 2.2 x10E3/uL 0.7-3.1 Monocytes(Absolute) 0.7 x10E3/uL 0.1-0.9 Eos (Absolute Value) 0.4 x10E3/uL 0.0-0.4 Baso(Absolute) 0.1 x10E3/uL 0.0-0.2 Differential Comment TNP RBC Comment Macrocytes prese <SEE NOTE> Normal 15 Platelet Comment See Comment: Adequate 16 Comprehensive Metabolic 05/10/2019 [facility](fma) Sodium 135 mEq/L 134-149 Prof Potassium 5.6 mEq/L High 3.6-5.5 17 Chloride 99 mEq/L 94-112 Carbon Dioxide 26 mEq/L 21-32 Glucose 94 mg/dL 70-105 BUN 13 mg/dL 6-26 Creatinine 0.9 mg/dL 0.6-1.4 BUN/Creat Ratio 14.4 CALC 8.0-36.0 Calcium 9.9 mg/dL 8.9-10.6 Total Protein 6.8 g/dL 6.4-8.3 Albumin 4.5 g/dL 3.8-5.5 Globulin 2.3 g/dL 2.0-4.8 A/G Ratio 2.0 CALC 0.6-2.3 Alk. Phosphatase 75 U/L 22-95 Alt (SGPT) 32 U/L 7-35 Ast (Sgot) 40 U/L High 5-34 18 Total Bilirubin 0.7 mg/dL 0.2-1.3 GFR Non- >60 ml/min/1.73m^ >=60 GFR >60 ml/min/1.73m^ >=60 Laboratory test 05/09/2019 [facility] Fungal Cult SEE RESULT 19 finding Other Sources BELOW Laboratory test 05/09/2019 [facility] Fungal Cult SEE RESULT 20 finding Other Sources BELOW Laboratory test 05/09/2019 [facility] Fungal Cult SEE RESULT 21 finding Other Sources BELOW CBC Electronic 05/07/2019 [facility] WBC 7.61 4.0-10. (a New) (607)- - 0 RBC 6.32 High 3.93-6.0 Hemoglobin (Fma/CMC/CTX) 19.2 g/dL High 12.0-17.0 Hematocrit (Fma/CMC/CTX) 58.4 % High 35.0-50.0 Mean Corpuscular Vol [...] 1.2 % 0-1.2 Ua - Non Micro ([facility]) 02/23/2019 [facility] Appearance clear (607)- - Color yellow Glucose, Urine (a/CMC/CTX) neg Bilirubin neg Ketones neg SP Grav 1.015 Blood neg PH 7.0 Protein neg Urobil 0.2 Nitrite neg Leukocytes (a/[facility]) neg Urine Culture And 02/19/2019 [facility] Urine Culture SEE RESULT 22 Sensitivities BELOW Ua - Micro ([facility]) 02/19/2019 [facility] medicine Appearance cloudy (607)- - Color yellow Glucose, Urine (a/CMC/CTX) neg Bilirubin neg Ketones neg SP Grav 1.010 Blood trace-intact PH 6.5 Protein neg Urobil 0.2 Nitrite positive Leukocytes (a/[facility]) large Hyaline - /Lpf Granular - /Lpf WBC (Fma,[facility]) >50 RBC 1-2 Mucus (Fma/CBC/[facility]) small amt /Lpf Epith - /Lpf Bacteria 2++ /Hpf Amorphous (Fma/CMC/[facility]) - /Lpf Crystals, Fluid (Fma/CMC/CTX) - Z#Comments - Laboratory test 02/19/2019 [facility] Quickstrep NEG Negative finding (607)- - Ict-Hemoccult 01/21/2019 [facility] Ict Hemoccult (1) 01/10/19 ([facility])Fma Screeni (607)- - Neg. Ict Hemoccult-(2) 01/11/19 Neg. Ict-Hemoccult (3) 01/12/19 Neg. Ova & Parasites Full 01/18/2019 [facility] Parasitic Exam, See Comment 23 Result O P: 01/18/2019 [facility] O P: SEE RESULT 24 Giardia/Cryptospor Giardia/Cryptospo BELOW Screen r Screen Laboratory test 01/18/2019 [facility] Stool Culture SEE RESULT 25, 26 finding BELOW Urine Culture And 01/18/2019 [facility] Urine Culture SEE RESULT 27 Sensitivities BELOW Laboratory test 01/18/2019 [facility] Magnesium 1.8 mg/dL Low 1.9-2.7 finding Lipase 17 U/L Normal 11.0-82.0 Liver Function Panel 01/18/2019 [facility] Total Protein 6.4 g/dL Normal 6.4- 8.9 Albumin 3.9 g/dL Normal 3.2-5.2 Globulin 2.5 g/dL Normal 2-4 Albumin/Globulin Ratio 1.6 Normal 1-3 Total Bilirubin 0.40 mg/dL Normal 0.2-1.0 Direct Bilirubin 0.10 mg/dL Normal 0.03-0.18 Indirect Bilirubin 0.3 mg/dL Normal 0.3-1.0 Alkaline Phosphatase 82 U/L Normal 34-104 Alt 49 U/L Normal 7-52 Ast 31 U/L Normal 13-39 Basic Metabolic Panel 01/18/2019 [facility] Sodium 129 mmol/L Low 135-145 Potassium 4.7 mmol/L Normal 3.5-5.0 Chloride 98 mmol/L Low 101-111 Co2 Carbon Dioxide 25 mmol/L Normal 22-32 Anion Gap 6 mmol/L Normal 2-11 Glucose 115 mg/dL High 70-100 Blood Urea Nitrogen 11 mg/dL Normal 6-24 Creatinine 0.79 mg/dL Normal 0.67-1.17 BUN/Creatinine Ratio 13.9 Normal 8-20 Calcium 9.0 mg/dL Normal 8.6-10.3 Egfr Non- 95.1 >60 Egfr 115.1 >60 28 Laboratory test finding 01/18/2019 [facility] Lactic Acid 1.2 mmol/L Normal 0.5- 2.0 29 Urinalysis Profile 01/18/2019 [facility] Urine Color Straw Urine Appearance Clear Urine Specific Piru 1.002 Low 1.010-1.030 Urine pH 6.0 Normal 5-9 Urine Urobilinogen Negative Negative Urine Ketones Negative Negative Urine Protein Negative Negative Urine Leukocytes Trace Abnormal Negative Urine Blood 3+ Abnormal Negative Urine Nitrite Negative Negative Urine Bilirubin Negative Negative Urine Glucose Negative Negative Urine White Blood Cell Trace(0-5/hpf) Absent Urine Red Blood Cell Trace(0-2/hpf) Absent Urine Bacteria Absent Absent CBC Auto Diff 01/18/2019 [facility] White Blood Count 7.7 10^3/uL Normal 3.5- [...] Cells % 0.1 Urine Culture And 01/14/2019 [facility] Urine Culture SEE RESULT 30 Sensitivities BELOW Laboratory test 01/14/2019 [facility] Blood Culture SEE RESULT 31 finding BELOW CBC Auto Diff 01/14/2019 [facility] White Blood 9.0 10^3/uL Normal 3.5-10.8 Count [...] Blood Cells % 0.0 Urinalysis Profile 01/14/2019 [facility] Urine Color Straw Urine Appearance Clear Urine Specific Piru 1.003 Low 1.010-1.030 Urine pH 5.0 Normal [...] Bacteria Absent Absent Comp Metabolic Panel 01/14/2019 [facility] Sodium 129 mmol/L Low 135-145 Potassium 4.2 [...] Egfr Non- 70.0 >60 Egfr 84.7 >60 32 Laboratory test 01/14/2019 [facility] Lactic Acid 0.8 mmol/L Normal 0.5-2.0 33 finding Ua - Non Micro 01/11/2019 [facility] Appearance CLEAR (Fma) (607)- - Color YELLOW Glucose, Urine (Fma/CMC/CTX) NEG Bilirubin NEG Ketones TRACE SP Grav 1.015 Blood NEG PH 6.0 Protein NEG Urobil 0.2 Nitrite NEG Leukocytes (Fma/[facility]) NEG Comprehensive Metabolic 01/03/2019 [facility](a) Sodium 135 mEq/L 134-149 Prof Potassium 4.7 mEq/L 3.6-5.5 Chloride 103 mEq/L 94-112 Carbon Dioxide 23 mEq/L 21-32 Glucose 108 mg/dL High 70-105 34 BUN 14 mg/dL 6-26 Creatinine 0.8 mg/dL [...] >60 ml/min/1.73m^ >=60 Lipid Profile 01/03/2019 [facility]ings(a) Cholesterol 188 mg/dL 120- 200 Triglycerides 138 mg/dL 30-200 HDL Cholesterol 60 mg/dL 30-70 LDL (Calculated) 100 CALC 0-129 VLDL Cholesterol 28 mg/dL 0-50 HDL Risk Factor 3.1 CALC 0.0-4.4 Laboratory test 01/03/2019 [facility]) Free T4 1.27 ng/dL 0.75- 1.54 finding TSH 1.86 mIU/L 0.50-6.00 PSA 0.8 ng/mL 0.0-4.0 CBC Electronic Fma 01/03/2019 Alex Cummings([facility]) WBC 8.2 x10^3/UL 4.0- 10.0 RBC 5.43 x10^6/UL 3.93-6.00 HGB 16.7 g/dL 12.0-17.0 HCT 50 % 35-50 MCV 92.4 fL 80.0-95.0 MCH 30.8 pg 25.6-32.2 MCHC 33.3 g/dL 32.2-36.0 RDW-CV 15.4 % High 11.6-14.4 PLT 574 x10^3/UL High 163-400 MPV 9.0 fL Low 9.4-12.4 Meghan# 5.50 x10^3/UL 1.56-6.13 Lymph# 1.48 x10^3/UL 1.18-3.74 Potter# 0.76 x10^3/UL 0.24-0.82 Eos # 0.4 x10^3/UL 0.0-0.5 Baso # 0.06 x10^3/UL 0.01-0.08 Meghan% 67.0 % 34.0-70.0 Lymph % 18.0 % Low 20.0-52.0 Potter% 9.3 % 5.0-12.0 Eos% 4.4 % 0.7-7.0 Baso% 0.7 % 0.1-1.2 Laboratory test finding 12/28/2018 [facility] Quickstrep negative Negative (607)- - 1 ADDITIONAL INFORMATION This test has been modified from the steam trap man's instructions. Its performance characteristics were determined by [facility] in a manner consistent with CLIA requirements. This test has not been cleared or approved by the U.S. Food and Drug Administration. 2 ADDITIONAL INFORMATION This test has been modified from the steam trap man's instructions. Its performance characteristics were determined by [facility] in a manner consistent with CLIA requirements. This test has not been cleared or approved by the U.S. Food and Drug Administration. 3 ADDITIONAL INFORMATION This test has been modified from the steam trap man's instructions. Its performance characteristics were determined by [facility] in a manner consistent with CLIA requirements. This test has not been cleared or approved by the U.S. Food and Drug Administration. Test Performed by: [place] [address] Manager Environmental: Yoni Ramirez M.D. Ph.D.; CLIA# [id number] 4 RESULT: See von Willebrand Disease Interp. 5 Persistent thrombocytosis noted. No blasts are seen. Clinical correlation and additional studies as warranted. Reviewed by Dr. 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 JAK2 V617F mutated DNA was detected and measured at 12% of total JAK2 DNA. JAK2 V617F mutation is found with high frequency in [place] chromosome-negative myeloproliferative neoplasms (>95% in polycythemia vera and approximately 50-60% in primary myelofibrosis and essential thrombocythemia). It can also occur in other myeloid neoplasms, such as refractory anemia with ring sideroblasts associated with marked thrombocytosis (RARS-T) and rarely in myelodysplastic syndrome, chronic myelomonocytic leukemia, atypical chronic myeloid leukemia and acute myeloid leukemia. Clinicopathologic correlation is recommended for a definitive diagnosis. The precision of JAK2 mutation percentage measurement is such that values 2 times higher or lower than the reported value are considered equivalent. No further testing for CALR or MPL mutation was performed as it is not indicated per MPNR test algorithm. See test catalogue for additional information: [email or web address]. Note: Starting from 05/01/2015, the calculation and reporting value of [id number]/total JAK2% is changed to more accurately reflect the true [id number] allele burden. Higher values are generally expected and for levels below 80% (currently reported with new calculation), 1-5 fold increase from the prior calculation is expected. The testing method is not changed, however the limit of analytic sensitivity is changed to 0.06%. Please contact the [facility] at [phone] if you have questions or concerns. Method summary - JAK2 V617F analysis: Quantitative, allele-specific polymerase chain reaction (PCR) assay was performed using extracted genomic DNA to evaluate for the point mutation causing JAK2 V617F. The analytic sensitivity of this assay has been determined at 0.06% (see [facility] Interpretive Handbook for method details). Signing Pathologist: Amadou Elmore M.D. ADDITIONAL INFORMATION This test was developed and its performance characteristics determined by [facility] in a manner consistent with CLIA requirements. This test has not been cleared or approved by the U.S. Food and Drug Administration. Test Performed by: [facility] [address] [place] [address] Manager Environmental: Yoni Ramirez M.D. Ph.D.; CLIA# [id number] 10 Test Performed by: [facility] [address] [place] [address] Manager Environmental: Yoni Ramirez M.D. Ph.D.; CLIA# [id number] 11 see interpretation PDF Report available at: [email or web address] 12 Peripheral blood, BCR/ABL1 mRNA level analysis (p190 fusion form): Negative. No BCR/ABL1 p190 mRNA transcripts were detected (%BCR/ABL1(p190):ABL1=0). NOTE: Please correlate this result with the original (diagnostic) BCR-ABL1 mRNA transcript type identified in this patient to ensure that the ordered test is correct and appropriate for the clinical indication. This assay specifically detects the p190 (e1-a2) BCR-ABL1 transcript isoform. It does not detect the BCR-ABL1 p210 (e13/e14-a2) transcript (prevalent in chronic myeloid leukemia and in some cases of B-lymphoblastic leukemia), or other rare BCR-ABL1 transcript isoforms. Method summary: BCR/ABL1 , p190 fusion: BCR/ABL1 p190 mRNA transcript level was evaluated using quantitative, reverse quarantine inspector PCR. The detection limit for this assay is 0.01%. See [facility] [employer] Test Catalog for additional method details. The assay detects the most common p190 fusion form (e1/a2), but does not detect other fusions, including the p210, which is the most common form found in chronic myelogenous leukemia. This assay should only be ordered for monitoring patients with a previously identified p190 fusion form. Test BADX (BCR/ABL1 mRNA detection, RT-PCR, Quantitative, Diagnostic) should be ordered if the test is being performed in a diagnostic setting to identify the BCR/ABL1 fusion form and test BCRAB (BCR/ABL1, p210, mRNA detection, RT-PCR, Quantitative, Monitoring CML) should be ordered if this patient is being monitored for a known p210 fusion form (e13a2 or e14a2). The reproducibility of this assay is such that results within 0.5 log should be considered equivalent. Trends in the level of BCR/ABL1 mRNA should be followed and clinically significant changes verified with a subsequent specimen. Please contact the [facility] at [phone] with questions or if additional testing is required. Signing Pathologist: Nyla Bray M.D. ADDITIONAL INFORMATION This test was developed and its performance characteristics determined by [facility] in a manner consistent with CLIA requirements. This test has not been cleared or approved by the U.S. Food and Drug Administration. Test Performed by: [place] [address] Manager Environmental: Yoni Ramirez M.D. Ph.D.; CLIA# [id number] 13 see interpretation PDF Report available at: [email or web address] 14 Peripheral blood, BCR/ABL1 mRNA level analysis (p210 fusion form): Negative. No BCR/ABL1 p210 mRNA transcripts were detected (%BCR/ABL1(p210):ABL1=0). NOTE: Please correlate this result with the original (diagnostic) BCR-ABL1 mRNA transcript type identified in this patient to ensure that the ordered test is correct and appropriate for the clinical indication. This assay specifically detects the p210 (e13a2 or e14a2) BCR-ABL1 transcript isoform. It does not detect the BCR-ABL1 p190 (e1-a2) transcript (prevalent in B-lymphoblastic leukemia, but may also rarely occur in chronic myeloid leukemia) or other rare BCR-ABL1 transcript isoforms. Signing Pathologist: Nyla Bray M.D. ADDITIONAL INFORMATION Method summary - BCR/ABL1, p210 fusion: The BCR/ABL1 transcript level was evaluated using a quantitative, reverse quarantine inspector PCR. The analytical sensitivity of this assay has been determined at 0.003% (MR 4.5). This assay detects the major breakpoint region-associated common fusion mRNA forms in chronic myelogenous leukemia (e13/a2 and e14/a2), which code for a p210 protein. It is intended for monitoring patients with hematopoietic neoplasms known to carry the p210 fusion form. The assay does not detect other BCR/ABL1 mRNA types, including the e1/a2 transcript (p190 protein) that is commonly present in acute lymphoblastic leukemia. This assay is not intended for use in the diagnostic setting, as it does not detect all BCR/ABL1 mRNA fusion forms. If this has been performed in a diagnostic setting and the result is negative, test: BADX (BCR/ABL mRNA Detection, RT-PCR, Qualitative, Diagnostic) should be ordered to evaluate for all possible fusion forms. Please contact the [facility] at [phone] with questions or if additional testing is required. See the [facility] Interpretive Handbook for method details. The reproducibility of this assay is such that results within 0.5 log should be considered equivalent. Trends in the level of BCR/ABL1 mRNA should be followed carefully and clinically significant changes in BCR/ABL1 mRNA levels during tyrosine kinase inhibitor (TKI) therapy may indicate the presence of acquired BCR/ABL1 kinase domain mutations, which can be further evaluated using the BCR/ABL KDM assay (test: BAKDM). This test was developed and its performance characteristics determined by [facility] in a manner consistent with CLIA requirements. This test has not been cleared or approved by the U.S. Food and Drug Administration. Test Performed by: [place] [address] Manager Environmental: Yoni Ramirez M.D. Ph.D.; CLIA# [id number] 15 Macrocytes present. 16 Platelet count verified by examination of peripheral blood smear. Adequate 17 RESULTS VERIFIED BY REPEAT ANALYSIS 18 RESULTS VERIFIED BY REPEAT ANALYSIS 19 SEE RESULT BELOW Name: RADHA SOTO : [address]: Tuan Lei MD Acct: [id number] Unit: [id number] AGE: 78 Location: [facility] Re05/09/19 SEX: M Status: REG REF SPEC: [id number] MARLON: 05/09/19-1640 [facility] [address]: Tuan Lei MD REQ: [id number] RECD: 05/09/19 STATUS: RES _ [place] [facility] [place] SPD[place]: ORDERED: Fungal - Other COMMENTS: [id number] Procedure Result Reported Site Fungal Cult - Other Sources Preliminary 05/16/19- 1345 ML Fungal Culture No Growth of Mycotic Organisms 1 week * ML - Main Lab . END OF REPORT DEPARTMENT OF PATHOLOGY, [address] [place] [address] Miguel Harmon M.D. Director [facility] # [id number] 20 SEE RESULT BELOW Name: RADHA SOTO : [address]: Tuan Lei MD Acct: [id number] Unit: [id number] AGE: 78 Location: [facility] Re05/09/19 SEX: M Status: REG REF SPEC: [id number] MARLON: 05/09/19-1640 [facility] [address]: Tuan Lei MD REQ: [id number] RECD: 05/09/19 STATUS: RES _ SOURCE: MISC SOURC SPDESC: ORDERED: Fungal - Other COMMENTS: [id number] Procedure Result Reported Site Fungal Cult - Other Sources Preliminary 05/23/19- 1106 ML Fungal Culture No Growth of Mycotic Organisms 2 weeks * ML - Main Lab . END OF REPORT DEPARTMENT OF PATHOLOGY, [address] [place] [address] Miguel Harmon M.D. Director [facility] # [id number] 21 SEE RESULT BELOW Name: RADHA SOTO : [address]: Tuan Lei MD Acct: [id number] Unit: [id number] AGE: 78 Location: [facility] Re05/09/19 SEX: M Status: REG REF SPEC: [id number] MARLON: 05/09/19-[address]: Tuan Lei MD REQ: [id number] RECD: 05/09/19 STATUS: COMP _ [place] [facility] [place] SPDESC: ORDERED: Fungal - Other COMMENTS: [id number] Procedure Result Reported Site Fungal Cult - Other Sources Final 06/06/19- 1030 ML Fungal Culture No Growth of Mycotic Organisms 4 weeks * ML - Main Lab . END OF REPORT DEPARTMENT OF PATHOLOGY, [address] [place] [address] Miguel Harmon M.D. Director [facility] # [id number] 22 SEE RESULT BELOW Name: RADHA SOTO : [address]: Fernando Larios MD Acct: [id number] Unit: [id number] AGE: 78 Location: [facility] Re02/19/19 SEX: M Status: REG REF SPEC: [id number] MARLON: 02/19/19-1030 [facility] [address]: Fernando Larios MD REQ: [id number] RECD: 02/19/19 STATUS:COMP _ SOURCE: URINE SPDESC: ORDERED: Urine Culture COMMENTS: [id number] Urine Source: Random Procedure Result Reported Site Urine Culture Final 02/22/19- 0843 ML Mixed upon extended incubation. Suggest resubmission. * - [facility] . END OF REPORT DEPARTMENT OF PATHOLOGY, [address] [place] [address] Miguel Harmon M.D. Director [facility] # [id number] 23 SOURCE: STOOL PARASITIC EXAMINATION FINAL No parasites seen. Cryptosporidium, Cyclospora, and microsporidia are not readily detected by this method. Single negative specimen does not rule out parasitic infection. Test Performed by: [place] [address] Manager Environmental: Yoni Ramirez M.D. Ph.D.; IA# [id number] 24 SEE RESULT BELOW Name: RADHA SOTO : [address]: Amadou Brown MD Acct: [id number] Unit: [id number] AGE: 78 Location: ED Re01/18/19 SEX: M Status: REG ER SPEC: [id number] MARLON: 01/18/[address]: Myla BECKER REQ: [id number] RECD: 01/18/19 STATUS: JANIE PETE DR: Amadou Larios MD _ SOURCE: STOOL SPDESC: ORDERED: O P: Giar/Crypt Procedure Result Reported [...] . END OF REPORT DEPARTMENT OF PATHOLOGY, [address] [place] [address] Miguel Harmon M.D. Director [facility] # [id number] 25 PLAIN CONTAINER ONLY RECEIVED: PLACE INTO Fon AT 1305 26 SEE RESULT BELOW Name: RADHA SOTO : [address]: Amadou Brown MD Acct: [id number] Unit: [id number] AGE: 78 Location: ED Re01/18/19 SEX: M Status: DEP ER SPEC: [id number] MARLON: 01/18/[address]: Myla BECKER REQ: [id number] RECD: 01/18/19 STATUS: JANIE PETE DR: Amadou Larios MD _ SOURCE: STOOL SPDESC: ORDERED: Stool Culture COMMENTS: PLAIN CONTAINER ONLY RECEIVED: PLACE INTO Fon AT 1305 Procedure Result Reported Site Stool [...] . END OF REPORT DEPARTMENT OF PATHOLOGY, [address] [place] [address] Miguel Harmon M.D. Director [facility] # [id number] 27 SEE RESULT BELOW Name: RADHA SOTO : [address]: Amadou Brown MD Acct: [id number] Unit: [id number] AGE: 78 Location: ED Re01/18/19 SEX: M Status: DEP ER SPEC: [id number] MARLON: 01/18/[address]: Amadou Brown MD REQ: [id number] RECD: 01/18/19 STATUS: JANIE PETE DR: Fernando Larios MD _ SOURCE: URINE SPDESC: ORDERED: Urine Culture Procedure Result Reported Site Urine Culture Final 01/19/19- 1226 ML No Growth (<1,000 CFU/mL) * ML - Main Lab . END OF REPORT DEPARTMENT OF PATHOLOGY, [address] [place] [address] Miguel Harmon M.D. Director [facility] # [id number] 28 Because ethnic data is not always readily [...] 15-29 5 Kidney failure <15 (or dialysis) 29 [facility] Severe Sepsis and Septic Shock Management Bundle Measure requires all lactic acids initially measuring >2.0 mmol/L be repeated. 30 SEE RESULT BELOW Name: RADHA SOTO : [address]: Lucy Brothers MD Acct: [id number] Unit: [id number] AGE: 78 Location: [place] [address] Re01/14/19 SEX: M Status: ADM Marie SPEC: [id number] MARLON: 01/13/19-58 [facility] DR: Gianna Calix MD REQ: [id number] RECD: 01/14/19 STATUS: JANIE PETE DR: Fernando Larios MD _ SOURCE: URINE [facility]: ORDERED: Urine Culture Procedure Result Reported Site Urine Culture Final 01/15/19- 09 ML No Growth (<1,000 CFU/mL) * ML - Main Lab . END OF REPORT DEPARTMENT OF PATHOLOGY, [address] [place] [address] Miguel Harmon M.D. Director [facility] # [id number] 31 SEE RESULT BELOW Name: RADHA SOTO : [address]: Lucy Brothers MD Acct: [id number] Unit: [id number] AGE: 78 Location: [place] [address] Re01/14/19 Dis: 01/16/19 SEX: M Status: DIS IN SPEC: [id number] MARLON: 01/14/19-[address] [facility] [address]: Gianna Calix MD REQ: [id number] RECD: 01/14/19 STATUS: JANIE PETE DR: Fernando Larios MD _ SOURCE: BLOOD,VENO SPDESC: ORDERED: Blood Cult Procedure Result Reported Site Aerobic Culture Bottle Final 01/19/19- 0025 ML No Growth Day 5 Anaerobic Culture Bottle Final 01/19/19- 0025 ML No Growth Day 5 * ML - Main Lab . END OF REPORT DEPARTMENT OF PATHOLOGY, [address] [place] [address] Miguel Harmon M.D. Director [facility] # [id number] 32 Because ethnic data is not always readily [...] 15-29 5 Kidney failure <15 (or dialysis) 33 [facility] Severe Sepsis and Septic Shock Management Bundle Measure requires all lactic acids initially measuring >2.0 mmol/L be repeated. 34 NON-FASTING Procedures Date Code Description Status 01/03/2019 24425 Electrocardiogram Complete Completed 05/01/2015 96358603 Colonoscopy Completed 01/05/2008 [id number] Colonoscopy Completed Medical Devices Description No Information Available Encounters Type Date Location Provider Dx Diagnosis Office Visit 05/24/2019 [facility] Office Tuan Ibrahim R21 Rash and other 2:00p Fernanda Husain nonspecific skin eruption D45 Polycythemia vera Office Visit 05/09/2019 8:20a [facility] Tuan Harrell B37.2 Candidiasis of Office MD Quique skin and nail Office Visit 05/07/2019 11:00a Main Office Lizeth B37.2 Candidiasis of Tere, DENTAL DIRECTOR skin and nail I10 Essential (primary) hypertension R53.1 Weakness Office Visit 04/07/2019 2:30p [facility] Office Lizeth B37.2 Candidiasis of Tere, DENTAL DIRECTOR skin and nail Office Visit 03/26/2019 12:30p [facility] Office Lizeth B37.2 Candidiasis of Tere, DENTAL DIRECTOR skin and nail Office Visit 02/23/2019 9:45a [facility] Office Lizeth N40.0 Benign prostatic Tere, DENTAL DIRECTOR hyperplasia without lower urinry tract symp N39.0 Urinary tract infection, site not specified Office Visit 02/19/2019 9:00a [facility] Office Fernando Calzada N40.0 Benign prostatic Fernanda Larios hyperplasia without lower urinry tract symp J02.9 Acute pharyngitis, unspecified R10.84 Generalized abdominal pain N39.0 Urinary tract infection, site not specified Office Visit 01/28/2019 3:00p [facility] Office Fernando Calzada N40.1 Benign prostatic Fernanda Larios hyperplasia with lower urinary tract symp Office Visit 01/11/2019 6:40p Main Office Fernando Calzada I10 Essential Fernanda Larios (primary) hypertension N41.0 Acute prostatitis Office Visit 01/03/2019 2:00p [facility] Office Fernando Calzada H00.11 Chalazion right Fernanda Larios upper eyelid I10 Essential (primary) hypertension N40.0 Benign prostatic hyperplasia without lower urinry tract symp H10.89 Other conjunctivitis L57.0 Actinic keratosis Z00.00 Encntr for general adult medical exam w/o abnormal findings 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 upper eyelid H11.31 Conjunctival hemorrhage, right eye Office Visit 12/28/2018 3:40p [facility] Office Arlyn Yosvany, J02.9 Acute pharyngitis, M.DRosalina unspecified M54.5 Low back pain Assessments Date Code Description Provider 06/08/2019 D45 Polycythemia vera Fernando Larios M.D. 06/08/2019 I10 Essential (primary) hypertension Fernando Larios M.D. 06/08/2019 B37.2 Candidiasis of skin and nail Fernando Larios M.D. 06/08/2019 S76.322A Laceration of muscle, fascia and tendon Fernando Larios M.D. of the posterior muscle group at thigh level, left thigh, initial encounter 05/24/2019 R21 Rash and other nonspecific skin eruption Tuan Husain M.D. 05/24/2019 D45 Polycythemia vera Tuan Husain M.D. 05/10/2019 I10 Essential (primary) hypertension Fernando Larios M.D. 05/10/2019 I10 Essential (primary) hypertension Lizeth Carranza, [facility] 05/09/2019 B37.2 Candidiasis of skin and nail Tuan Lei MD 05/07/2019 B37.2 Candidiasis of skin and nail Lizethdewey Carranza, [facility] 05/07/2019 I10 Essential (primary) hypertension Lizetheric Carranza, [facility] 05/07/2019 R53.1 Weakness Lizeth Tere, [facility] 04/07/2019 B37.2 Candidiasis of skin and nail Lizetheric Carranza, [facility] 03/26/2019 B37.2 Candidiasis of skin and nail Lizethdewey Carranza, [facility] 02/23/2019 N40.0 Benign prostatic hyperplasia without Lizethsandra Carranza, DENTAL DIRECTOR lower urinary tract symptoms 02/23/2019 N39.0 Urinary tract infection, site not Lizeth Tere, DENTAL DIRECTOR specified 02/19/2019 N40.0 Benign prostatic hyperplasia without Fernando F. Shallish, M.D. lower urinary tract symptoms 02/19/2019 J02.9 Acute pharyngitis, [...] M.D. 01/03/2019 N40.0 Benign prostatic hyperplasia without Fernando Larios M.D. lower urinary tract symptoms 01/03/2019 H10.89 Other conjunctivitis Fernando Larios M.D. 01/03/2019 L57.0 Actinic keratosis Fernando Larios M.D. 01/03/2019 Z00.00 Encounter for general adult medical Fernando Larios M.D. examination without abnormal findings 01/03/2019 Z79.82 half-way (current) use of aspirin Fernando Larios M.D. 01/01/2019 H00.11 Chalazion right upper eyelid Lizeth Carranza, [facility] 01/01/2019 H11.31 Conjunctival hemorrhage, right eye Lizeth Carranza, [facility] 12/28/2018 J02.9 Acute pharyngitis, unspecified Arlyn Bar M.D. 12/28/2018 M54.5 Low back pain Arlyn Bar M.D. Plan of Treatment Future Appointment(s):07/15/2019 10:00 am - Fernando Larios M.D. at [facility] Fyylkp7207/01/2019 10:00 am - Fernando Larios M.D. at [facility] [id number] - Fernando Larios M.D.D45 Polycythemia veraI10 Essential (primary) hypertensionComments:continue current medication, call if bp elevation is persistent above 140/90B37.2 Candidiasis of skin and nailS76.322A Laceration of muscle, fascia and tendon of the posterior muscle group at thigh level, left thigh, initial encounterComments:history is compatable with a hamstring muscle tear and ecchymosisAllComments:Patient will be following up with Dr. Weinstein this week for his possible diagnosis of polycythemia. For now he is holding off on taking hydroxyurea. I believe he had a recent hamstring muscle tear causing extensive ecchymoses. Patient has had problems with intertrigo and cultures were taken to rule out erythrasma. Blood pressure is under good control on present dose of ramipril. Patient will use topical antifungal agents and dry the area in the groin. Return in 1-2 months Functional Status Description No Information Available Mental Status Description No Information Available Referrals Refer to Reason for Referral Status Appt Mathieu Frederick MD URGENT REFERRAL PLEASE SCHEDULE JOSUÉ ind: Scheduled elevated h/h jw [address] [facility] [address] [place], [place] [address] [phone] Taye Tenorio Consult and treat. LT Created [address] [facility] [place] [address] [place] [address] [phone]
--- OUTSIDE RECORDS SUMMARY | 2019-07-02 03:25 | XMS REPORT | Continuity of Care Document ---
:1940 External Reference #:[id number] Author Name Fernando Larios M.D. Address [address] [place] [address] Care Team Providers Name Role Phone Amadou Bower MD - Surgery Care Team Information Cro [phone] Jensen Osborn MD - Cardiovascular Care Team Information Cro Disease Amadou Foreman - Cardiovascular Disease Care Team Information Cro Problems Active Problems Provider Date Benign essential [...] SIG Qnty Indications Ordering Provider Date Ramipril take one capsule 90caps Tuan Ibrahim 05/24/2019 5mg Capsules by mouth Fernanda Husain Diazepam 1 by mouth four 90tabs Fernando Larios, 06/21/2018 2mg Tablets times a day as M.D. needed Vitamin B-12 CR 1 po qd 100tabs Fernando Larios, 08/04/2011 1000mcg M.D. Tablets ER Potassium Chloride take 1 tablet by 90tabs Fernando Lariso, 06/10/2010 Leah ER mouth once daily M.D. 20Meq Tablets ER Vitamin D-3 1 po qd 30tabs Unknown 4000Unit Tablets Ciclopirox Cream Unknown History Medications Fluconazole 300mg orally once a 6tabs B37.2 Fernando Calzada 05/09/2019 - 100mg week, repeat in one Fernanda Larios 06/08/2019 Tablets week. Ketoconazole apply to affected 60gm B37.2 Tuan Harrell 03/26/2019 - 2% area groin twice a MD Quique 07/01/2019 Cream day Cipro 1 by mouth twice a 14tabs Fernando Calzada 02/19/2019 - 250mg Tablets day x 7 d Fernanda Larios 03/26/2019 Note needs staylock br[place] Fernando Calzada 01/28/2019 - stabilization device Fernanda Larios 02/19/2019 Uroxatral 1 by mouth every day 60tabs Fernando Calzada 01/28/2019 - 10mg Fernanda Larios 02/19/2019 Tablets ER 24HR Oxycodone-Acetamino take one tablet by 30tadawood Calzada 01/17/2019 - phen mouth every 6 hours Fernanda Larios 02/19/2019 5-325mg as needed - maximum Tablets daily dose of 4 per day Bactrim DS 1 by mouth twice a 20tabs Fernando Calzada 01/11/2019 - day Fernanda Larios 02/19/2019 800-160mg Tablets Tobramycin instill 1 drop into 5ml Fernando Calzada 01/03/2019 - 0.3% affected eye every 4 Fernanda Larios 02/19/2019 Solution hours for infection Augmentin 1 by mouth twice a 14tabs Fernando Calzada 01/03/2019 - 875-125mg day x 7 days Fernanda Larios 01/10/2019 Tablets Polymyxin B instill 2 drops right 10ml H00.11 Lizeth 01/01/2019 - Sulfate/Trimethopri eye qid x 5 days, KORY Craranza 01/03/2019 m Sulfate ind: chalazion, conjunctivitis 55041-7.1Unit/ML-% Solution Medications Administered in Office Medication SIG Qnty Indications Ordering Provider Date Injection Subcutaneous Or Unknown 12/12/2017 Intramuscular Injection H1N1 MDCR vaccine any route Fernando Larios M.D. 06/18/2009 Injection Injection Subcutaneous Or Carlo Jordan M.D. 07/04/2003 Intramuscular Injection Immunizations CPT Code Status Date Vaccine Reaction Lot # [id number] Given 12/11/2018 Influenza Vac, Quadriv[place], [place] [address] Given 05/26/2018 Zoster (Shingles) Vaccine (HZV), #2 Recombinant, Subunit, Adjuvanted 22160 Given 12/17/2017 Influenza Vac, [place]riv[place], [place] [address] Given 01/16/2017 High-Dose, Influenza Virus [id number] Vacccine-fluzone 65 and older 34461 Given 01/14/2016 High-Dose, Influenza Virus [id number] Vacccine-fluzone 65 and older 40490 Given 01/12/2015 Pneumococcal Conjugate Vacc-13 [id number] 62599 Given 01/12/2015 High-Dose, Influenza Virus [id number] Vacccine-fluzone 65 and older 33824 Given 01/09/2014 High-Dose, Influenza Virus [id number] Vacccine-fluzone 65 and older 16259 Given 04/04/2013 Tdap Tetanus, W Pertussis [id number] 81917 Given 02/26/2013 Preservative free flu 3 yrs+ and older [id number] Given 01/09/2011 Split Influenza Medicare: Fluzone 44562 Given 12/21/2009 DO Not Use Split Influenza Virus [id number] Vaccine 68233 Given 03/05/2009 Pneumococcal Immunization [id number] 73857 Given 02/08/2007 DO Not Use Split Influenza Virus [id number] Vaccine 23275 Given 10/08/2006 Zostivax [id number] 90263 Given 02/03/2005 DO Not Use Split Influenza Virus Vaccine 79687 Given 06/06/2003 Pneumococcal Immunization 04180 Given 06/06/2003 Td Immunization, For Use In Individuals 7 Years Or Older 67933 Given 06/06/2003 DT Immunization 08809 Given 03/02/2003 DO Not Use Split Influenza Virus Vaccine 06157 Given 03/02/2003 DO Not Use Split Influenza Virus Vaccine 33017 Given 01/27/2002 DO Not Use Split Influenza Virus Vaccine 22583 Given 03/01/2001 DO Not Use Split Influenza Virus Vaccine 74037 Given 02/07/2000 DO Not Use Split Influenza Virus Vaccine 37048 Given 01/28/1999 Whole Influenza Virus Vaccine 20458 Given 01/28/1999 DO Not Use Split Influenza Virus Vaccine 83855 Given 02/07/1998 Influenza Immunization 09442 Given 01/12/1997 Influenza Immunization 85212 Given 02/13/1993 Td Immunization, For Use In Individuals 7 Years Or Older Vital Signs Date Vital Result Comment 07/01/2019 10:09am BP Systolic 150 mmHg BP Diastolic 88 mmHg Heart Rate 88 /min Body Temperature 98.4 F Respiratory Rate 20 /min Weight 230.00 lb 06/08/2019 9:21am Heart Rate 84 /min Body Temperature 97.2 F Height 70 inches 5'10" per pt Weight 231.00 lb BMI (Body Mass Index) 33.1 kg/m2 Results Test Acquired Date Facility Test Result H/L Range Note CBC Electronic [facility] 06/27/2019 [facility]) WBC 7.7 x10^3/UL 4.0- 10.0 RBC 5.41 x10^6/UL 3.93-6.00 HGB 16.6 g/dL 12.0-17.0 HCT 50 % 35-50 MCV 93.2 fL 80.0-95.0 MCH 30.7 pg 25.6-32.2 MCHC 32.9 g/dL 32.2-36.0 RDW-CV 16.6 % High 11.6-14.4 PLT 733 x10^3/UL High 163-400 MPV 8.3 fL Low 9.4-12.4 Meghan# 5.48 x10^3/UL 1.56-6.13 Lymph# 1.12 x10^3/UL Low 1.18-3.74 Nome# 0.61 x10^3/UL 0.24-0.82 Eos # 0.3 x10^3/UL 0.0-0.5 Baso # 0.09 x10^3/UL High 0.01-0.08 Meghan% 71.4 % High 34.0-70.0 Lymph % 14.6 % Low 20.0-52.0 Nome% 8.0 % 5.0-12.0 Eos% 3.9 % 0.7-7.0 Baso% 1.2 % 0.1-1.2 CBC Auto Diff 06/10/2019 [facility] White Blood Count 8.4 10^3/uL Normal 3.5- 10.8 Red Blood Count 5.10 10^6/uL Normal 4.18-5.48 Hemoglobin 15.7 g/dL Normal 14.0-18.0 Hematocrit 47 % Normal 42-52 Mean Corpuscular Volume 92 fL Normal 80-94 Mean Corpuscular Hemoglobin 31 pg Normal 27-31 Mean Corpuscular HGB Conc 33 g/dL Normal 31-36 Red Cell Distribution Width 15 % Normal 10-15 Platelet Count 864 10^3/uL High 150-450 Mean Platelet Volume 7.4 fL Normal 7.4-10.4 Abs Neutrophils 6.3 10^3/uL Normal 1.5-7.7 Abs Lymphocytes 0.9 10^3/uL Low 1.0-4.8 Abs Monocytes 0.8 10^3/uL Normal 0-0.8 Abs Eosinophils 0.2 10^3/uL Normal 0-0.6 Abs Basophils 0.1 10^3/uL Normal 0-0.2 Abs Nucleated RBC 0.0 10^3/uL Granulocyte % 75.3 % Lymphocyte % 10.6 % Monocyte % 9.8 % Eosinophil % 2.8 % Basophil % 1.5 % Nucleated Red Blood Cells % 0.0 Inr/Protime 06/10/2019 [facility] Inr 1.02 Normal 0.82-1.09 1 Laboratory test 06/10/2019 [facility] Partial Thrombo 45.2 seconds High 26.0- 38.0 finding Time PTT Fibrinogen 437.4 mg/dL High 110.8-404.3 Thrombin Time (Bovine), Plasma 17.4 sec 2 CBC Electronic (a New) 06/08/2019 [facility] WBC 9.66 4.0-10.0 (607)- - RBC 5.26 [...] High 0.7-7.0 Basophil% 1.9 % High 0-1.2 Wound Culture/Sensi 06/08/2019 [facility] Wound/Misc SEE RESULT 3 Culture-Gram Stain BELOW Laboratory test 06/03/2019 [facility] Pathologist Review (SEE NOTE) 4 finding Von Willebrand Disease 06/03/2019 [facility] Coagulation F VIII 179 % 55 - 200 5 Profile Activity von Willebrand Factor Antigen 208 % Abnormal 55 - 200 6 von Willebrand Factor Activity 147 % 55 - 200 7 von Willebrand Disease Interpr See Comment 8 von Willebrand Factor Multimer See interpretati <SEE NOTE> 9 VWF Multimer Interpretation See Comment 10 von Willebrand Panel Reviewed See Comment 11 von Willebrand Disease Interp See Comment 12 Manual Differential 06/03/2019 [facility] Immature Granulocytes 3.0 % Normal 0- 9 Neutrophil % 74.0 % Band % 3.0 % Normal 0-8 Lymphocytes % 9.0 % Monocytes % 6.0 % Eosinophils % 2.0 % Basophil % 1.0 % Variant Lymph % 5.0 % Normal 0-6 RBC Morphology Normal Normal CBC Auto Diff 06/03/2019 [facility] White Blood Count 10.2 10^3/uL Normal 3.5- [...] % Nucleated Red Blood Cells % 0.1 CBC Auto Diff 06/01/2019 [facility] White Blood Count 14.4 10^3/uL High 3.5- [...] Red Blood Cells % 0.2 Inr/Protime 06/01/2019 [facility] Inr 1.07 Normal 0.82-1.09 13 Comp Metabolic Panel 06/01/2019 [facility] Sodium 133 mmol/L Low 135-145 Potassium 5.0 [...] Egfr Non- 68.5 >60 Egfr 82.9 >60 14 Myeloprolif Neoplasm With 05/20/2019 [facility] MPNR Result see interpretati <SEE 15 RFX NOTE> MPNR Final Diagnosis See Comment 16 Laboratory test 05/20/2019 [facility] Erythropoietin 1.5 mIU/mL Abnormal 2.6 - 17 finding 18.5 BCR/Abl P190 05/20/2019 [facility] BCR/Abl p190 Result see interpretati 18 PCR <SEE NOTE> BCR/Abl PCR Specimen Whole Blood BCR/Abl p190 Final Diagnosis See Comment 19 BCR/Abl P210 PCR 05/20/2019 [facility] BCR/Abl p210 Result see interpretati <SEE 20 NOTE> BCR/Abl PCR Specimen Blood BCR/Abl p210 Final Diagnosis See Comment 21 Laboratory test finding 05/20/2019 [facility] Erythrocyte Sed Rate 0 mm/Hr Normal 0-19 Retic Count 05/20/2019 [facility] Retic Count 1.2 % Normal 0.5-1.5 Corrected Retic Count 1.5 % Normal 0.5-1.5 Maturation Factor Retic 1.0 Retic Index 1.50 Mean Retic Volume 120.1 Immature Retic Fraction 0.51 RBC Retic Count 6.19 10^6/uL High 4.18-5.48 Hematocrit for Retic CNT 57 % High 42-52 CBC Auto Diff 05/20/2019 [facility] White Blood Count 8.5 10^3/uL Normal 3.5- [...] Cells % 0.2 Laboratory test finding 05/20/2019 [facility] Ferritin 20.9 ng/mL Low 24-336 Iron & Iron Binding Capacity 05/20/2019 [facility] Iron 85 g/dL Normal 50-212 Unsaturated Iron Binding < 451 g/dL Total Iron Binding Capacity 466 g/dL High 250-450 Transferrin 333 mg/dL Normal 203-362 % Iron Saturation 18 % Normal 15-55 Laboratory test 05/20/2019 [facility] CRP High 1.31 mg/L <2.00 finding Sensitivity CBC + Hematology 05/10/2019 [facility] WBC 9.3 3.4-10.[address] x10E3/[place] [address] (607)- - RBC 5.96 x10E6/uL High 4.14-5.80 [...] RBC Comment Macrocytes prese <SEE NOTE> Normal 22 Platelet Comment See Comment: Adequate 23 Comprehensive Metabolic 05/10/2019 [facility]) Sodium 135 mEq/L 134-149 Prof Potassium 5.6 mEq/L High 3.6-5.5 24 Chloride 99 mEq/L 94-112 Carbon Dioxide 26 [...] 7-35 Ast (Sgot) 40 U/L High 5-34 25 Total Bilirubin 0.7 mg/dL 0.2-1.3 GFR Non- >60 ml/min/1.73m^ >=60 GFR >60 ml/min/1.73m^ >=60 Laboratory test 05/09/2019 [facility] Fungal Cult SEE RESULT 26 finding Other Sources BELOW Laboratory test 05/09/2019 [facility] Fungal Cult SEE RESULT 27 finding Other Sources BELOW Laboratory test 05/09/2019 [facility] Fungal Cult SEE RESULT 28 finding Other Sources BELOW CBC Electronic 05/07/2019 [facility] WBC 7.61 4.0-10. ([facility] New) (607)- - 0 RBC 6.32 High [...] 1.2 % 0-1.2 Ua - Non Micro ([facility]ma) 02/23/2019 [facility] Appearance clear (607)- - Color yellow Glucose, Urine (Fma/CMC/CTX) neg Bilirubin neg Ketones neg SP Grav 1.015 Blood neg PH 7.0 Protein neg Urobil 0.2 Nitrite neg Leukocytes (a/CMC/Centrex) neg Laboratory test finding 02/19/2019 [facility] Quickstrep NEG Negative (607)- - Ua - Micro ([facility]ma) 02/19/2019 [facility] Appearance cloudy (607)- - Color yellow Glucose, [...] - Z#Comments - Urine Culture And 02/19/2019 [facility] Urine Culture SEE RESULT 29 Sensitivities BELOW Ict-Hemoccult 01/21/2019 [facility] Ict Hemoccult (1) 01/10/19 Neg. (MCR)[facility]ma Screeni (607)- - Ict Hemoccult-(2) 01/11/19 Neg. Ict-Hemoccult (3) 01/12/19 Neg. Ova & Parasites Full 01/18/2019 [facility] Parasitic Exam, See Comment 30 Result O P: 01/18/2019 [facility] O P: SEE RESULT 31 Giardia/Cryptospor Giardia/Cryptospo BELOW Screen r Screen Laboratory test 01/18/2019 [facility] Stool Culture SEE RESULT 32, 33 finding BELOW Urine Culture And 01/18/2019 [facility] Urine Culture SEE RESULT 34 Sensitivities BELOW Laboratory test 01/18/2019 [facility] Magnesium 1.8 mg/dL Low 1.9-2.7 finding Lipase 17 U/L Normal 11.0-82.0 Liver Function Panel 01/18/2019 [facility] Total Protein 6.4 g/dL Normal 6.4- 8.9 Albumin 3.9 g/dL Normal 3.2-5.2 Globulin 2.5 g/dL Normal 2-4 Albumin/Globulin Ratio 1.6 Normal 1-3 Total Bilirubin 0.40 mg/dL Normal 0.2-1.0 Direct Bilirubin 0.10 mg/dL Normal 0.03-0.18 Indirect Bilirubin 0.3 mg/dL Normal 0.3-1.0 Alkaline Phosphatase 82 U/L Normal 34-104 Alt 49 U/L Normal 7-52 Ast 31 U/L Normal 13-39 Basic Metabolic Panel 01/18/2019 [facility] Sodium 129 mmol/L Low 135-145 Potassium 4.7 mmol/L Normal 3.5-5.0 Chloride 98 mmol/L Low 101-111 Co2 Carbon Dioxide 25 mmol/L Normal 22-32 Anion Gap 6 mmol/L Normal 2-11 Glucose 115 mg/dL High 70-100 Blood Urea Nitrogen 11 mg/dL Normal 6-24 Creatinine 0.79 mg/dL Normal 0.67-1.17 BUN/Creatinine Ratio 13.9 Normal 8-20 Calcium 9.0 mg/dL Normal 8.6-10.3 Egfr Non- 95.1 >60 Egfr 115.1 >60 35 Laboratory test finding 01/18/2019 [facility] Lactic Acid 1.2 mmol/L Normal 0.5- 2.0 36 Urinalysis Profile 01/18/2019 [facility] Urine Color Straw Urine Appearance Clear Urine Specific [place] 1.002 Low 1.010-1.030 Urine pH 6.0 Normal 5-9 Urine Urobilinogen Negative Negative Urine Ketones Negative Negative Urine Protein Negative Negative Urine Leukocytes Trace Abnormal Negative Urine Blood 3+ Abnormal Negative Urine Nitrite Negative Negative Urine Bilirubin Negative Negative Urine Glucose Negative Negative Urine White Blood Cell Trace(0-5/hpf) Absent Urine Red Blood Cell Trace(0-2/hpf) Absent Urine Bacteria Absent Absent CBC Auto Diff 01/18/2019 [facility] White Blood Count 7.7 10^3/uL Normal 3.5- [...] % Nucleated Red Blood Cells % 0.1 Laboratory test finding 01/14/2019 [facility] Lactic Acid 0.8 mmol/L Normal 0.5- 2.0 37 Comp Metabolic Panel 01/14/2019 [facility] Sodium 129 mmol/L Low 135-145 Potassium 4.2 [...] Egfr Non- 70.0 >60 Egfr 84.7 >60 38 Urinalysis Profile 01/14/2019 [facility] Urine Color Straw Urine Appearance Clear Urine Specific [place] 1.003 Low 1.010-1.030 Urine pH 5.0 Normal 5-9 Urine Urobilinogen Negative Negative Urine Ketones Trace Abnormal Negative Urine Protein Negative Negative Urine Leukocytes 2+ Abnormal Negative Urine Blood 2+ Abnormal Negative Urine Nitrite Negative Negative Urine Bilirubin Negative Negative Urine Glucose Negative Negative Urine White Blood Cell 1+(6-10/hpf) Abnormal Absent Urine Red Blood Cell Trace(0-2/hpf) Absent Urine Bacteria Absent Absent CBC Auto Diff 01/14/2019 [facility] White Blood Count 9.0 10^3/uL Normal 3.5- 10.8 Red Blood Count 4.88 10^6/uL Normal 4.18-5.48 [...] % Nucleated Red Blood Cells % 0.0 Laboratory test 01/14/2019 [facility] Blood Culture SEE RESULT 39 finding BELOW Urine Culture And 01/14/2019 [facility] Urine Culture SEE RESULT 40 Sensitivities BELOW Ua - Non Micro (a) 01/11/2019 [facility] Appearance CLEAR (607)- - Color YELLOW Glucose, Urine ([facility]/CTX) NEG Bilirubin NEG Ketones TRACE SP Grav 1.015 Blood NEG PH 6.0 Protein NEG Urobil 0.2 Nitrite NEG Leukocytes ([facility]/Centrex) NEG Comprehensive Metabolic 01/03/2019 [facility]) Sodium 135 mEq/L 134-149 Prof Potassium 4.7 mEq/L 3.6-5.5 Chloride 103 mEq/L 94-112 Carbon Dioxide 23 mEq/L 21-32 Glucose 108 mg/dL High 70-105 41 BUN 14 mg/dL 6-26 Creatinine 0.8 mg/dL [...] >60 ml/min/1.73m^ >=60 Lipid Profile 01/03/2019 [facility]) Cholesterol 188 mg/dL 120- 200 Triglycerides 138 mg/dL 30-200 HDL Cholesterol 60 mg/dL 30-70 LDL (Calculated) 100 CALC 0-129 VLDL Cholesterol 28 mg/dL 0-50 HDL Risk Factor 3.1 CALC 0.0-4.4 Laboratory test 01/03/2019 [facility]) Free T4 1.27 ng/dL 0.75- 1.54 finding TSH 1.86 mIU/L 0.50-6.00 PSA 0.8 ng/mL 0.0-4.0 CBC Electronic a 01/03/2019 [facility]) WBC 8.2 x10^3/UL 4.0- 10.0 RBC 5.43 x10^6/UL 3.93-6.00 HGB 16.7 g/dL 12.0-17.0 HCT 50 % 35-50 MCV 92.4 fL 80.0-95.0 MCH 30.8 pg 25.6-32.2 MCHC 33.3 g/dL 32.2-36.0 RDW-CV 15.4 % High 11.6-14.4 PLT 574 x10^3/UL High 163-400 MPV 9.0 fL Low 9.4-12.4 Meghan# 5.50 x10^3/UL 1.56-6.13 Lymph# 1.48 x10^3/UL 1.18-3.74 Nome# 0.76 x10^3/UL 0.24-0.82 Eos # 0.4 x10^3/UL 0.0-0.5 Baso # 0.06 x10^3/UL 0.01-0.08 Meghan% 67.0 % 34.0-70.0 Lymph % 18.0 % Low 20.0-52.0 Nome% 9.3 % 5.0-12.0 Eos% 4.4 % 0.7-7.0 Baso% 0.7 % 0.1-1.2 1 Standard intensity warfarin therapeutic range: 2.0-3.0 High intensity warfarin therapeutic range: 2.5-3.5 2 REFERENCE VALUE 15.8 - 24.9 Test Performed by: [place] [address] Post Framer: Yoni Ramirez M.D. Ph.D.; CLIA# [id number] 3 SEE RESULT BELOW Name: RADHA SOTO : [address]: Fernando Larios MD Acct: [id number] Unit: [id number] AGE: 78 Location: [facility] Re06/08/19 SEX: M Status: REG REF SPEC: [id number] MARLON: 06/08/19-1056 [facility] DR: Fernando Larios MD REQ: [id number] RECD: 06/08/19 STATUS: COMP _ SOURCE: AYLIN ELKINS: ORDERED: Culture Stain COMMENTS: [id number] Specimen Description groin rash Procedure Result Reported Site Wound/Misc Gram Stain Final 06/09/19- 1215 ML 3+ Epithelial Cells No Neutrophils Observed 3+ Gram Positive Bacilli 2+ Gram Positive Cocci 1+ Gram Positive Coccobacilli Wound/Misc Culture Final 06/11/19- 1225 ML Organism 1 [facility] Quantity 3+ * ML - Main Lab . END OF REPORT DEPARTMENT OF PATHOLOGY, [address] [place] [address] Miguel Harmon M.D. Director [facility] # [id number] 4 Persistent thrombocytosis noted. No blasts are seen. Clinical correlation and additional studies as warranted. Reviewed by Dr. Harmon 5 ADDITIONAL INFORMATION This test has been modified from the library associate's instructions. Its performance characteristics were determined by [facility] in a manner consistent with CLIA requirements. This test has not been cleared or approved by the U.S. Food and Drug Administration. 6 ADDITIONAL INFORMATION This test has been modified from the library associate's instructions. Its performance characteristics were determined by [facility] in a manner consistent with CLIA requirements. This test has not been cleared or approved by the U.S. Food and Drug Administration. 7 ADDITIONAL INFORMATION This test has been modified from the library associate's instructions. Its performance characteristics were determined by [facility] in a manner consistent with CLIA requirements. This test has not been cleared or approved by the U.S. Food and Drug Administration. Test Performed by: [place] [address] Post Framer: Yoni Ramirez M.D. Ph.D.; CLIA# [id number] 8 RESULT: See von Willebrand Disease Interp. 9 See interpretation 10 Plasma von Willebrand factor (VWF) multimer analysis reveals absence or decreased abundance of the highest molecular weight multimers (HMWM), but no definitely increased abundance of lower molecular weight von Willebrand factor (VWF) multimers, suggesting an acquired rather than congenital abnormality of von Willebrand factor (VWF) multimers, if artifact can be excluded. [place] decreased HMWM VWF multimers can occur in association with aortic valvular stenosis, hypertrophic obstructive cardiomyopathy, left ventricular assist device, congenital heart disease, thrombocytosis or monoclonal gammopathy, in addition to less frequent associations with other myeloproliferative or lymphoproliferative disorders, intravascular coagulation and fibrinolysis (ICF/DIC), vasculitis, thrombotic thrombocytopenic purpura (TTP) or hemolytic-uremic syndrome (HUS), etc., and is frequently but not always accompanied by discordantly lower VWF ristocetin cofactor activity and/or VWF activity (latex immunoassay) relative to VWF antigen level. Alternatively, similar reductions of HMWM VWF multimers can be artifactual, reflecting suboptimal sample processing (e.g., processing of blood and plasma samples at cold temperatures rather than room temperatures). Suggest clinical correlation, and if indicated consider follow-up von Willebrand disease (VWD) test panel ([facility] Coagulation Consultation AVWPR, including VWF multimer analysis request), with careful attention to specimen preparation. ADDITIONAL INFORMATION This test was developed and its performance characteristics determined by [facility] in a manner consistent with CLIA requirements. This test has not been cleared or approved by the U.S. Food and Drug Administration. Test Performed by: [place] [address] Post Framer: Yoni Ramirez M.D. Ph.D.; CLIA# [id number] RESULT: Mena Aragon M.D. 12 IMPRESSION: Loss of highest molecular-weight von Willebrand factor (VWF) multimers, see comments. Clinical correlation is recommended. COMMENTS: Although factor VIII, von Willebrand factor (VWF) antigen and VWF activity levels are normal or slightly elevated, there is a loss of the highest molecular-weight von Willebrand factor (VWF) multimers. Plasma von Willebrand factor (VWF) multimer analysis reveals absence or decreased abundance of the highest molecular weight multimers (HMWM), but no definitely increased abundance of lower molecular weight von Willebrand factor (VWF) multimers, suggesting an acquired rather than congenital abnormality of von Willebrand factor (VWF) multimers, if artifact can be excluded. [place] decreased HMWM VWF multimers can occur in association with aortic valvular stenosis, hypertrophic obstructive cardiomyopathy, left ventricular assist device, congenital heart disease, thrombocytosis or monoclonal gammopathy, in addition to less frequent associations with other myeloproliferative or lymphoproliferative disorders, intravascular coagulation and fibrinolysis (ICF/DIC), vasculitis, thrombotic thrombocytopenic purpura (TTP) or hemolytic-uremic syndrome (HUS), etc., and is frequently but not always accompanied by discordantly lower VWF ristocetin cofactor activity and/or VWF activity (latex immunoassay) relative to VWF antigen level. Alternatively, similar reductions of HMWM VWF multimers can be artifactual, reflecting suboptimal sample processing (e.g., processing of blood and plasma samples at cold temperatures rather than room temperatures). Suggest clinical correlation, and if indicated consider follow-up von Willebrand disease (VWD) test panel ([facility] Coagulation Consultation AVWPR, including VWF multimer analysis request VWFMS), with careful attention to specimen preparation. Interpreted by Lauren Aragon M.D./mitzi Test Performed by: [place] [address] Post Framer: Yoni Ramirez M.D. Ph.D.; CLIA# [id number] 13 Standard intensity warfarin therapeutic range: 2.0-3.0 High intensity warfarin therapeutic range: 2.5-3.5 14 Because ethnic data is not always readily [...] 15-29 5 Kidney failure <15 (or dialysis) 15 see interpretation 16 Peripheral blood, JAK2 V617F mutation analysis: Positive. JAK2 V617F mutated DNA was detected and measured at 12% of total JAK2 DNA. JAK2 V617F mutation is found with high frequency in [place] chromosome-negative myeloproliferative neoplasms (>95% in polycythemia vera [...] algorithm. See test catalogue for additional information: [email or web address]. Note: Starting from 05/01/2015, the calculation and reporting value of [id number]/total JAK2% is changed to more accurately reflect the true [id number] allele burden. Higher values are generally expected and for levels below 80% (currently reported with new calculation), 1-5 fold increase from the prior calculation is expected. The testing method is not changed, however the limit of analytic sensitivity is changed to 0.06%. Please contact the [facility] at [phone] if you have questions or concerns. Method summary - JAK2 V617F analysis: Quantitative, allele-specific polymerase chain reaction (PCR) assay was performed using extracted genomic DNA to evaluate for the point mutation causing JAK2 V617F. The analytic sensitivity of this assay has been determined at 0.06% (see [facility] Interpretive Handbook for method details). Signing Pathologist: Amadou Elmore M.D. ADDITIONAL INFORMATION This test was developed and its performance characteristics determined by [facility] in a manner consistent with CLIA requirements. This test has not been cleared or approved by the U.S. Food and Drug Administration. Test Performed by: [facility] [place] [id number] Post Framer: Yoni Ramirez M.D. Ph.D.; CLIA# [id number] 17 Test Performed by: [facility] [address] [place] [address] Post Framer: Yoni Ramirez M.D. Ph.D.; CLIA# [id number] 18 see interpretation PDF Report available at: [email or web address] 19 Peripheral blood, BCR/ABL1 mRNA level analysis (p190 [...] transcript level was evaluated using quantitative, reverse natural resources instructor PCR. The detection limit for this assay is 0.01%. See [facility] [employer] Test Catalog for additional method details. The [...] with a subsequent specimen. Please contact the [place] [facility] at [phone] with questions or if additional testing is required. Signing Pathologist: Nyla Bray M.D. ADDITIONAL INFORMATION This test was developed and its performance characteristics determined by [facility] in a manner consistent with CLIA requirements. This test has not been cleared or approved by the U.S. Food and Drug Administration. Test Performed by: [address] [address] Post Framer: Yoni Ramirez M.D. Ph.D.; [facility]# [id number] 20 see interpretation PDF Report available at: [email or web address] 21 Peripheral blood, BCR/ABL1 mRNA level analysis (p210 [...] level was evaluated using a quantitative, reverse natural resources instructor PCR. The analytical sensitivity of this assay [...] all possible fusion forms. Please contact the [place] [facility] at [phone] with questions or if additional testing is required. See the [facility] Interpretive Handbook for method details. [...] developed and its performance characteristics determined by [facility] in a manner consistent with CLIA requirements. This test has not been cleared or approved by the U.S. Food and Drug Administration. Test Performed by: [address] [address] Post Framer: Yoni Ramirez M.D. Ph.D.; CLIA# [id number] 22 Macrocytes present. 23 Platelet count verified by examination of peripheral blood smear. Adequate 24 RESULTS VERIFIED BY REPEAT ANALYSIS 25 RESULTS VERIFIED BY REPEAT ANALYSIS 26 SEE RESULT BELOW Name: RADHA SOTO Jenae : [address]: Tuan Lei MD Acct: [id number] Unit: [id number] AGE: 78 Location: [facility] Re05/09/19 SEX: M Status: REG REF SPEC: [id number] MARLON: 05/09/19-[address]: Tuan Lei MD REQ: [id number] RECD: 05/09/19 STATUS: COMP _ SOURCE: MISC SOURC SPDESC: ORDERED: Fungal - Other COMMENTS: [id number] Procedure Result Reported Site Fungal Cult - Other Sources Final 06/06/19- 1030 ML Fungal Culture No Growth of Mycotic Organisms 4 weeks * ML - Main Lab . END OF REPORT DEPARTMENT OF PATHOLOGY, [address] [place] [address] Miguel Harmon M.D. Director [facility] # [id number] 27 SEE RESULT BELOW Name: RADHA SOTO : [address]: Tuan Lei MD Acct: [id number] Unit: [id number] AGE: 78 Location: [facility] Re05/09/19 SEX: M Status: REG REF SPEC: [id number] MARLON: 05/09/19-1640 [facility] DR: Tuan Lei MD REQ: [id number] RECD: 05/09/19 STATUS: RES _ SOURCE: [facility] SPDESC: ORDERED: Fungal - Other COMMENTS: [id number] Procedure Result Reported Site Fungal Cult - Other Sources Preliminary 05/23/19- 1106 ML Fungal Culture No Growth of Mycotic Organisms 2 weeks * - Main Lab . END OF REPORT DEPARTMENT OF PATHOLOGY, [address] [place] [address] Miguel Harmon M.D. Director [facility] # [id number] 28 SEE RESULT BELOW Name: RADHA SOTO : [address]: Tuan Lei MD Acct: [id number] Unit: [id number] AGE: 78 Location: [facility] Re05/09/19 SEX: M Status: REG REF SPEC: [id number] MARLON: 05/09/19-1640 [facility] DR: Tuan Lei MD REQ: [id number] RECD: 05/09/19 STATUS: RES _ SOURCE: MISC SOURC SPDESC: ORDERED: Fungal - Other COMMENTS: [id number] Procedure Result Reported Site Fungal Cult - Other Sources Preliminary 05/16/19- 1345 ML Fungal Culture No Growth of Mycotic Organisms 1 week * ML - Main Lab . END OF REPORT DEPARTMENT OF PATHOLOGY, [address] [place] [address] Miguel Harmon M.D. Director [facility] # [id number] 29 SEE RESULT BELOW Name: RADHA SOTO : [address]: Fernando Larios MD Acct: [id number] Unit: [id number] AGE: 78 Location: [facility] Re02/19/19 SEX: M Status: REG REF SPEC: [id number] MARLON: 02/19/19 [facility] DR: Fernando Larios MD REQ: [id number] RECD: 02/19/19 STATUS:COMP _ [facility] ORDERED: Urine Culture COMMENTS: [id number] Urine Source: Random Procedure Result Reported Site Urine Culture Final 02/22/19 0843 ML Mixed upon extended incubation. Suggest resubmission. * ML - Main Lab . END OF REPORT DEPARTMENT OF PATHOLOGY, [address] [place] [address] Miguel Harmon M.D. Director [facility] # [id number] 30 SOURCE: STOOL PARASITIC EXAMINATION FINAL No parasites seen. Cryptosporidium, Cyclospora, and microsporidia are not readily detected by this method. Single negative specimen does not rule out parasitic infection. Test Performed by: [facility] [address] [address] Post Framer: Yoni Ramirez M.D. Ph.D.; [facility]# [id number] 31 SEE RESULT BELOW Name: RADHA SOTO : [address]: Amadou Brown MD Acct: [id number] Unit: [id number] AGE: 78 Location: ED Re01/18/19 SEX: M Status: REG ER SPEC: [id number] MARLON: 01/18/[address]: Myla BECKER REQ: [id number] RECD: 01/18/19 STATUS: JANIE PETE DR: Amadou [...] . END OF REPORT DEPARTMENT OF PATHOLOGY, [address] [place] [address] Miguel Harmon M.D. Director [facility] # [id number] 32 PLAIN CONTAINER ONLY RECEIVED: PLACE INTO [place] AT 1305 33 SEE RESULT BELOW Name: RADHA SOTO Jenae : [address]: Amadou Brown MD Acct: [id number] Unit: [id number] AGE: 78 Location: ED Re01/18/19 SEX: M Status: DEP ER SPEC: [id number] MARLON: 01/18/19 [facility] DR: Myla BECKER REQ: [id number] RECD: 01/18/19 STATUS: JANIE PETE DR: Amadou Larios MD _ SOURCE: STOOL SPDESC: ORDERED: Stool Culture COMMENTS: PLAIN CONTAINER ONLY RECEIVED: PLACE INTO [place] AT 1305 Procedure Result Reported Site Stool [...] sensitivities are required. Stool Specimen Description Final 01/18/191305 ML Stool Color Brown Stool Form Formed Stool Consistency Soft Pasty Shiga Toxin 1 2 Final 01/19/19- 1536 ML Organism 1 Negative Shiga Toxin 1 2 Immunochromatographic Assay * ML - Main Lab . END OF REPORT DEPARTMENT OF PATHOLOGY, [address] [place] [address] Miguel Harmon M.D. Director [facility] # [id number] 34 SEE RESULT BELOW Name: RADHA SOTO : [address]: Amadou Brown MD Acct: [id number] Unit: [id number] AGE: 78 Location: ED Re01/18/19 SEX: M Status: DEP ER SPEC: [id number] MARLON: 01/18/19 [facility] DR: Amadou Brown MD REQ: [id number] RECD: 01/18/19 STATUS: JANIE PETE DR: Fernando Larios MD _ SOURCE: URINE SPDESC: ORDERED: Urine Culture Procedure Result Reported Site Urine Culture Final 01/19/19- 1226 ML No Growth (<1,000 CFU/mL) * ML - Main Lab . END OF REPORT DEPARTMENT OF PATHOLOGY, [address] [place] [address] Miguel Harmon M.D. Director [facility] # [id number] 35 Because ethnic data is not always readily [...] 15-29 5 Kidney failure <15 (or dialysis) 36 [facility] Severe Sepsis and Septic Shock Management Bundle Measure requires all lactic acids initially measuring >2.0 mmol/L be repeated. 37 [facility] Severe Sepsis and Septic Shock Management Bundle Measure requires all lactic acids initially measuring >2.0 mmol/L be repeated. 38 Because ethnic data is not always readily [...] 15-29 5 Kidney failure <15 (or dialysis) 39 SEE RESULT BELOW Name: RADHA SOTO : [address]: Lucy Brothers MD Acct: [id number] Unit: [id number] AGE: 78 Location: [place] [address] Re01/14/19 Dis: 01/16/19 SEX: M Status: DIS IN SPEC: [id number] MARLON: 01/14/19 [facility] DR: Gianna Calix MD REQ: [id number] RECD: 01/14/19 STATUS: JANIE PETE DR: Fernando Larios MD _ SOURCE: BLOOD,VENO SPDESC: ORDERED: Blood Cult Procedure Result Reported Site Aerobic Culture Bottle Final 01/19/19- 0025 ML No Growth Day 5 Anaerobic Culture Bottle Final 01/19/19- 0025 ML No Growth Day 5 * ML - Main Lab . END OF REPORT DEPARTMENT OF PATHOLOGY, [address] [place] [address] Miguel Harmon M.D. Director [facility] # [id number] 40 SEE RESULT BELOW Name: RADHA SOTO : [address]: Lucy Brothers MD Acct: [id number] Unit: [id number] AGE: 78 Location: [place] [address] Re01/14/19 SEX: M Status: ADM Marie SPEC: [id number] MARLON: 01/13/19-[address]: Gianna Calix MD REQ: [id number] RECD: 01/14/19-101 STATUS: JANIE PETE DR: Fernando Larios MD _ SOURCE: URINE SPDESC: ORDERED: Urine Culture Procedure Result Reported Site Urine Culture Final 01/15/19- 09 ML No Growth (<1,000 CFU/mL) * ML - Main Lab . END OF REPORT DEPARTMENT OF PATHOLOGY, [address] [place] [address] Miguel Harmon M.D. Director [facility] # [id number] 41 NON-FASTING Procedures Date Code Description Status 01/03/2019 02835 Electrocardiogram Complete Completed 05/01/2015 05155782 Colonoscopy Completed 01/05/2008 97270093 Colonoscopy Completed Medical Devices Description No Information Available Encounters Type Date Location Provider Dx Diagnosis Office Visit 06/08/2019 9:20a Main Office Fernando Larios, Grace Polycythemia verakilah Michael I10 Essential (primary) hypertension B37.2 Candidiasis of skin and nail S76.322A Lacerat msl/fasc/tnd post grp at thi lev, left thigh, init Office Visit 05/24/2019 2:00p [facility] Office Tuan Ibrahim R2Radha Rash and other Fernanda Husain nonspecific skin eruption D45 Polycythemia vera Office Visit 05/09/2019 8:20a [facility] Tuan T. B37.2 Candidiasis of Office MD Quique skin and nail Office Visit 05/07/2019 11:00a Main Office Lizeth B37.2 Candidiasis of Tere, [employer]IPMENT INSPECTOR skin and nail I10 Essential (primary) hypertension R53.1 Weakness Office Visit 04/07/2019 2:30p [facility] Lizeth B37.2 Candidiasis of Tere, MI[employer]IL[employer] EQUIPMENT INSPECTOR skin and nail Office Visit 03/26/2019 12:30p [facility] Lizeth B37.2 Candidiasis of Tere, MI[employer]IL[employer] EQUIPMENT INSPECTOR skin and nail Office Visit 02/23/2019 9:45a [facility] Lizeth N40.0 Benign prostatic Tere, [employer] EQUIPMENT INSPECTOR hyperplasia without lower urinry tract symp N39.0 Urinary tract infection, site not specified Office Visit 02/19/2019 9:00a [facility] Office Fernando Calzada N40.0 Benign prostatic Fernanda Larios hyperplasia without lower urinry tract symp J02.9 Acute pharyngitis, unspecified R10.84 Generalized abdominal pain N39.0 Urinary tract infection, site not specified Office Visit 01/28/2019 3:00p [facility] Fernando Calzada N40.1 Benign prostatic Fernanda Larios hyperplasia with lower urinary tract symp Office Visit 01/11/2019 6:40p Main Office Fernando Calzada I1Dinesh Essential Fernanda Larios (primary) hypertension N41.0 Acute prostatitis Office Visit 01/03/2019 2:00p [facility] Fernando Calzada H00.11 Chalazion right Ric M.D. upper eyelid I10 Essential (primary) hypertension N40.0 Benign prostatic hyperplasia without lower urinry tract symp H10.89 Other conjunctivitis L57.0 Actinic keratosis Z00.00 Encntr for general adult medical exam w/o abnormal findings Z79.82 terminal gauger (current) use of aspirin Office Visit 01/01/2019 12:00p [facility] Lizeth H00.11 Chalazion right Tere, [employer]QUIPMENT INSPECTOR upper eyelid H11.31 Conjunctival hemorrhage, right eye Assessments Date Code Description Provider 07/01/2019 D45 Polycythemia vera Fernando Larios M.D. 07/01/2019 I10 Essential (primary) hypertension Fernando Larios M.D. 06/27/2019 R79.89 Other specified abnormal findings of Fernando Larios M.D. 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 06/08/2019 D45 Polycythemia vera Fernando Larios M.D. [...] 05/10/2019 I10 Essential (primary) hypertension Lizeth Tere, [facility] 05/09/2019 B37.2 Candidiasis of skin and nail Tuan Lei MD 05/07/2019 B37.2 Candidiasis of skin and nail Lizeth Tere, [facility] 05/07/2019 I10 Essential (primary) hypertension Lizeth Tere, [facility] 05/07/2019 R53.1 Weakness Lizeth Tere, [facility] 04/07/2019 B37.2 Candidiasis of skin and nail Lizeth Tere, [facility] 03/26/2019 B37.2 Candidiasis of skin and nail Lizeth Tere, [employer] INSPECTOR 02/23/2019 N40.0 Benign prostatic hyperplasia without Lizeth Tere, [employer]QUIPMENT INSPECTOR lower urinary tract symptoms 02/23/2019 N39.0 Urinary tract infection, site not Lizeth Tere, [employer]IPMENT INSPECTOR specified 02/19/2019 N40.0 Benign prostatic hyperplasia without Fernando Larios M.D. lower urinary tract symptoms 02/19/2019 J02.9 [...] M.D. examination without abnormal findings 01/03/2019 Z79.82 terminal gauger (current) use of aspirin Fernando Larios M.D. 01/01/2019 H00.11 Chalazion right upper eyelid KORY Enamorado 01/01/2019 H11.31 Conjunctival hemorrhage, right eye KROY Enamorado Plan of Treatment Future Appointment(s):09/30/2019 10:20 am - Fernando Larios M.D. at [facility] Chujhy4607/04/2019 10:30 am - Fernando Larios M.D. at [facility]2019 - Fernando Larios M.D.D45 Polycythemia veraI10 Essential (primary) hypertensionComments:continue current medication, call if bp elevation is persistent above 140/90 Functional Status Description No Information Available Mental Status Description No Information Available Referrals Refer to Dr Reason for Referral Status Appt Mathieu Frederick MD URGENT REFERRAL PLEASE SCHEDULE JOSUÉ ind: Scheduled elevated h/h jw [address] [facility] [address] [place] [address] [phone] Taye Tenorio Consult and treat. LT Created [address] [place] [address] [place] [address] [phone]
[2019-07-02 05:10] LABS: ABS Basophils 0.1 10^3/ul (0-0.2); ABS Eosinophils 0.2 10^3/ul (0-0.6); ABS Lymphocytes 1.1 10^3/ul (1.0-4.8); ABS Monocytes 0.5 10^3/ul (0-0.8); ABS Neutrophils 4.7 10^3/ul (1.5-7.7); Eosinophil % 3.1 %; Hematocrit 50 % (42-52); Hemoglobin 17.1 g/dL (14.0-18.0); Lymphocyte % 16.5 %; Mean Corpuscular HGB Conc 34 g/dL (31-36); Mean Corpuscular Hemoglobin 32 pg (27-31); Mean Corpuscular Volume 93 fL (80-94); Mean Platelet Volume 6.5 fL (7.4-10.4); Nucleated Red Blood Cells % 0.1; Platelet Count 645 10^3/uL (150-450); Red Blood Count 5.38 10^6 /uL (4.18-5.48); Red Cell Distribution Width 17 % (10-15); White Blood Count 6.6 10^3/uL (3.5-10.8)
[2019-07-02 05:11] LABS: Urine Appearance Clear; Urine Bilirubin Negative (Negative); Urine Blood Negative (Negative); Urine Color Straw; Urine Glucose Negative (Negative); Urine Ketones Negative (Negative); Urine Nitrite Negative (Negative); Urine Protein Negative (Negative); Urine Specific Gravity 1.003 (1.010-1.030); Urine Urobilinogen Negative (Negative)
--- NOTE | 2019-07-02 05:32 | ED ---
Palpitations / Dysrhythmia - HPI Summary HPI Summary: Patient is a 78 year-old male presenting to [facility] with a chief complaint of dizziness and irregular heart beat this morning around 0200. 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 He has a history of premature contractions, so he attributed the symptoms to that. He woke up around 0200 this morning to use the bathroom when he felt lightheaded and dizzy but did not have any falls. He attributed this to taking the Cardizem a few hours before. He notes that he was also placed on Hydroxyurea a week ago by Dr. Weinstein from oncology, which also causes him to feel fatigued. He was recently taken off ASA a few weeks ago due to a muscle tear. He states that he last took Cardizem two years ago. He is feeling better in the ED. Past medical history includes hypertension, sleep apnea, CVA. Nonsmoker, weekly alcohol use, no substance use. Medications reviewed. Allergies noted. - History of Current Complaint Chief Complaint: EDDysrhythmPalp Time Seen by Provider: 07/02/19 03:23 Hx Obtained From: Patient Onset/Duration: Sudden Onset, Resolved Severity Initially: Moderate Severity Currently: None Character: Irregular Aggravating: Other - standing up Alleviating: Nothing Associated Signs & Symptoms: Lightheadedness, Dizzy - Allergy/Home Medications Allergies/Adverse Reactions: Allergies Allergy/AdvReac Type Severity Reaction Status Date / Time No Known Allergies Allergy Verified 01/18/19 11:13 Home Medications: Home Medications Ramipril CAP* [Altace CAP*] 5 mg PO DAILY 01/14/19 [History Confirmed 06/01/19] Hydroxyurea [Siklos] 07/02/19 [History] PMH/Surg Hx/FS Hx/Imm Hx Endocrine/Hematology History: Reports: Hx Anticoagulant Therapy - Apirin Denies: Hx Diabetes Cardiovascular History: Reports: Hx Hypertension, Other Cardiovascular Problems/ Disorders - HX ARRYTHMIA- ABLATION 2012- NO PROBLEMS SINCE Denies: Hx Pacemaker/ICD Respiratory History: Reports: Hx Sleep Apnea History: Denies: Hx Dialysis, Hx Renal Disease Musculoskeletal History: Reports: Hx Arthritis Denies: Hx Scoliosis Sensory History: Reports: Hx Cataracts - BILATERAL, Hx Contacts or Glasses - Reading Denies: Hx Hearing Aid Opthamlomology History: Reports: Hx Cataracts - BILATERAL, Hx Contacts or Glasses - Reading Neurological History: Reports: Hx CVA Denies: Hx Headaches, Hx Seizures, Other Neuro Impairments/Disorders Psychiatric History: Denies: Hx Panic Disorder - Surgical History Surgical History: Yes Surgery Procedure, Year, and Place: cardiac ablations; hernia;. appendectomy. CHOLECYSTECTOMY Hx Anesthesia Reactions: No - Immunization History Date of Tetanus Vaccine: ukn Date of Influenza Vaccine: 12/09/2018 Immunizations Up to Date: Yes Infectious Disease History: No Infectious Disease History: Denies: Traveled Outside the [place] in Last 30 Days - Family History Known Family History: Negative: Cardiac Disease - Social History Alcohol Use: Weekly Alcohol Amount: 1-2 GLASSES PER WEEK Hx Substance Use: No Substance Use Type: Reports: None Hx Tobacco Use: No Smoking Status (MU): Never Smoked Tobacco - Additional Comments History Additional Comments: premature heart contractions, cardiac ablation, hypertension, sleep apnea, CVA Review of Systems - ROS Summary Review of Systems Summary: Home Medications Medication Instructions Recorded Confirmed Type Ramipril CAP* [Altace CAP*] 5 mg PO DAILY 01/14/19 06/01/19 History Hydroxyurea [Siklos] 07/02/19 History Positive: Palpitations Neurological/Mental Status: Other - lightheadedness All Other Systems Reviewed And Are Negative: Yes Physical Exam - Summary Physical Exam Summary: General: Well-developed, Well-nourished male. Mildly anxious appearing. No acute distress. HEENT: Normocephalic, Atraumatic. Eyes: Conjuctiva normal, PERRL. Oropharynx: Clear, mucous membranes moist, (-) exudates. Neck: Soft, FROM, (-) lymphadenopathy, (-) thyromegaly, (-) JVD. Cardiovascular: Normal sinus rhythm, (-) murmur. Lungs: Clear to auscultation bilaterally (-) wheezes, (-) rales, (-) rhonchi. Abdomen: Soft, non-tender, non-distended, (-) organomegaly, normal bowel sounds. Back: (-) CVA tenderness Extremities: No edema. Skin: Warm, dry, (-) rash. Neuro: Alert and oriented x3, moves all extremities equally. No ataxia. No gait disturbance. No sensory deficit. Normal strength, normal sensation. Psychiatric: Mood normal, affect normal. Triage Information Reviewed: Yes Vital Signs On Initial Exam: Initial Vitals Temp Pulse Resp BP Pulse Ox 96.7 F 76 20 168/98 96 07/02/19 03:07 07/02/19 03:07 07/02/19 03:07 07/02/19 03:07 07/02/19 03:07 Vital Signs Reviewed: Yes Procedures - Sedation Patient Received Moderate/Deep Sedation with Procedure: No Diagnostics - Vital Signs Vital Signs Temp Pulse Resp BP Pulse Ox 07/02/19 03:07 96.7 F 76 20 168/98 96 - Laboratory Lab Results: Lab Results 07/02/19 07/02/19 Range/Units 05:02 05:02 WBC 6.6 (3.5-10.8) 10^3/uL RBC 5.38 (4.18-5.48) 10^6 /uL Hgb 17.1 (14.0-18.0) g/dL Hct 50 (42-52) % MCV 93 (80-94) fL MCH 32 H (27-31) pg MCHC 34 (31-36) g/dL RDW 17 H (10-15) % Plt Count 645 H (150-450) 10^3/uL MPV 6.5 L (7.4-10.4) fL Neut % (Auto) 71.0 % Lymph % (Auto) 16.5 % [place] % (Auto) 8.2 % Eos % (Auto) 3.1 % Baso % (Auto) 1.2 % Absolute Neuts (auto) 4.7 (1.5-7.7) 10^3/ul Absolute Lymphs (auto) 1.1 (1.0-4.8) 10^3/ul Absolute Monos (auto) 0.5 (0-0.8) 10^3/ul Absolute Eos (auto) 0.2 (0-0.6) 10^3/ul Absolute Basos (auto) 0.1 (0-0.2) 10^3/ul Absolute Nucleated RBC 0.0 10^3/ul Nucleated RBC % 0.1 Urine Color Straw Urine Appearance Clear Urine pH 6.0 (5-9) Ur Specific [place] 1.003 L (1.010-1.030) Urine Protein Negative (Negative) Urine Ketones Negative (Negative) Urine Blood Negative (Negative) Urine Nitrate Negative (Negative) Urine Bilirubin Negative (Negative) Urine Urobilinogen Negative (Negative) Ur Leukocyte Esterase Negative (Negative) Urine Glucose Negative (Negative) Result Diagrams: 07/02/19 05:02 07/02/19 05:02 Lab Statement: Any lab studies that have been ordered have been reviewed, and results considered in the medical decision making process. - Radiology CXR Radiology Interpretation Completed By: ED Physician Summary of Radiographic Findings: No infiltrate. No pleural effusion. This imaging scan was reviewed and interpreted by Dr. Calix, pending official read. - EKG 0314 Cardiac Rate: NL - 77 BPM EKG Rhythm: Sinus Rhythm Summary of EKG Findings: EKG at 0314 reveals normal sinus rhythm with rate of 77 BPM, no acute changes, no ischemic changes. This EKG was reviewed and interpreted by Dr. Calix. Re-Evaluation - Re-Evaluation First Eval Re-Evaluation Time: 05:50 Change: Improved Comment: I discussed all results. He is feeling well. Discussed all symptoms that warrant return to the ED. Course/Dx - Course Course Of Treatment: 78-year-old male presents with dizziness. Palpitations. He states this started last night about 10:00 when he was feeling some palpitations. He took a Cardizem at that time. He states he has some at home for whenever he gets tachycardia. He has a history of irregular heartbeat. He states last time he took Cardizem was 2 years ago. He had atrial fibrillation previously and had a ablation done 7 years ago. He denies any fevers or chills. No cough. No vomiting or diarrhea. Upon arrival he is feeling better. No tachycardia. Sinus rhythm on the monitor. He says when he got up at 2:00 to the bathroom he felt very dizzy. Had sensation of palpitations. He thought maybe it was from the Cardizem that he took previously. Also states he was started on hydroxyurea by his heme lung doctor about a week ago. But his symptoms didn't go away so he came to the emergency room by ambulance. On physical exam his vitals are normal. Sinus rhythm. No significant abnormalities. Workup demonstrates significant abnormality. Sinus rhythm EKG with no acute ischemic changes. Patient discharged home. Follow-up with cardiology. Follow sooner for any worsening symptoms. - Diagnoses Provider Diagnoses: Dizziness, Palpitations Discharge ED - Sign-Out/Discharge Documenting (check all that apply): Patient Departure - Patient will be dishcarged home. - Discharge Plan Condition: Stable Disposition: HOME Patient Education Materials: Heart Palpitations (DC), Dizziness (ED) Referrals: Fernando Larios MD [Primary Care Provider] - 3 Days Additional Instructions: Please follow up with your primary care physician within three days. Please return to ED for any new or worsening symptoms. - Billing Disposition and Condition Condition: STABLE Disposition: Home - Attestation Statements Document Initiated by Scribe: Yes Documenting Scribe: Zoey Evans Provider For Whom Winter is Documenting (Include Credential): Gianna Calix MD Scribe Attestation: Zoey Bonilla, scribed for Gianna Calix MD on 07/04/19 at 0614. Scribe Documentation Reviewed: Yes Provider Attestation: The documentation as recorded by the Zoey burdick accurately reflects the service I personally performed and the decisions made by me, Gianna Calix MD Status of Scribe Document: Viewed
[2019-07-02 05:43] LABS: ALT 24 U/L (7-52); AST 26 U/L (13-39); Albumin 4.4 g/dL (3.2-5.2); Albumin/Globulin Ratio 1.5 (1-3); Alcohol < 10 mg/dL (<10); Alkaline Phosphatase 86 U/L (34-104); Anion Gap 9 mmol/L (2-11); BUN/Creatinine Ratio 13.2 (8-20); Blood Urea Nitrogen 12 mg/dL (6-24); CO2 Carbon Dioxide 25 mmol/L (22-32); Calcium 9.8 mg/dL (8.6-10.3); Chloride 99 mmol/L (101-111); EGFR African American 97.8 (>60); EGFR Non-African American 80.8 (>60); Globulin 2.9 g/dL (2-4); Glucose 116 mg/dL (70-100); Potassium 4.3 mmol/L (3.5-5.0); Sodium 133 mmol/L (135-145); Total Protein 7.3 g/dL (6.4-8.9)
[2019-07-02 05:44] LABS: Troponin I 0.01 ng/mL (<0.03)
[2019-07-02 05:57] LABS: TSH (Thyroid Stimulating Horm) 3.51 mcIU/mL (0.34-5.60)
[2019-07-02 06:53] VITALS: BP 149/90
== END 2019-07-02 06:45 | disposition home or self-care (01) ==
LOC: ED 03:06
DX: R00.2 Palpitations (principal); R42 Dizziness and giddiness; G47.30 Sleep apnea, unspecified; Z79.01 Long term (current) use of anticoagulants; Z79.82 Long term (current) use of aspirin; I10 Essential (primary) hypertension; Z86.73 Personal history of transient ischemic attack (TIA), and cerebral infarction without residual deficits; Z86.79 Personal history of other diseases of the circulatory system; Z79.899 Other long term (current) drug therapy
CPT/HCPCS: 36415; 71045; 80053; 80320; 81003; 83605; 83735; 84443; 84484; 85025; 93005; 99283; G0480

== ENCOUNTER 2021-03-21 10:51 | Observation (INO) ==
[2021-03-21 11:43] LABS: ABS Basophils 0.1 10^3/ul (0-0.2); ABS Eosinophils 0.1 10^3/ul (0-0.6); ABS Lymphocytes 0.6 10^3/ul (1.0-4.8); ABS Monocytes 0.5 10^3/ul (0-0.8); ABS Neutrophils 3.9 10^3/ul (1.5-7.7); Hematocrit 41 % (42-52); Hemoglobin 14.5 g/dL (14.0-18.0); Lymphocyte % 11.5 %; Mean Corpuscular HGB Conc 35 g/dL (31-36); Mean Corpuscular Hemoglobin 39 pg (27-31); Mean Corpuscular Volume 111 fL (80-94); Mean Platelet Volume 6.6 fL (7.4-10.4); Nucleated Red Blood Cells % 0.1; Platelet Count 507 10^3/uL (150-450); Red Blood Count 3.75 10^6 /uL (4.18-5.48); Red Cell Distribution Width 14 % (10-15); White Blood Count 5.1 10^3/uL (3.5-10.8)
[2021-03-21 11:56] LABS: Albumin 4.5 g/dL (3.2-5.2); Albumin/Globulin Ratio 1.5 (1-3); Calcium 9.4 mg/dL (8.6-10.3); Globulin 3.1 g/dL (2-4); Potassium 4.1 mmol/L (3.5-5.0); Total Bilirubin 0.6 mg/dL (0.2-1.0); Total Protein 7.6 g/dL (6.4-8.9); eGFR CKD-EPI 81.4 (>60)
[2021-03-21 12:08] LABS: INR 1.07 (0.86-1.15)
[2021-03-21 13:11] LABS: Magnesium 1.9 mg/dL (1.9-2.7)
[2021-03-21] MEDS ORDERED: Potassium Chlor 20 meq TAB.ER PO ONE (16:31)
[2021-03-21] MEDS ORDERED: Magnesium Sulfate 2 gm BAG 2 GM/50 ML BAG IVPB ONE (16:32)
[2021-03-21] MEDS ORDERED: Enoxaparin 40 MG/0.4 ML SYR SUBCUT SCH ×3 (17:00→18:00)
[2021-03-21 17:21] LABS: Rapid COVID-19 Molecular Undetected (Undetected)
[2021-03-21 19:45] LABS: TSH Ultra Thyroid Stim Horm 4.18 mcIU/mL (0.34-5.60)
[2021-03-22 07:19] LABS: Anion Gap 7 mmol/L (2-11); Blood Urea Nitrogen 14 mg/dL (6-24); CO2 Carbon Dioxide 25 mmol/L (22-32); Calcium 9.1 mg/dL (8.6-10.3); Chloride 102 mmol/L (101-111); Glucose 124 mg/dL (70-100); Hematocrit 39 % (42-52); Hemoglobin 13.1 g/dL (14.0-18.0); Magnesium 2.1 mg/dL (1.9-2.7); Mean Corpuscular HGB Conc 34 g/dL (31-36); Mean Corpuscular Hemoglobin 38 pg (27-31); Mean Corpuscular Volume 112 fL (80-94); Mean Platelet Volume 6.6 fL (7.4-10.4); Platelet Count 432 10^3/uL (150-450); Potassium 4.4 mmol/L (3.5-5.0); Red Blood Count 3.45 10^6 /uL (4.18-5.48); Red Cell Distribution Width 13 % (10-15); Sodium 134 mmol/L (135-145); eGFR CKD-EPI 83.5 (>60)
[2021-03-22] MEDS ORDERED: Aminophylline 25 MG/ML VIAL ONE (09:00)
[2021-03-22] MEDS ORDERED: Regadenoson 0.4 MG/5 ML SYRINGE ONE (09:00)
[2021-03-22 12:05] VITALS: BP 159/90
[2021-03-22 15:27] LABS: Folate > 20.00 ng/mL (5.90-24.80); Vitamin B12 593 pg/mL (180-914)
== END 2021-03-22 16:20 | disposition home or self-care (01) ==
LOC: ED 10:51 → EDHOLD 16:25 → INTOOBSV 16:25 → SUATTDRO 16:25 → MEDTELE 16:27
PROVIDERS: ADMIT Internal Medicine; ATTEND Internal Medicine

== ENCOUNTER 2023-12-05 12:45 | Inpatient (IN) ==
[2023-12-05] MEDS: Morphine 2 MG/ML SYRINGE IV ONE ×2 (13:32→14:32)
[2023-12-05 13:46] LABS: Hematocrit 40.4 % (38-53); Hemoglobin 14.1 g/dL (13.2-16.3); Mean Corpuscular Hemoglobin 39.4 pg (27-33); Mean Corpuscular Hgb Conc 35.1 g/dL (31-36); Mean Corpuscular Volume 112.3 fL (80-97); Mean Platelet Volume 6.3 fL (7.5-11.2); Platelet Count 546 10^3/uL (150-450); Red Blood Count 3.59 10^6/uL (4.06-5.63); Red Cell Distribution Width 15.1 % (12-17); White Blood Count 6.3 10^3/uL (3.6-10.2)
[2023-12-05 14:18] LABS: Albumin 4.6 g/dL (3.2-5.2); Albumin/Globulin Ratio 1.6 (1-3); Calcium 9.4 mg/dL (8.6-10.3); Creatinine, Serum 0.91 mg/dL (0.67-1.17); Globulin 2.9 g/dL (2-4); Potassium 4.6 mmol/L (3.5-5.0); Total Bilirubin 0.8 mg/dL (0.2-1.0); Total Protein 7.5 g/dL (6.4-8.9); eGFR CKD-EPI 84.1 (>60)
[2023-12-05] MEDS: NS 0.9% 500 ml BAG 500 ML IV ONE (14:32)
[2023-12-05 14:33] LABS: ABS Eosinophils 0.1 10^3/uL (0.0-0.5); ABS Lymphocytes 0.3 10^3/uL (1.0-4.8); ABS Monocytes 0.5 10^3/uL (0.0-1.1); ABS Neutrophils 5.3 10^3/uL (1.5-7.6); ABS Nucleated RBC 0.01 10^3/ul; Eosinophil % 0.9 %; Lymphocyte % 5.1 %; Nucleated Red Blood Cells % 0.1 %/100WBC (0.0-0.8)
[2023-12-05] MEDS: HYDROmorphone 0.5 MG/0.5 ML SYRINGE IV ONE (15:06)
[2023-12-05] MEDS ORDERED: Polyethylene Glycol 3350 17 GM PACKET PO PRN (17:25)
[2023-12-05] MEDS ORDERED: Morphine 4 MG/ML VIAL (1 ml) ONE (17:36)
[2023-12-05] MEDS: Morphine 10 MG/ML VIAL (1 ml) IV PRN (17:38)
[2023-12-05] MEDS: diazePAM INJ CARPUJECT 5 MG/ML SYRINGE IV ONE (18:15)
[2023-12-05] MEDS: diazePAM INJ CARPUJECT 5 MG/ML SYRINGE ONE (18:29)
[2023-12-05] MEDS: Lactated Ringers 1000 ml BAG 1,000 ML IV ONE (21:03)
[2023-12-05] MEDS: Carboxymethylcellulose/Glyceri 10 ML OPHTH.GEL lubricant eye gel BOTH EYES SCH (21:06)
[2023-12-06 06:25] LABS: ABS Eosinophils 0.1 10^3/uL (0.0-0.5); ABS Lymphocytes 0.3 10^3/uL (1.0-4.8); ABS Monocytes 0.6 10^3/uL (0.0-1.1); ABS Neutrophils 8.4 10^3/uL (1.5-7.6); Eosinophil % 0.6 %; Hematocrit 37.7 % (38-53); Hemoglobin 12.9 g/dL (13.2-16.3); Lymphocyte % 2.8 %; Mean Corpuscular Hemoglobin 38.4 pg (27-33); Mean Corpuscular Hgb Conc 34.1 g/dL (31-36); Mean Corpuscular Volume 112.6 fL (80-97); Mean Platelet Volume 6.3 fL (7.5-11.2); Platelet Count 531 10^3/uL (150-450); Red Blood Count 3.35 10^6/uL (4.06-5.63); Red Cell Distribution Width 15.1 % (12-17); White Blood Count 9.3 10^3/uL (3.6-10.2)
[2023-12-06 06:59] LABS: Calcium 8.5 mg/dL (8.6-10.3); Creatinine, Serum 0.82 mg/dL (0.67-1.17); Magnesium 1.7 mg/dL (1.9-2.7); Phosphorus 3.5 mg/dL (2.5-5.0); Potassium 4.6 mmol/L (3.5-5.0); eGFR CKD-EPI 87.7 (>60)
[2023-12-06] MEDS: Magnesium Sulfate 2 gm BAG 2 GM/50 ML BAG IVPB ONE (09:39)
[2023-12-06 11:12] LABS: Osmolality Serum 271 mOsm/kg (275-295)
[2023-12-06] MEDS ORDERED: fentaNYL 100 mcg/2 ml 50 MCG/ML VIAL ONE (11:28)
[2023-12-06] MEDS ORDERED: Propofol 10 MG/ML 20 ML BTL ONE ×2 (11:28→13:46)
[2023-12-06] MEDS ORDERED: Lidocaine 2% PF 5 ML VIAL ONE (11:28)
[2023-12-06] MEDS ORDERED: ceFAZolin 2 GM PREMIX 2 GM/50 ML BAG ONE (11:48)
[2023-12-06 12:48] LABS: Calcium 8.6 mg/dL (8.6-10.3); Creatinine, Serum 0.88 mg/dL (0.67-1.17); Potassium 4.4 mmol/L (3.5-5.0); eGFR CKD-EPI 85.9 (>60)
[2023-12-06] MEDS ORDERED: Metoprolol Tartrate 5 mg VIAL 5 ml VIAL (1 mg/ml) ONE (12:49)
[2023-12-06] MEDS ORDERED: Etomidate 40 mg/20 ml (2 MG/ML) 20 ml VIAL (40 mg) ONE (12:50)
[2023-12-06] MEDS ORDERED: Rocuronium 50 mg VIAL 10 mg/ml 5 ml VIAL (50 mg) ONE (13:11)
[2023-12-06] MEDS ORDERED: Ondansetron 4 mg VIAL 2 MG/ML 2 ml VIAL ONE (13:46)
[2023-12-06] MEDS ORDERED: Dexamethasone IV 4 MG/ML VIAL 1 ml VIAL ONE (13:46)
[2023-12-06] MEDS ORDERED: Albuterol 2.5mg/3 ml (0.083%) NEB.SOLN INH ONE (15:19)
[2023-12-06] MEDS: Albuterol 2.5mg/3 ml (0.083%) NEB.SOLN INH ONE (15:30)
[2023-12-06 15:42] LABS: Hematocrit 39.6 % (38-53); Hemoglobin 13.4 g/dL (13.2-16.3)
[2023-12-06] MEDS ORDERED: Ondansetron 4 mg VIAL 2 MG/ML 2 ml VIAL IV PRN (16:37)
[2023-12-06] MEDS: Labetalol IV 5 MG/ML 20 ml VIAL IV PUSH ONE (16:54)
[2023-12-06 17:39] LABS: Urine Potassium Concentration 47.3 mmol/L
[2023-12-06 17:44] LABS: Urine Osmo 470 mOsm/kg (150-1150)
[2023-12-06 18:29] LABS: Calcium 8.6 mg/dL (8.6-10.3); Creatinine, Serum 0.96 mg/dL (0.67-1.17); Potassium 4.6 mmol/L (3.5-5.0); eGFR CKD-EPI 78.9 (>60)
[2023-12-06] MEDS: Magnesium Hydroxide LIQ 30 ML UDC PO SCH (21:23)
[2023-12-06] MEDS: ceFAZolin 2 GM PREMIX 2 GM/50 ML BAG IV SCH (21:24)
[2023-12-07 01:33] LABS: Calcium 8.3 mg/dL (8.6-10.3); Creatinine, Serum 0.97 mg/dL (0.67-1.17); Potassium 4.5 mmol/L (3.5-5.0); eGFR CKD-EPI 77.9 (>60)
[2023-12-07 06:18] LABS: Calcium 8.2 mg/dL (8.6-10.3); Creatinine, Serum 0.9 mg/dL (0.67-1.17); Potassium 4.5 mmol/L (3.5-5.0); eGFR CKD-EPI 85.3 (>60)
[2023-12-07 07:16] LABS: ABS Eosinophils 0.1 10^3/uL (0.0-0.5); ABS Lymphocytes 0.4 10^3/uL (1.0-4.8); ABS Monocytes 0.9 10^3/uL (0.0-1.1); ABS Neutrophils 7.1 10^3/uL (1.5-7.6); Eosinophil % 0.8 %; Hematocrit 33.9 % (38-53); Hemoglobin 11.7 g/dL (13.2-16.3); Lymphocyte % 4.3 %; Mean Corpuscular Hemoglobin 38.9 pg (27-33); Mean Corpuscular Hgb Conc 34.4 g/dL (31-36); Mean Corpuscular Volume 113.1 fL (80-97); Mean Platelet Volume 6.4 fL (7.5-11.2); Platelet Count 506 10^3/uL (150-450); Red Cell Distribution Width 14.8 % (12-17); White Blood Count 8.5 10^3/uL (3.6-10.2)
[2023-12-07] MEDS ORDERED: Enoxaparin 40 MG/0.4 ML SYR SUBCUT SCH (09:00)
[2023-12-07 10:12] LABS: Folate 19.1 ng/mL (5.90-24.80)
[2023-12-07] MEDS: Furosemide 40 mg/4 ml IV VIAL IV SLOW PU ONE (10:44)
[2023-12-07 11:23] LABS: TSH Ultra Thyroid Stim Horm 1.73 mcIU/mL (0.34-5.60)
[2023-12-07] MEDS: Enoxaparin 40 MG/0.4 ML SYR SUBCUT SCH (13:16)
[2023-12-07 15:48] LABS: Calcium 8.7 mg/dL (8.6-10.3); Creatinine, Serum 1.16 mg/dL (0.67-1.17); eGFR CKD-EPI 62.9 (>60)
[2023-12-07] MEDS: Polyethylene Glycol 3350 17 GM PACKET PO PRN (19:53)
[2023-12-07 23:53] LABS: Calcium 8.4 mg/dL (8.6-10.3); Creatinine, Serum 1.23 mg/dL (0.67-1.17); Potassium 4.9 mmol/L (3.5-5.0); eGFR CKD-EPI 58.6 (>60)
[2023-12-08 06:44] LABS: ABS Eosinophils 0.2 10^3/uL (0.0-0.5); ABS Lymphocytes 0.4 10^3/uL (1.0-4.8); ABS Monocytes 0.9 10^3/uL (0.0-1.1); ABS Neutrophils 6.8 10^3/uL (1.5-7.6); Eosinophil % 2.3 %; Hemoglobin 11.2 g/dL (13.2-16.3); Lymphocyte % 4.5 %; Mean Corpuscular Hemoglobin 39.5 pg (27-33); Mean Corpuscular Hgb Conc 34.9 g/dL (31-36); Mean Corpuscular Volume 113.1 fL (80-97); Mean Platelet Volume 6.5 fL (7.5-11.2); Platelet Count 521 10^3/uL (150-450); Red Blood Count 2.83 10^6/uL (4.06-5.63); Red Cell Distribution Width 14.9 % (12-17); White Blood Count 8.3 10^3/uL (3.6-10.2)
[2023-12-08 06:53] LABS: Calcium 8.3 mg/dL (8.6-10.3); Creatinine, Serum 1.11 mg/dL (0.67-1.17); Magnesium 2.1 mg/dL (1.9-2.7); Potassium 4.8 mmol/L (3.5-5.0); eGFR CKD-EPI 66.3 (>60)
[2023-12-08] MEDS: Polyethylene Glycol 3350 17 GM PACKET PO SCH (09:33)
[2023-12-08] MEDS: Lactated Ringers 1000 ml BAG 1,000 ML IV ONE (10:31)
[2023-12-08] MEDS: Magnesium Hydroxide LIQ 30 ML UDC PO PRN (14:13)
[2023-12-08 17:26] LABS: Calcium 8.6 mg/dL (8.6-10.3)
[2023-12-08 17:55] LABS: Creatinine, Serum 1.21 mg/dL (0.67-1.17); eGFR CKD-EPI 59.8 (>60)
[2023-12-08] MEDS: Senna TAB 8.6 mg TAB PO PRN (21:02)
[2023-12-09 07:21] LABS: ABS Basophils 0.1 10^3/uL (0.0-0.1); ABS Eosinophils 0.3 10^3/uL (0.0-0.5); ABS Lymphocytes 0.5 10^3/uL (1.0-4.8); ABS Monocytes 0.8 10^3/uL (0.0-1.1); ABS Neutrophils 5.4 10^3/uL (1.5-7.6); Eosinophil % 4.2 %; Hematocrit 28.8 % (38-53); Hemoglobin 10.3 g/dL (13.2-16.3); Lymphocyte % 7.4 %; Mean Corpuscular Hemoglobin 40.6 pg (27-33); Mean Corpuscular Hgb Conc 35.7 g/dL (31-36); Mean Corpuscular Volume 113.7 fL (80-97); Mean Platelet Volume 6.4 fL (7.5-11.2); Platelet Count 495 10^3/uL (150-450); Red Blood Count 2.54 10^6/uL (4.06-5.63); Red Cell Distribution Width 14.5 % (12-17); White Blood Count 7.1 10^3/uL (3.6-10.2)
[2023-12-09 07:42] LABS: Calcium 8.3 mg/dL (8.6-10.3); Creatinine, Serum 0.99 mg/dL (0.67-1.17); Potassium 4.5 mmol/L (3.5-5.0); eGFR CKD-EPI 76.1 (>60)
[2023-12-09] MEDS: NS 0.9% 500 ml BAG 500 ML IV SCH (09:28)
[2023-12-09 16:51] LABS: Calcium 8.3 mg/dL (8.6-10.3); Creatinine, Serum 0.94 mg/dL (0.67-1.17); Potassium 4.8 mmol/L (3.5-5.0); eGFR CKD-EPI 80.9 (>60)
[2023-12-09 22:46] LABS: Calcium 8.3 mg/dL (8.6-10.3); Creatinine, Serum 0.89 mg/dL (0.67-1.17); Potassium 5.1 mmol/L (3.5-5.0); eGFR CKD-EPI 85.6 (>60)
[2023-12-10 06:26] LABS: Calcium 8.2 mg/dL (8.6-10.3); Creatinine, Serum 0.88 mg/dL (0.67-1.17); Magnesium 1.8 mg/dL (1.9-2.7); Potassium 4.8 mmol/L (3.5-5.0); eGFR CKD-EPI 85.9 (>60)
[2023-12-10 08:00] LABS: ABS Basophils 0.1 10^3/uL (0.0-0.1); ABS Eosinophils 0.3 10^3/uL (0.0-0.5); ABS Lymphocytes 0.4 10^3/uL (1.0-4.8); ABS Monocytes 0.7 10^3/uL (0.0-1.1); ABS Neutrophils 5.5 10^3/uL (1.5-7.6); Eosinophil % 4.1 %; Hemoglobin 10.5 g/dL (13.2-16.3); Lymphocyte % 6.2 %; Mean Corpuscular Hemoglobin 39.7 pg (27-33); Mean Corpuscular Hgb Conc 34.9 g/dL (31-36); Mean Corpuscular Volume 113.8 fL (80-97); Mean Platelet Volume 6.4 fL (7.5-11.2); Nucleated Red Blood Cells % 0.1 %/100WBC (0.0-0.8); Platelet Count 605 10^3/uL (150-450); Red Blood Count 2.64 10^6/uL (4.06-5.63); Red Cell Distribution Width 14.1 % (12-17)
[2023-12-10] MEDS: Magnesium Sulfate 2 gm BAG 2 GM/50 ML BAG IVPB ONE (09:19)
[2023-12-10 18:03] LABS: Calcium 8.4 mg/dL (8.6-10.3); Creatinine, Serum 0.81 mg/dL (0.67-1.17); Potassium 4.9 mmol/L (3.5-5.0)
[2023-12-10 23:04] LABS: Calcium 8.2 mg/dL (8.6-10.3); Potassium 4.8 mmol/L (3.5-5.0); eGFR CKD-EPI 75.1 (>60)
[2023-12-11] MEDS: Benzocaine/Menthol LOZ PO PRN (03:34)
[2023-12-11 07:19] LABS: ABS Eosinophils 0.1 10^3/uL (0.0-0.5); ABS Lymphocytes 0.4 10^3/uL (1.0-4.8); ABS Monocytes 0.7 10^3/uL (0.0-1.1); ABS Neutrophils 5.8 10^3/uL (1.5-7.6); Eosinophil % 1.5 %; Hematocrit 30.8 % (38-53); Hemoglobin 10.8 g/dL (13.2-16.3); Lymphocyte % 6.2 %; Mean Corpuscular Hemoglobin 39.8 pg (27-33); Mean Corpuscular Hgb Conc 35.2 g/dL (31-36); Mean Corpuscular Volume 113.3 fL (80-97); Mean Platelet Volume 6.7 fL (7.5-11.2); Platelet Count 732 10^3/uL (150-450); Red Blood Count 2.72 10^6/uL (4.06-5.63); Red Cell Distribution Width 14.2 % (12-17)
[2023-12-11 07:37] LABS: Calcium 8.3 mg/dL (8.6-10.3); Creatinine, Serum 0.92 mg/dL (0.67-1.17); Potassium 4.8 mmol/L (3.5-5.0); eGFR CKD-EPI 83.1 (>60)
[2023-12-11 13:14] LABS: Rapid COVID-19 Molecular Undetected (Undetected)
[2023-12-12 06:34] LABS: Calcium 7.9 mg/dL (8.6-10.3); Creatinine, Serum 0.83 mg/dL (0.67-1.17); Magnesium 1.7 mg/dL (1.9-2.7); Potassium 4.4 mmol/L (3.5-5.0); eGFR CKD-EPI 87.4 (>60)
[2023-12-12 06:36] LABS: ABS Basophils 0.1 10^3/uL (0.0-0.1); ABS Eosinophils 0.1 10^3/uL (0.0-0.5); ABS Lymphocytes 0.6 10^3/uL (1.0-4.8); ABS Monocytes 0.6 10^3/uL (0.0-1.1); ABS Neutrophils 3.8 10^3/uL (1.5-7.6); ABS Nucleated RBC 0.01 10^3/ul; Eosinophil % 2.4 %; Hematocrit 28.3 % (38-53); Hemoglobin 9.8 g/dL (13.2-16.3); Lymphocyte % 10.6 %; Mean Corpuscular Hemoglobin 39.8 pg (27-33); Mean Corpuscular Hgb Conc 34.6 g/dL (31-36); Mean Platelet Volume 6.6 fL (7.5-11.2); Nucleated Red Blood Cells % 0.2 %/100WBC (0.0-0.8); Platelet Count 601 10^3/uL (150-450); Red Blood Count 2.46 10^6/uL (4.06-5.63); Red Cell Distribution Width 14.3 % (12-17); White Blood Count 5.2 10^3/uL (3.6-10.2)
[2023-12-14 09:15] LABS: Rapid COVID-19 Molecular Undetected (Undetected)
[2023-12-14 10:34] VITALS: BP 138/66
== END 2023-12-14 11:10 | DRG 522 ==
LOC: EDHOLD 12:45 → ED 12:45 → SUATTDRO 15:11 → SSU 16:57 → SUATTDRO 12-06 10:43
PROVIDERS: ADMIT Internal Medicine; ATTEND Student in an Organized Health Care Education/Training Program

== ENCOUNTER 2024-03-04 13:09 | Inpatient (IN) ==
[2024-03-04 14:34] LABS: ABS Basophils 0.1 10^3/uL (0.0-0.1); ABS Lymphocytes 0.3 10^3/uL (1.0-4.8); ABS Monocytes 0.4 10^3/uL (0.0-1.1); Eosinophil % 0.5 %; Hematocrit 25.1 % (38-53); Hemoglobin 8.9 g/dL (13.2-16.3); Lymphocyte % 5.4 %; Mean Corpuscular Hemoglobin 42.5 pg (27-33); Mean Corpuscular Hgb Conc 35.5 g/dL (31-36); Mean Corpuscular Volume 119.7 fL (80-97); Mean Platelet Volume 6.4 fL (7.5-11.2); Nucleated Red Blood Cells % 0.1 %/100WBC (0.0-0.8); Platelet Count 563 10^3/uL (150-450); Red Cell Distribution Width 17.2 % (12-17); White Blood Count 5.8 10^3/uL (3.6-10.2)
[2024-03-04 14:35] LABS: INR 1.16 (0.85-1.14)
[2024-03-04 14:46] LABS: Albumin 3.7 g/dL (3.2-5.2); Albumin/Globulin Ratio 1.5 (1-3); Calcium 8.8 mg/dL (8.6-10.3); Creatinine, Serum 0.82 mg/dL (0.67-1.17); Globulin 2.5 g/dL (2-4); Magnesium 1.7 mg/dL (1.9-2.7); Potassium 4.3 mmol/L (3.5-5.0); Total Bilirubin 0.5 mg/dL (0.2-1.0); Total Protein 6.2 g/dL (6.4-8.9); eGFR CKD-EPI 87.7 (>60)
[2024-03-04 14:58] LABS: TSH Ultra Thyroid Stim Horm 4.27 mcIU/mL (0.34-5.60)
[2024-03-04] MEDS: Iohexol 350 (CONTRAST) 500 ML MDV IV ONE (15:05)
[2024-03-04 16:18] LABS: High Sensitivity Troponin 1 Hr 11 pg/mL (<20)
[2024-03-04 17:19] LABS: Urine Appearance Turbid; Urine Bilirubin Negative (Negative); Urine Blood Negative (Negative); Urine Color Yellow; Urine Glucose Negative (Negative); Urine Ketones 1+ (Negative); Urine Nitrite Negative (Negative); Urine Protein 1+ (>=30 mg/dL) (Negative); Urine Specific Gravity 1.031 (1.002-1.030); Urine Urobilinogen Negative (Negative); Urine pH 5.5 (5.0-8.0)
[2024-03-04 17:33] LABS: Urine Bacteria Absent /HPF (Absent); Urine Red Blood Cell Absent /HPF (0-Trace); Urine Uric Acid Crystals Present /HPF (Absent); Urine White Blood Cell Trace(0-5/hpf) /HPF (0-Trace)
[2024-03-04 19:53] LABS: C Reactive Protein 39.88 mg/L (<8.01)
[2024-03-04] MEDS ORDERED: Magnesium Sulfate 2 gm BAG 2 GM/50 ML BAG IVPB ONE (20:19)
[2024-03-04] MEDS: Lactated Ringers 1000 ml BAG 1,000 ML IV SCH (21:11)
[2024-03-05] MEDS: Enoxaparin 40 MG/0.4 ML SYR SUBCUT SCH (00:26)
[2024-03-05] MEDS: Magnesium Sulfate 2 gm BAG 2 GM/50 ML BAG IVPB ONE (00:26)
[2024-03-05 06:54] LABS: ABS Eosinophils 0.1 10^3/uL (0.0-0.5); ABS Lymphocytes 0.3 10^3/uL (1.0-4.8); ABS Monocytes 0.3 10^3/uL (0.0-1.1); ABS Neutrophils 3.3 10^3/uL (1.5-7.6); Eosinophil % 1.6 %; Hematocrit 22.5 % (38-53); Hemoglobin 7.8 g/dL (13.2-16.3); Lymphocyte % 7.7 %; Mean Corpuscular Hemoglobin 40.7 pg (27-33); Mean Corpuscular Hgb Conc 34.5 g/dL (31-36); Mean Corpuscular Volume 118.2 fL (80-97); Mean Platelet Volume 6.2 fL (7.5-11.2); Nucleated Red Blood Cells % 0.1 %/100WBC (0.0-0.8); Platelet Count 510 10^3/uL (150-450); Red Cell Distribution Width 16.7 % (12-17); White Blood Count 4.1 10^3/uL (3.6-10.2)
[2024-03-05 07:16] LABS: Creatinine, Serum 0.62 mg/dL (0.67-1.17); Potassium 4.1 mmol/L (3.5-5.0); eGFR CKD-EPI 95.4 (>60)
[2024-03-05] MEDS ORDERED: SACCHAROMYCES BOULARDII 250 MG PO SCH (09:00)
[2024-03-05 09:05] LABS: Magnesium 1.9 mg/dL (1.9-2.7)
[2024-03-05] MEDS: Lactated Ringers 1000 ml BAG 1,000 ML IV SCH (13:22)
[2024-03-05 14:35] LABS: Ferritin 417.9 ng/mL (24-336)
[2024-03-06 04:55] LABS: ABS Eosinophils 0.1 10^3/uL (0.0-0.5); ABS Lymphocytes 0.4 10^3/uL (1.0-4.8); ABS Monocytes 0.3 10^3/uL (0.0-1.1); ABS Neutrophils 3.1 10^3/uL (1.5-7.6); Eosinophil % 1.8 %; Hematocrit 20.3 % (38-53); Hemoglobin 7.3 g/dL (13.2-16.3); Lymphocyte % 11.2 %; Mean Corpuscular Hemoglobin 41.9 pg (27-33); Mean Corpuscular Hgb Conc 35.7 g/dL (31-36); Mean Corpuscular Volume 117.4 fL (80-97); Mean Platelet Volume 6.3 fL (7.5-11.2); Platelet Count 495 10^3/uL (150-450); Red Blood Count 1.73 10^6/uL (4.06-5.63); Red Cell Distribution Width 16.9 % (12-17); White Blood Count 3.9 10^3/uL (3.6-10.2)
[2024-03-06 05:27] LABS: Creatinine, Serum 0.57 mg/dL (0.67-1.17); Magnesium 1.6 mg/dL (1.9-2.7); eGFR CKD-EPI 97.9 (>60)
[2024-03-06] MEDS: Polyethylene Glycol 3350 17 GM PACKET PO PRN (09:59)
[2024-03-06] MEDS: Senna TAB 8.6 mg TAB PO SCH (20:36)
[2024-03-07 16:50] LABS: Calcium 8.3 mg/dL (8.6-10.3); Creatinine, Serum 0.71 mg/dL (0.67-1.17); Magnesium 1.6 mg/dL (1.9-2.7); Potassium 4.3 mmol/L (3.5-5.0); eGFR CKD-EPI 91.6 (>60)
[2024-03-07] MEDS: Magnesium Sulf 4 GM/100 ML IV 4,000 MG/100 ML BAG IVPB ONE (17:15)
[2024-03-07 18:42] LABS: Hematocrit 23.8 % (38-53); Hemoglobin 8.4 g/dL (13.2-16.3)
[2024-03-08 07:07] LABS: Calcium 8.3 mg/dL (8.6-10.3); Creatinine, Serum 0.62 mg/dL (0.67-1.17); Magnesium 2.1 mg/dL (1.9-2.7); Potassium 4.2 mmol/L (3.5-5.0); eGFR CKD-EPI 95.4 (>60)
[2024-03-09 06:40] LABS: Calcium 8.2 mg/dL (8.6-10.3); Creatinine, Serum 0.61 mg/dL (0.67-1.17); Potassium 4.3 mmol/L (3.5-5.0); eGFR CKD-EPI 95.9 (>60)
[2024-03-09 07:41] LABS: ABS Eosinophils 0.1 10^3/uL (0.0-0.5); ABS Lymphocytes 0.4 10^3/uL (1.0-4.8); ABS Monocytes 0.3 10^3/uL (0.0-1.1); ABS Neutrophils 2.9 10^3/uL (1.5-7.6); Eosinophil % 2.2 %; Hematocrit 22.2 % (38-53); Hemoglobin 7.8 g/dL (13.2-16.3); Lymphocyte % 10.7 %; Mean Corpuscular Hgb Conc 35.2 g/dL (31-36); Mean Corpuscular Volume 119.3 fL (80-97); Mean Platelet Volume 6.2 fL (7.5-11.2); Nucleated Red Blood Cells % 0.1 %/100WBC (0.0-0.8); Platelet Count 531 10^3/uL (150-450); Red Blood Count 1.86 10^6/uL (4.06-5.63); Red Cell Distribution Width 16.9 % (12-17); White Blood Count 3.6 10^3/uL (3.6-10.2)
[2024-03-09 13:57] LABS: Albumin 3.1 g/dL (3.2-5.2)
[2024-03-10 07:10] LABS: Calcium 8.4 mg/dL (8.6-10.3); Creatinine, Serum 0.6 mg/dL (0.67-1.17); Potassium 4.4 mmol/L (3.5-5.0); eGFR CKD-EPI 96.4 (>60)
[2024-03-10] MEDS ORDERED: Sulfur Hexaflouride MICROSPHR 25 MG VIAL IV PRN (08:29)
[2024-03-10 10:40] VITALS: BP 153/83
[2024-03-10 10:52] LABS: Rapid COVID-19 Molecular Undetected (Undetected)
== END 2024-03-10 13:45 | DRG 86 ==
LOC: EDHOLD 13:09 → ED 13:09 → SUATTDRO 19:10 → MEDTELE 21:24
PROVIDERS: ADMIT Internal Medicine; ATTEND Internal Medicine